=== PATIENT | female | born 1960 | race Caucasian/White ===

== ENCOUNTER 2023-09-01 08:53 | Outpatient (OUT) | payer OTHER, SELFPAY ==
--- NOTE | 2023-09-01 08:58 | MM_ITS ---
Patient: NORBERTO FREEMAN Exam Date: 09/01/2023 : 1960 Gender:F Ordering : DR Madhu Carrillo . Admission #: [id number] Family : DR Jayy Cordoba D.O. Order #: [id number] CLICK HERE TO VIEW EXAM RADIOLOGY REPORT PROCEDURE: MM TOMOSYNTHESIS SCREENING BI COMPARISON: MG MAMM SCREEN 3D GREG CAD, 05/29/2022. MG MAMM SCREEN 3D GREG CAD, 03/26/2021. INDICATIONS: Screening Calculator Name NCI Breast Cancer Risk Assessment Tool 5 Year Breast Cancer Risk 1.80% Lifetime Breast Cancer Risk 8.20% Personal Breast Cancer No Personal Ovarian Cancer No Treatments None Family Cancers Grandmother-maternal with uterine cancer at age ~60. LOCATION: [facility] BREAST COMPOSITION: Heterogeneously dense,which may obscure small masses. FINDINGS: DIAGNOSTIC CATEGORY 2--BENIGN FINDING. NO CHANGE FROM COMPARISON. Scattered benign-appearing nodules are present. Scattered benign-appearing calcifications are present. Scattered benign-appearing lymph nodes are present. RIGHT BREAST: No significant suspicious finding. LEFT BREAST: No significant suspicious finding. RECOMMENDATIONS: ROUTINE MAMMOGRAM AND CLINICAL EVALUATION IN 12 MONTHS. PLEASE NOTE: A NORMAL MAMMOGRAM DOES NOT EXCLUDE THE POSSIBILITY OF BREAST CANCER. A CLINICALLY SUSPICIOUS PALPABLE LUMP SHOULD BE BIOPSIED. Dictated by: Demetrio Paulino MD on 09/01/2023 at 10:51 Approved by: Demetrio Paulino MD on 09/01/2023 at 10:52
== END 2023-09-01 08:54 | disposition home or self-care (01) ==
LOC: MAMMO 08:53
PROVIDERS: PCP Internal Medicine; Visit Provider Obstetrics & Gynecology
DX: Z12.31 Encounter for screening mammogram for malignant neoplasm of breast (principal); Z80.49 Family history of malignant neoplasm of other genital organs
CPT/HCPCS: 77063; 77067

== ENCOUNTER 2024-01-31 20:42 | Outpatient (REF) | payer OTHER, SELFPAY ==
[2024-02-03 18:11] LABS: Age Gdln ACOG Testing Note (.); HPV Aptima Negative (Negative); IGP, Aptima HPV, rfx 16/18,45 Note (.)
== END 2024-01-31 20:43 | disposition home or self-care (01) ==
LOC: LAB 20:42
PROVIDERS: PCP Internal Medicine; Visit Provider Obstetrics & Gynecology
DX: Z01.419 Encounter for gynecological examination (general) (routine) without abnormal findings (principal)
CPT/HCPCS: 87624; G0145

== ENCOUNTER 2024-02-09 10:00 | Outpatient (OUT) | payer OTHER, SELFPAY ==
--- OUTSIDE RECORDS SUMMARY | 2024-02-09 10:16 | XMS_ITS | CCD ---
Author Name Unknown Address [address] [place] [address] Organization [facility] Care Team Providers Care Resource Development Manager Name Role Phone Nadege Yeboah Attending Unavailable Nadege Yeboah Admitting Unavailable Adalid, Jayy Primary Care Unavailable TRINO Yeboah Attending Provider [phone] DO Jayy Cordoba Primary Care Provider RADHA BOOGIE Admitting Unavailable RADHA BOOGIE Attending Unavailable ADALID, DR IRAHETA Primary Care Unavailable ABDIAZIZ, DR ANNALISE Short Admitting Unavailable ABDIAZIZ, DR ANNALISE Short Attending Unavailable BALL, DR IRAHETA Primary Care Unavailable WEST, DR ANNALISE Short Consulting Unavailable ABDIAZIZ, DR ANNALISE Short Admlorna Unavailable WEST, DR ANNALISE Short Attending Unavailable ADALID, DR IRAHETA Primary Care Unavailable ABDIAZIZ, DR ANNALISE Short Consulting Unavailable ABDIAZIZ, DR ANNALISE Short Admlorna Unavailable WEST, DR ANNALISE Short Attending Unavailable BALL, DR IRAHETA Primary Care Unavailable WEST, DR ANNALISE Short Consulting Unavailable ABDIAZIZ, DR ANNALISE Short Admlorna Unavailable ABDIAZIZ, DR ANNALISE Short Attending Unavailable ADALID, DR IRAHETA Primary Care Unavailable ABDIAZIZ, DR ANNALISE Short Consulting Unavailable ABDIAZIZ, DR ANNALISE Short Admlorna Unavailable ABDIAZIZ, DR ANNALISE Short Attending Unavailable BALL, DR IRAHETA Primary Care Unavailable WEST, DR ANNALISE Sohrt Consulting Unavailable PAULO ., DR GARCIA Admitting Unavailable PAULO ., DR GARCIA Attending Unavailable ADALID, DR IRAHETA Primary Care Unavailable ABDIAZIZ, DR ANNALISE Short Consulting Unavailable PAULO ., DR GARCIA Consulting Unavailable PETE, ANNALISE Kim Unavailable ABDIAZIZ, DR ANNALISE Short Admitting Unavailable ABDIAZIZ, DR ANNALISE Short Attending Unavailable ADALID, DR IRAHETA Primary Care Unavailable ABDIAZIZ, DR ANNALISE Short Consulting Unavailable ZIEBPARISA, DR J CARLOS Ruiz Consulting Unavailable ABDIAZIZ, DR ANNALISE Short Admitting Unavailable ABDIAZIZ, DR ANNALISE Short Attending Unavailable ADALID, DR IRAHETA Primary Care Unavailable WEST, DR ANNALISE Short Consulting Unavailable ABDIAZIZ, DR ANNALISE Short Admitting Unavailable WEST, DR ANNALISE Short Attending Unavailable BALL, DR IRAHETA Primary Care Unavailable WEST, DR ANNALISE Short Consulting Unavailable WEST, DR ANNALISE Short Admitting Unavailable WEST, DR ANNALISE Short Attending Unavailable BALL, DR IRAHETA Primary Care Unavailable WEST, DR ANNALISE Short Consulting Unavailable WEST, DR ANNALISE Short Admitting Unavailable WEST, DR ANNALISE Short Attending Unavailable BALL, DR IRAHETA Primary Care Unavailable WEST, DR ANNALISE Short Consulting Unavailable ZIEBER, DR J CARLOS Ruiz Consulting Unavailable WEST, DR ANNALISE Short Admitting Unavailable WEST, DR ANNALISE Short Attending Unavailable BALL, DR IRAHETA Primary Care Unavailable WEST, DR ANNALISE Short Consulting Unavailable ZIEBER, DR J CARLOS Ruiz Consulting Unavailable WEST, DR ANNALISE Short Attending Unavailable BALL, DR IRAHETA Primary Care Unavailable WEST, DR ANNALISE Short Consulting Unavailable WEST, DR ANNALISE Short Admitting Unavailable WEST, DR ANNALISE Short Admitting Unavailable WEST, DR ANNALISE Short Attending Unavailable BALL, DR IRAHETA Primary Care Unavailable WEST, DR ANNALISE Short Consulting Unavailable WEST, DR ANNALISE Short Admitting Unavailable WEST, DR ANNALISE Short Attending Unavailable BALL, DR IRAHETA Primary Care Unavailable WEST, DR ANNALISE Short Consulting Unavailable WEST, DR ANNALISE Short Admitting Unavailable WEST, DR ANNALISE Short Attending Unavailable BALL, DR IRAHETA Primary Care Unavailable WEST, DR ANNALISE Short Consulting Unavailable ZIEBER, DR J CARLOS Ruiz Consulting Unavailable BALL, DR IRAHETA Admitting Unavailable BALL, DR IRAHETA Attending Unavailable BALL, DR IRAHETA Primary Care Unavailable BALL, DR IRAHETA Consulting Unavailable WEST, DR ANNALISE Short Admitting Unavailable WEST, DR ANNALISE Short Attending Unavailable BALL, DR IRAHETA Primary Care Unavailable WEST, DR ANNALISE Short Consulting Unavailable WEST, DR ANNALISE Short Admlorna Unavailable WEST, DR ANNALISE Short Attending Unavailable BALL, DR IRAHETA Primary Care Unavailable WEST, DR ANNALISE Short Consulting Unavailable WEST, DR ANNALISE Short Admitting Unavailable WEST, DR ANNALISE Short Attending Unavailable BALL, DR IRAHETA Primary Care Unavailable WEST, DR ANNALISE Short Admitting Unavailable WEST, DR ANNALISE Short Attending Unavailable BALL, DR IRAHETA Primary Care Unavailable WEST, DR ANNALISE Short Consulting Unavailable HIGHLANDER, RADHA Lucero Admitting Unavailable HIGHLANDER, RADHA Lucero Attending Unavailable BALL, DR IRAHETA Primary Care Unavailable HIGHLANDER, RADHA Lucero Admitting Unavailable HIGHLANDER, RADHA Lucero Attending Unavailable BALL, DR IRAHETA Primary Care Unavailable HIGHLANDER, RADHA Lucero Admitting Unavailable HIGHLANDER, RADHA Lucero Attending Unavailable BALL, DR IRAHETA Primary Care Unavailable HIGHLANDER, RADHA Lucero Admitting Unavailable HIGHLANDER, RADHA Lucero Attending Unavailable BALL, DR IRAHETA Primary Care Unavailable HIGHLANDER, RADHA Lucero Admitting Unavailable HIGHLANDER, RADHA Lucero Attending Unavailable BALL, DR IRAHETA Primary Care Unavailable HIGHLANDER, RADHA Lucero Admitting Unavailable HIGHLANDER, RADHA Lucero Attending Unavailable ADALID, DR IRAHETA Primary Care Unavailable KI, DR J CARLOS Ruiz Consulting Unavailable CHUYITA, RADHA Lucero Consulting Unavailable RADHA BOOGIE Admitting Unavailable CHUYITA, RADHA Lucero Attending Unavailable BALL, DR IRAHETA Primary Care Unavailable PAULO ., DR GARCIA Admitting Unavailable PAULO ., DR GARCIA Attending Unavailable BALL, DR IRAHETA Primary Care Unavailable PAULO ., DR GARCIA Consulting Unavailable WEST, DR ANNALISE Short Admitting Unavailable WEST, DR ANNALISE Short Attending Unavailable BALL, DR IRAHETA Primary Care Unavailable WEST, DR ANNALISE Short Consulting Unavailable WEST, DR ANNALISE Short Admitting Unavailable WEST, DR ANNALISE Short Attending Unavailable BALL, DR IRAHETA Primary Care Unavailable WEST, DR ANNALISE Short Consulting Unavailable KI, DR J CARLOS Ruiz Consulting Unavailable WEST, DR ANNALISE Short Admitting Unavailable WEST, DR ANNALISE Short Attending Unavailable BALL, DR IRAHETA Primary Care Unavailable WEST, DR ANNALISE Short Consulting Unavailable PAULO, RADHA Attending Unavailable Allergies Allergy Classification Reported Allergen(s) Allergy Type Date of Onset Reaction(s) Facility (3 sources) Sulfonamides (Antibiotic) Drug allergy (disorder) 08-05-2022 [facility] Repository (1 source) Sulfonamides (Antibiotic) Drug allergy (disorder) 12-27-2013 [facility] Repository Problems Active Problems Problem Classification Problem Date Documented Da te Episodic/Chronic Asthma (1 source) Mild intermittent asthma with (acute) exacerbation; Translations: [MILD INTERMIT ASTHMA W/AC EXACERBAT] Onset: 2 Chronic Chronic ulcer of skin (2 sources) Non-pressure chronic ulcer of unspecified ankle with unspecified severity; Translations: [Non-pressure chronic ulcer of left ankle limited to breakdown of skin] Onset: 2 Chronic Disorders of lipid metabolism (1 source) Familial hypercholesterolemia; Translations: [FAMILIAL HYPERCHOLESTEROLEMIA] Onset: 2 Chronic Essential hypertension (1 source) Essential (primary) hypertension; Translations: [ESSENTIAL PRIMARY HYPERTENSION] Onset: 2 Chronic Immunizations and screening for infectious disease (1 source) Encounter for screening for human papillomavirus (HPV); Translations: [ENC SCREENING HUMAN PAPILLOMAVIRUS] Onset: 3 Episodic Osteoporosis (1 source) Age-related osteoporosis without current pathological fracture; Translations: [AGE-REL OSTEOPOR W/O CURR PATH FX] Onset: 2 Chronic Other diseases of veins and lymphatics (5 sources) Chronic venous hypertension (idiopathic) with ulcer of left lower extremity; Translations: [CHRON VENOUS HTN W/ULCER LT LW EXT] Onset: 2 Chronic Other diseases of veins and lymphatics (1 source) Stasis dermatitis; Translations: [Venous insufficiency (chronic) (peripheral)] 08-20-2022 Episodic Other nutritional; endocrine; and metabolic disorders (1 source) Obesity, unspecified; Translations: [OBESITY UNSPECIFIED] Onset: 2 Chronic Other nutritional; endocrine; and metabolic disorders (3 sources) Overweight; Translations: [Overweight] Onset: 2 08-05-2022 Episodic Other nutritional; endocrine; and metabolic disorders (1 source) Overweight; Translations: [Overweight] 08-20-2022 Episodic Other screening for suspected conditions (not mental disorders or infectious disease) (8 sources) Encounter for screening for malignant neoplasm of cervix; Translations: [Encounter for screening mammogram for malignant neoplasm of breast] Onset: 2 Episodic Other skin disorders (3 sources) Other specified disorders of pigmentation; Translations: [Dyschromia, unspecified] Onset: 2 08-05-2022 Episodic Other skin disorders (1 source) Hemosiderin pigmentation of lower limb due to varicose veins of lower limb; Translations: [Other specified disorders of pigmentation] 08-20-2022 Episodic Other skin disorders (4 sources) Corns and callosities; Translations: [CORNS AND CALLOSITIES] Onset: 2 Episodic Phlebitis; thrombophlebitis and thromboembolism (14 sources) Phlebitis and thrombophlebitis of superficial vessels of right lower extremity; Translations: [Phlebitis and thrombophlebitis of superficial vessels of left lower extremity] Onset: 2 Episodic Residual codes; unclassified (4 sources) Localized edema; Translations: [Edema] Onset: 2 08-05-2022 Episodic Residual codes; unclassified (1 source) Edema of left lower leg; Translations: [Localized edema] 08-20-2022 Episodic Unclassified (1 source) 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; Translations: [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] Onset: 2 Unclassified (1 source) Non-pressure chronic ulcer of unspecified ankle with unspecified severity; Translations: [Non-pressure chronic ulcer of unspecified ankle with unspecified severity] Onset: 2 Varicose veins of lower extremity (10 sources) Varicose veins of unspecified lower extremity with other complications; Translations: [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] Onset: 2 08-20-2022 Episodic Past or Other Problems Problem Classification Problem Date Documented Date Episodic/Chronic Other diseases of veins and lymphatics (8 sources) Venous insufficiency (chronic) (peripheral); Translations: [Varicose veins of lower extremities with inflammation] Onset: 08-05-2022 08-05-2022 Episodic Other non-traumatic joint disorders (1 source) Pain in left ankle and joints of left foot; Translations: [PAIN IN LEFT ANKLE] Onset: 05-28-2022 Episodic Other upper respiratory infections (4 sources) Acute upper respiratory infection, unspecified; Translations: [ACUTE UP RESPIRATORY INFECTION UNS] Onset: 08-14-2022 Episodic Residual codes; unclassified (1 source) Asymptomatic menopausal state; Translations: [ASYMPTOMATIC MENOPAUSAL STATE] Onset: 06-04-2022 Episodic Residual codes; unclassified (1 source) Family history of malignant neoplasm of other genital organs; Translations: [FAM HX MALIG NEOPLSM OTH GENIT ORGN] Onset: 06-04-2022 Episodic Results Test Name Value Interpretation Reference Range Facility PAP ACOG PANEL 2: 30 to 65on 02-02-2023 . . [facility] Comment on above: Result Comment: Perf ormed at: WB Performed By: #### [id number] ####[facility] [address] [place] [address]DrRoxie Link Age Gdln ACOG Testing 30-65 [facility] Comment on above: Performed By: #### [id number] ####[facility] [address] [place] [address]DrRoxie Link DIAGNOSIS: Comment [facility] Comment on above: Result Comment: NEGA TIVE FOR INTRAEPITHELIAL LESION OR MALIGNANCY. Performed at: WB Performed By: #### [id number] ####[facility] [address] [place] [id number]. Edy Link HPV Aptima Negative Normal Negative [facility] Comment on above: Result Comment: This nucleic acid amplification test detects fourteen high-risk HPV types (16,18,31,33,35,39,45,51,52,56,58,59,66,68) without differentiation. Performed at: =G Performed By: #### [id number] ####[facility] [address] [place] [id number]. Edy Link HPV Genotype Reflex Comment Normal [facility] Comment on above: Result Comment: Crit eria not met, HPV Genotype not performed. Performed at: WB Performed By: #### [id number] ####[facility] [address] [place], [place] [address]Dr. Edy Link Methodology: Comment [facility] Comment on above: Result Comment: This liquid based ThinPrep(R) pap test was screened with the use of an image guided system. Performed at: WB Performed By: #### [id number] ####[facility] [address] [place] [id number]. Edy Link Note: Comment [facility] Comment on above: Result Comment: The Pap smear is a screening test designed to aid in the detection of premalignant and malignant conditions of the uterine cervix. It is not a diagnostic procedure and should not be used as the sole means of detecting cervical cancer. Both false-positive and false-negative reports do occur. . Performed at: WB Performed By: #### [id number] ####[facility] [address] [place] [id number] Link Performed by: Comment Normal [facility] Comment on above: Result Comment: Maritza Zelaya, Fraud Prevention Analyst (ASCP) Performed at: WB Performed By: #### [id number] ####[facility] [address] [place] [id number] Link Specimen adequacy: Comment Normal [facility] Comment on above: Result Comment: Sati sfactory for evaluation. Endocervical and/or squamous metaplastic cells (endocervical component) are present. Performed at: WB Performed By: #### [id number] ####[facility] [address] [place], [place] [address]EaDr. Edy Link VC INJ SCL MARYBETH LIVESTOCK BRANDS INSPECTOR VEINSon 1 VC INJ SCL MARYBETH LIVESTOCK BRANDS INSPECTOR VEINS Patient: NORBERTO HERNANDEZ Exam Date: 11/27/2022 : 1960 Gender:F Ordering : DR ANNALISE FREED M.D. Admission #: [id number] Family : Order #: [id number] CLICK HERE TO VIEW EXAM RADIOLOGY REPORT PROCEDURE: VEIN CENTER INJECTION SCLEROSING SOLUTION MULTIPLE VEINS SAME COMPARISON: VC INJ SCL MARYBETH LIVESTOCK BRANDS INSPECTOR VEINS, 11/26/2022. VC INJ SCL MARYBETH LIVESTOCK BRANDS INSPECTOR VEINS, 11/24/2022. INDICATIONS: Pain co-occurrent and due to varicose veins of bilateral legs I83.813 PROCEDURE NOTE: The risks and benefits of the procedure were explained at length to the patient and informed written consent was obtained. Benito Bowser was present and assisted. The procedure was performed under sterile technique. The patient's leg was wrapped with Coban and postprocedural verbal and written instructions provided. SCLEROSANT: 4 cc, 0.5% polidocanol VEIN(S) INJECTED: 27 veins in the left leg VISUALIZATION: Ultrasound was not used to visualize the sclerosant ANESTHESIA Supercooled air COMPLICATIONS: None CONCLUSION: 1. Technically successful sclerotherapy as described Dictated by: Annalise Freed MD on 11/27/2022 at 10:33 Approved by: Annalise Freed MD on 11/27/2022 at 10:34 Normal [facility] VC INJ SCL MARYBETH LIVESTOCK BRANDS INSPECTOR VEINSon 1 VC INJ SCL MARYBETH LIVESTOCK BRANDS INSPECTOR VEINS Patient: NORBERTO HERNANDEZ Exam Date: 11/26/2022 : 1960 Gender:F Ordering : DR ANNALISE FREED M.D. Admission #: [id number] Family : Order #: [id number] CLICK HERE TO VIEW EXAM RADIOLOGY REPORT PROCEDURE: VEIN CENTER INJECTION SCLEROSING SOLUTION MULTIPLE VEINS SAME COMPARISON: VC INJ SCL MARYBETH LIVESTOCK BRANDS INSPECTOR VEINS, 11/24/2022. INDICATIONS: Pain co-occurrent and due to varicose veins of bilateral legs I83.813 PROCEDURE NOTE: The risks and benefits of the procedure were explained at length to the patient and informed written consent was obtained. Benito Bowser was present and assisted. The procedure was performed under sterile technique. The patient's leg was wrapped with Coban and postprocedural verbal and written instructions provided. SCLEROSANT: 4 cc, 0.5% polidocanol VEIN(S) INJECTED: 18 veins in the right leg VISUALIZATION: Ultrasound was not used to visualize the sclerosant ANESTHESIA Supercooled air COMPLICATIONS: None CONCLUSION: 1. Technically successful sclerotherapy as described Dictated by: Annalise Freed MD on 11/26/2022 at 09:59 Approved by: Annalise Freed MD on 11/26/2022 at 10:04 Normal [facility] VC CONSULT FOLLOWUPon 2021 VC CONSULT FOLLOWUP Patient: PDERO HERNANDEZ Exam Date: 11/25/2022 : 1960 Gender:F Ordering : DR ANNALISE FREED M.D. Admission #: [id number] Family : Order #: [id number] CLICK HERE TO VIEW EXAM RADIOLOGY REPORT PROCEDURE: VEIN CENTER CONSULTATION FOLLOWUP VEIN CENTER - OFFICE VISIT FOLLOW UP COMPARISON: VC CONSULT FOLLOWUP, 11/16/2022. VC CONSULT FOLLOWUP, 11/12/2022. PROGRESS NOTES: The patient reports that no significant pain following micro foam chemical ablation the right leg. The patient did not require oral analgesics. The patient has worn compression stocking. The patient has followed our recommendations to walk 20-30 minutes once or twice per day since the procedure. Physical exam demonstrates multiple thrombosed varicose veins. No significant varicose veins. Moderate diffuse reticular spider veins. Review of the ultrasound performed the same day demonstrates occlusive thrombus extending throughout the treated right leg incompetent veins. No deep vein thrombus. The patient expressed a desire to proceed with treatment of bilateral reticular and spider veins with injection sclerotherapy. IMPRESSION: 1. Successful ablation of needed right leg incompetent varicose veins 2. Persistent bilateral reticular and spider PLAN: Injection sclerotherapy reticular and spider veins Nurse notes, history and physical were reviewed and confirmed, see attached forms. The nurse was present throughout the physical exam and consultation Dictated by: Annalise Freed MD on 11/25/2022 at 15:33 Approved by: Annalise Freed MD on 11/25/2022 at 15:34 Normal [facility] VC EXT VENOUS RT LIMITEDon 1 01-26-2022 VC EXT VENOUS RT LIMITED Patient: NORBERTO HERNANDEZ. Exam Date: 11/25/2022 : 1960 Gender:F Ordering : DR ANNALISE FREED M.D. Admission #: [id number] Family : Order #: [id number] CLICK HERE TO VIEW EXAM RADIOLOGY REPORT PROCEDURE: VEIN CENTER EXTREMITY VENOUS RIGHT LIMITED COMPARISON: VC EXT VENOUS RT LIMITED, 09/09/2022. INDICATIONS: Phlebitis and thrombophlebitis of superficial veins of right lower extremity I80.01 TECHNIQUE: Lower extremity mann scale and Duplex Doppler evaluation of the deep venous system from the inguinal ligament through the calf veins. FINDINGS: REGION: Right lower extremity. THROMBI: Negative for DVT. Chemically induced thrombus in multiple varicose veins anterior mid-distal thigh. COMPRESSIBILITY: Non-compressible segments. FLOW: Areas of no flow. OTHER: No significant varicose veins remain in right leg. *Exam performed in accordance with [facility] practice guidelines- Peripheral venous ultrasound, February 22, 2010. CONCLUSION: Post ablation occlusion treated right leg varicose veins. No residual incompetent varicose veins are observed Dictated by: Annalise Freed MD on 11/25/2022 at 09:51 Approved by: Annalise Freed MD on 11/25/2022 at 09:51 Normal [facility] VC INJ SCL MARYBETH LIVESTOCK BRANDS INSPECTOR VEINSon 1 01-25-2022 VC INJ SCL MARYBETH LIVESTOCK BRANDS INSPECTOR VEINS Patient: NORBERTO HERNANDEZ Exam Date: 11/24/2022 : 1960 Gender:F Ordering : DR ANNALISE FREED M.D. Admission #: [id number] Family : Order #: [id number] CLICK HERE TO VIEW EXAM RADIOLOGY REPORT PROCEDURE: VEIN CENTER INJECTION SCLEROSING SOLUTION MULTIPLE VEINS SAME COMPARISON: None. INDICATIONS: Pain co-occurrent and due to varicose veins of bilateral legs I83.813 PROCEDURE NOTE: The risks and benefits of the procedure were explained at length to the patient and informed written consent was obtained. Benito Bowser was present and assisted. The procedure was performed under sterile technique. The patient's leg was wrapped with Coban and postprocedural verbal and written instructions provided. SCLEROSANT: 4 cc, 0.5% polidocanol VEIN(S) INJECTED: 27 veins in the let leg VISUALIZATION: Ultrasound was not used to visualize the sclerosant ANESTHESIA Supercooled air COMPLICATIONS: None CONCLUSION: 1. Technically successful sclerotherapy as described Dictated by: Annalise Freed MD on 11/24/2022 at 11:04 Approved by: Annalise Freed MD on 11/24/2022 at 11:04 Normal [facility] VC INJ FOAM SCLERO W US MLTI on 11-19-2022 VC INJ FOAM SCLERO W US MLTI Patient: NORBERTO HERNANDEZ Exam Date: 11/19/2022 : 1960 Gender:F Ordering : DR ANNALISE FREED M.D. Admission #: [id number] Family : Order #: [id number] CLICK HERE TO VIEW EXAM RADIOLOGY REPORT PROCEDURE: VEIN CENTER INJECTION FOAM SCLEROSING SOLUTION WITH ULTRASOUND MULTIPLE VEINS COMPARISON: VC INJ FOAM SCLERO W US MLTI, 11/13/2022. Pre-operative Diagnosis: CEAP class C4a venous insufficiency with pain, tenderness, edema and incompetent branch saphenous vein, chronic venous insufficiency right leg secondary to venous incompetence Post-operative Diagnosis: CEAP class C4a venous insufficiency with pain, tenderness, edema and incompetent branch saphenous vein, chronic venous insufficiency right leg secondary to venous incompetence Procedure Performed: 1. Ultrasound-guided microfoam chemical ablation with Varithena(r) 2. Intraoperative ultrasound guidance Physician: J Carlos Schwartz M.D. Anesthesia: None. Indications for Procedure: 62 year old female. Symptoms including lower extremity swelling, pain, ulceration for many years despite conservative medical therapy including medical compression stockings, exercise and analgesics. Prior procedures include: Endovenous laser ablation and microfoam chemical ablation. Multiple incompetent varicosities of the right leg. Duplex scan showed reflux and enlarged diameters up to 5 mm. The patient has undergone informed consent including management options where the complications of infection, bleeding, pain, and skin injury were discussed. Particular attention was spent discussing thrombus extension and deep vein thrombosis as well as the possibility of pulmonary embolus and treatment with oral or injectable blood thinners. Procedure: The patient walked to the procedure room. All applicable staff donned appropriate apparel. A procedure timeout was performed to confirm correct patient, correct extremity, correct procedure, and correct room set-up including presence of all applicable supplies, devices, and drugs. A duplex ultrasound, performed by myself confirmed the location and incompetence of branch saphenous varicosities and their course was marked on the skin together with the dilated tributaries. The extent of treatment of the veins and the associated varicosities was determined through ultrasound mapping. The skin was prepped and then punctured with a butterfly needle and advanced under ultrasound guidance. The Varithena(r) canister was activated and the canister was primed and purged as required in the instructions for use. Varithena(r) was drawn into a sterile syringe. Varithena(r) was slowly administered at 0.5-1.0 cc/second with close observation by ultrasound of its course in the vessels. Total volume utilized was: 15 mL (12 mL within a 5 mm varicosity of the right mid anterior upper leg; 3 mL within a 5 mm varicosity of the anterior mid thigh). Following administration of Varithena(r), the leg was elevated and the patient was asked to repeatedly dorsiflex the ankle to limit flow of Varithena(r) into perforating veins. Once appropriate spasm had been confirmed in the treated veins, the vascular catheter was removed from the leg and light pressure was applied over the puncture site for hemostasis The common femoral and deep superficial veins were then evaluated for flow and compressibility prior to dressing placement. The lower extremity was kept elevated at 45 degrees above the horizontal and cording material was applied over the saphenous segments and tributaries to allow for eccentric compression over the target vessels including the targeted saphenous vein(s). A multilayer dressing was applied consisting of foam pads, coban and thigh-high 20-30 mm Hg compression elastic support hose were placed on the patient. The leg was lowered only after compression had been applied and the patient was immediately ambulatory. The patient ambulated 10 minutes under supervision and was without apparent concerns at time of release Post-care instructions include advising patient to keep post-treatment bandages in place and dry for 48 hours, avoid extended periods of inactivity, avoid heavy exercise for one week, wear compression stockings on the treated leg continuously for two weeks, to walk daily for 10 minutes over the next month. The patient was instructed to take an anti-inflammatory medicine as needed and to follow up for color duplex scan of the Saphenous veins, the treated branch saphenous varicosities, the adjacent deep veins, and additional treatment within 7 days. PERSONNEL: Benito Bowser R.N. Dictated by: J Carlos Schwartz M.D. on 11/19/2022 at 09:56 Approved by: J Carlos Schwartz M.D. on 11/19/2022 at 10:04 Normal [facility] VC CONSULT FOLLOWUPon 2021 VC CONSULT FOLLOWUP Patient: PEDRO HERNANDEZ Exam Date: 11/16/2022 : 1960 Gender:F Ordering : DR ANNALISE FREED M.D. Admission #: [id number] Family : Order #: [id number] CLICK HERE TO VIEW EXAM RADIOLOGY REPORT PROCEDURE: VEIN CENTER CONSULTATION FOLLOWUP VEIN CENTER - OFFICE VISIT FOLLOW UP COMPARISON: VC CONSULT FOLLOWUP, 11/12/2022. PROGRESS NOTES: The patient reports improvement in leg symptoms and significant healing of prior chronic wound. There has been interval reduction in varicosities. The patient has followed our recommendations to walk 20-30 minutes once or twice per day since the procedure. Physical exam demonstrates marked improvement/complete healing of prior left ankle wound, and decreased varicosities of the legs. Persistent areas of postprocedure bruising are identified along the legs. Review of the ultrasound performed the same day demonstrates occlusive thrombus extending throughout the treated vein, see separate report, consistent with a successful ablation. No thrombus extending into or beyond the saphenofemoral junction. To residual branch saphenous varicosities remain and will be subsequently treated on next visit. The patient expressed a desire to proceed with treatment of remaining branch saphenous varicosities. The patient was informed that treatment was a process and would require 1 more procedures/sessions of erythema; than patient would be able to proceed with sclerotherapy. IMPRESSION: 1. Successful ablation of the treated branch saphenous veins. 2. Persistent incompetent varicose veins ; 1 on right and 1 on left. PLAN: Microfoam chemical ablation of remaining incompetent branch saphenous varicosity within right lag and 1 within the left leg. Nurse notes, history and physical were reviewed and confirmed, see attached forms. The nurse was present throughout the physical exam and consultation Dictated by: J Carlos Schwartz M.D. on 11/16/2022 at 11:17 Approved by: J Carlos Schwartz M.D. on 11/16/2022 at 11:21 Normal [facility] VC EXT VENOUS LT LIMITEDon 1 01-17-2022 VC EXT VENOUS LT LIMITED Patient: NORBERTO HERNANDEZ Exam Date: 11/16/2022 : 1960 Gender:F Ordering : DR ANNALISE FREED M.D. Admission #: [id number] Family : Order #: [id number] CLICK HERE TO VIEW EXAM RADIOLOGY REPORT PROCEDURE: VEIN CENTER EXTREMITY VENOUS LEFT LIMITED COMPARISON: VC EXT VENOUS LT LIMITED, 11/02/2022. INDICATIONS: Phlebitis and thrombophlebitis of superficial veins of left lower extremity I80.02 TECHNIQUE: Lower extremity mann scale and Duplex Doppler evaluation of the deep venous system from the inguinal ligament through the calf veins. FINDINGS: REGION: Left lower extremity. THROMBI: Negative for DVT. Chemically induced thrombus in left leg multiple varicose veins and AASV approximately 7 cm from juction. COMPRESSIBILITY: Non-compressible segments. FLOW: Areas of no flow. OTHER: 3.2 mm patent varicose vein remains in mid calf. CONCLUSION: 1. Successful post ablation occlusion of treated branch saphenous varicosities within left lower extremity. Dictated by: J Carlos Schwartz M.D. on 11/16/2022 at 11:07 Approved by: J Carlos Schwartz M.D. on 11/16/2022 at 11:17 Normal [facility] VC INJ FOAM SCLERO W US MLTI on 11-13-2022 VC INJ FOAM SCLERO W US MLTI Patient: NORBERTO HERNANDEZ Exam Date: 11/13/2022 : 1960 Gender:F Ordering : DR ANNALISE FREED M.D. Admission #: [id number] Family : Order #: [id number] CLICK HERE TO VIEW EXAM RADIOLOGY REPORT PROCEDURE: VEIN CENTER INJECTION FOAM SCLEROSING SOLUTION WITH ULTRASOUND MULTIPLE VEINS COMPARISON: VC INJ FOAM SCLERO W US MLTI, 11/09/2022. VC INJ FOAM SCLERO W US MLTI, 11/06/2022. Pre-operative Diagnosis: CEAP class C6 venous insufficiency with pain, tenderness, edema and incompetent left great saphenous vein and branch saphenous tributaries/varicose veins, chronic venous insufficiency left leg secondary to venous incompetence Post-operative Diagnosis: CEAP class C6 venous insufficiency with pain, tenderness, edema and incompetent left great saphenous vein and branch saphenous tributaries/varicose veins, chronic venous insufficiency left leg secondary to venous incompetence Procedure Performed: 1. Ultrasound-guided microfoam chemical ablation with Varithena(r) 2. Intraoperative ultrasound guidance Physician: Annalise Freed M.D. Anesthesia: None Indications for Procedure: 62-year-old female who presents with a long history of pain, swelling and active venous stasis ulcerations. Patient failed conservative medical therapy including medical compression stockings, exercise and analgesics. Prior procedures include intravenous laser ablation and micro foam chemical ablation Multiple incompetent varicosities of the left leg. Duplex scan showed reflux and enlarged diameters up to 14 mm. The patient underwent informed consent including management options where the complications of infection, bleeding, pain, and skin injury were discussed. Particular attention was spent discussing thrombus extension and deep vein thrombosis as well as the possibility of pulmonary embolus and treatment with oral or injectable blood thinners. Procedure: The patient walked to the procedure room. All applicable staff donned appropriate apparel. A procedure timeout was performed to confirm correct patient, correct extremity, correct procedure, and correct room set-up including presence of all applicable supplies, devices, and drugs. A duplex ultrasound, performed by myself confirmed the location and incompetence of a ghost veins and their course marked on the skin together with the dilated tributaries. The extent of treatment of the vein and the associated varicosities was determined through ultrasound mapping. The patient was placed on the operating room table. The limb was prepped. The skin was punctured with a butterfly needle through the skin with the venous access needle and advanced under ultrasound guidance. The target limb was positioned at 45 degrees of elevation in relation to the torso utilizing a foam pad. The Varithena(r) canister was previously activated and the canister was primed and purged as required in the instructions for use. The following injections were made: 7 mL aliquot of Varithena(r) was drawn into a sterile syringe. Injection into a 4 mm varicose vein distal medial left lower leg, this was a tributary of great saphenous vein, foam also flowed into an incompetent left anterior accessory saphenous vein. 5 mL aliquot of Varithena(r) was drawn into a sterile syringe. Injection into a 14 mm incompetent patent left anterior accessory saphenous vein. The outflow tract was held for 10 minutes until dissipation the foam was observed by ultrasound 1 mL aliquot of Varithena(r) was drawn into a sterile syringe. Injection into a 4 mm varicose vein left lateral distal lower leg 2 mL aliquot of Varithena(r) was drawn into a sterile syringe. Injection into a 4 mm varicose vein medial mid lower leg Varithena(r) was slowly administered at 0.5-1.0 cc/second with close observation by ultrasound of its course in the left anterior accessory saphenous vein and varicose veins. A total volume of 15 mL of Varithena(r) was used. During administration of Varithena(r), the patient was asked to dorsiflex the ankle to limit flow of Varithena(r) into perforating veins. Once appropriate spasm had been confirmed in the treated veins, the vascular catheter was removed from the leg and light pressure was applied over the puncture site for hemostasis The common femoral and deep superficial veins were then evaluated for flow and compressibility prior to dressing placement. The lower extremity was kept elevated at 45 degrees above the horizontal and cording material was applied over the saphenous segments and tributaries to allow for eccentric compression over the target vessels including the targeted saphenous vein(s). A multilayer dressing was applied consisting of foam pads, coban and thigh-high 20-30 mm Hg compression elastic support hose were placed on the patient. The leg was lowered only after compression had been applied and the patient was immediately ambulatory. The pat (more content not included)... Normal [facility] VC CONSULT FOLLOWUPon 2021 VC CONSULT FOLLOWUP Patient: PEDRO HERNANDEZ Exam Date: 11/12/2022 : 1960 Gender:F Ordering : DR ANNALISE FREED M.D. Admission #: [id number] Family : Order #: [id number] CLICK HERE TO VIEW EXAM RADIOLOGY REPORT PROCEDURE: VEIN CENTER CONSULTATION FOLLOWUP VEIN CENTER - OFFICE VISIT FOLLOW UP COMPARISON: VC CONSULT FOLLOWUP, 11/02/2022. VC CONSULT FOLLOWUP, 10/26/2022. PROGRESS NOTES: The patient reports no significant pain following micro foam chemical ablation of the left leg. The patient did not require oral analgesics. The patient has worn her compression stocking as directed. The patient has followed our recommendations to walk 20-30 minutes once or twice per day since the procedure. The patient reports continued improvement in her initial presenting symptoms read physical exam demonstrates multiple thrombosed varicose veins. Multiple incompetent varicose veins are observed, left greater than right. No areas of erythema or warmth to suggest cellulitis or thrombophlebitis period no active ulcerations. There is mild to moderate bilateral hemosiderin staining, previously discussed with the patient. Ultrasound demonstrates bilat superficial vein thrombus related to injections. Residual incompetent bilateral varicose veins measuring to 16.4 mm on the left. The patient expressed a desire to proceed with treatment of incompetent varicose veins with micro foam chemical ablation. IMPRESSION: 1. Successful ablation of incompetent left leg varicose veins 2. Persistent incompetent bilateral varicose veins PLAN: Micro foam chemical ablation left leg Nurse notes, history and physical were reviewed and confirmed, see attached forms. The nurse was present throughout the physical exam and consultation Dictated by: Annalise Freed MD on 11/12/2022 at 12:38 Approved by: Annalise Freed MD on 11/12/2022 at 12:40 Normal [facility] VC EXT VENOUS GREG LIMITEDon 11-12-2022 VC EXT VENOUS GREG LIMITED Patient: NORBERTO HERNANDEZ Exam Date: 11/12/2022 : 1960 Gender:F Ordering : DR ANNALISE FREED M.D. Admission #: [id number] Family : Order #: [id number] CLICK HERE TO VIEW EXAM RADIOLOGY REPORT PROCEDURE: VEIN CENTER EXTREMITY VENOUS BILATERAL LIMITED COMPARISON: None. INDICATIONS: Phlebitis of superficial veins of lower extremity I80.03 TECHNIQUE: Lower extremity mann scale and Duplex Doppler evaluation of the deep venous system from the inguinal ligament through the calf veins. FINDINGS: REGION: Right lower extremity. THROMBI: None. Varithena induced thrombus visualized at dist/med calf and prox/med calf COMPRESSIBILITY: Non-compressible segments corresponding to thrombus. FLOW: Absent flow corresponding to thrombus OTHER: Patent varicose vein mid/med thigh 4.0 mm with 1.3s reflux. Patent varicose vein dist/med thigh 3.8mm with 0.9s reflux. REGION: Left lower extremity. THROMBI: None.Varithena induced thrombus visualized at prox/med thigh, prox/med calf, ant/dist thigh, and lat/dist calf. COMPRESSIBILITY: Noncompressible segments corresponding to thrombus FLOW: Absent flow corresponding to thrombus OTHER: Patent varicose vein mid/med thigh 7.3mm with 0.9s reflux. Patent varicose vein mid/med thigh 16.4mm with 1.4s reflux. *Exam performed in accordance with [facility] practice guidelines- Peripheral venous ultrasound, February 22, 2010. CONCLUSION: Post ablation occlusion of bilateral incompetent varicose veins with multiple residual income varicose veins measuring up to 16.4 mm Dictated by: Annalise Freed MD on 11/12/2022 at 12:10 Approved by: Annalise Freed MD on 11/12/2022 at 12:38 Normal [facility] VC INJ FOAM SCLERO W US MLTI on 11-09-2022 VC INJ FOAM SCLERO W US MLTI Patient: NORBERTO HERNANDEZ Exam Date: 11/09/2022 : 1960 Gender:F Ordering : DR ANNALISE FREED M.D. Admission #: [id number] Family : Order #: [id number] CLICK HERE TO VIEW EXAM RADIOLOGY REPORT PROCEDURE: VEIN CENTER INJECTION FOAM SCLEROSING SOLUTION WITH ULTRASOUND MULTIPLE VEINS COMPARISON: VC INJ FOAM SCLERO W US MLTI, 11/06/2022. VC INJ FOAM SCLERO W US MLTI, 10/28/2022. Pre-operative Diagnosis: CEAP class C4a venous insufficiency with pain, tenderness, edema and incompetent left great saphenous vein and branch saphenous tributary/varicose veins, chronic venous insufficiency left leg secondary to venous incompetence Post-operative Diagnosis: CEAP class C4a venous insufficiency with pain, tenderness, edema and incompetent left great saphenous vein and branch saphenous tributary/varicose veins, chronic venous insufficiency left leg secondary to venous incompetence Procedure Performed: 1. Ultrasound-guided microfoam chemical ablation with Varithena(r) 2. Intraoperative ultrasound guidance Physician: Annalise Freed M.D. Anesthesia: None Indications for Procedure: 62-year-old female who presents with a long history pain swelling and active venous stasis ulcerations. The patient failed conservative medical therapy including medical compression stockings, exercise and analgesics. Prior procedures include laser ablation and micro foam chemical ablation Multiple incompetent varicosities of the left leg. Duplex scan showed reflux and enlarged diameters up to 5 mm. The patient underwent informed consent including management options where the complications of infection, bleeding, pain, and skin injury were discussed. Particular attention was spent discussing thrombus extension and deep vein thrombosis as well as the possibility of pulmonary embolus and treatment with oral or injectable blood thinners. Procedure: The patient walked to the procedure room. All applicable staff donned appropriate apparel. A procedure timeout was performed to confirm correct patient, correct extremity, correct procedure, and correct room set-up including presence of all applicable supplies, devices, and drugs. A duplex ultrasound, performed by myself confirmed the location and incompetence of left leg varicose veins and their course marked on the skin together with the dilated tributaries. The extent of treatment of the vein and the associated varicosities was determined through ultrasound mapping. The patient was placed on the operating room table. The limb was prepped. The skin was punctured with a butterfly needle through the skin with the venous access needle and advanced under ultrasound guidance. The target limb was positioned at 45 degrees of elevation in relation to the torso utilizing a foam pad. The Varithena(r) canister was activated and the canister was primed and purged as required in the instructions for use. The following injections were made: 5 mL aliquot of Varithena(r) was drawn into a sterile syringe. Injection into a 5 mm varicose vein distal medial left lower leg 4 mL aliquot of Varithena(r) was drawn into a sterile syringe. Injection into a 4 mm varicose vein medial left distal thigh 3 mL aliquot of Varithena(r) was drawn into a sterile syringe. Injection into a 4 mm varicose vein distal anterior 3 mL aliquot of Varithena(r) was drawn into a sterile syringe. Injection into a 4 mm varicose vein lateral distal left lower leg Varithena(r) was slowly administered at 0.5-1.0 cc/second with close observation by ultrasound of its course in the injected veins. A total volume of 15 mL of Varithena(r) was used. During administration of Varithena(r), the patient was asked to dorsiflex the ankle to limit flow of Varithena(r) into perforating veins. Once appropriate spasm had been confirmed in the treated veins, the vascular catheter was removed from the leg and light pressure was applied over the puncture site for hemostasis The common femoral and deep superficial veins were then evaluated for flow and compressibility prior to dressing placement. The lower extremity was kept elevated at 45 degrees above the horizontal and cording material was applied over the saphenous segments and tributaries to allow for eccentric compression over the target vessels including the targeted saphenous vein(s). A multilayer dressing was applied consisting of foam pads, coban and thigh-high 20-30 mm Hg compression elastic support hose were placed on the patient. The leg was lowered only after compression had been applied and the patient was immediately ambulatory. The patient ambulated 10 minutes under supervision and was without apparent concerns at time of release Post-care instructions include advising patient to keep post-treatment bandages in place and dry for 48 hours, avoid extended periods of inactivity, avoid heavy exercise for one week, wear compression stockings o (more content not included)... Normal [facility] VC INJ FOAM SCLERO W US MLTI on 11-06-2022 VC INJ FOAM SCLERO W US MLTI Patient: NORBERTO HERNANDEZ Exam Date: 11/06/2022 : 1960 Gender:F Ordering : DR ANNALISE FREED M.D. Admission #: [id number] Family : Order #: [id number] CLICK HERE TO VIEW EXAM RADIOLOGY REPORT PROCEDURE: VEIN CENTER INJECTION FOAM SCLEROSING SOLUTION WITH ULTRASOUND MULTIPLE VEINS COMPARISON: VC INJ FOAM SCLERO W US MLTI, 10/28/2022. VC INJ FOAM SCLERO W US MLTI, 10/19/2022. Pre-operative Diagnosis: CEAP class C4a venous insufficiency with pain, tenderness, edema and incompetent right great saphenous vein and varicose veins, chronic venous insufficiency right leg secondary to venous incompetence Post-operative Diagnosis: CEAP class C4a venous insufficiency with pain, tenderness, edema and incompetent right great saphenous vein and varicose veins, chronic venous insufficiency right leg secondary to venous incompetence Procedure Performed: 1. Ultrasound-guided microfoam chemical ablation with Varithena(r) 2. Intraoperative ultrasound guidance Physician: Annalise Freed M.D. Anesthesia: None Indications for Procedure: 62 year old female. Symptoms including lower pain, swelling and active venous stasis ulcerations despite conservative medical therapy including medical compression stockings, exercise and analgesics. Prior procedures include endovenous laser ablation and microfoam chemical ablation. Multiple incompetent varicosities of the right leg. Duplex scan showed reflux and enlarged diameters up to 9 mm. The patient underwent informed consent including management options where the complications of infection, bleeding, pain, and skin injury were discussed. Particular attention was spent discussing thrombus extension and deep vein thrombosis as well as the possibility of pulmonary embolus and treatment with oral or injectable blood thinners. Procedure: The patient walked to the procedure room. All applicable staff donned appropriate apparel. A procedure timeout was performed to confirm correct patient, correct extremity, correct procedure, and correct room set-up including presence of all applicable supplies, devices, and drugs. A duplex ultrasound, performed by myself confirmed the location and incompetence of varicose veins and their course marked on the skin together with the dilated tributaries. The extent of treatment of the vein and the associated varicosities was determined through ultrasound mapping. The patient was placed on the operating room table. The limb was prepped. The skin was punctured with a butterfly needle through the skin with the venous access needle and advanced under ultrasound guidance. The target limb was positioned at 45 degrees of elevation in relation to the torso. The Varithena(r) canister was previously activated and the canister was primed and purged as required in the instructions for use. The following injections were made: 7 mL aliquot of Varithena(r) was drawn into a sterile syringe. 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 8 mL aliquot of Varithena(r) was drawn into a sterile syringe. Injection into 9 mm varicose vein medial distal medial right thigh. Varithena(r) was slowly administered at 0.5-1.0 cc/second with close observation by ultrasound of its course in the injected veins. A total volume of 15 mL of Varithena(r) was used. During administration of Varithena(r), the patient was asked to dorsiflex the ankle to limit flow of Varithena(r) into perforating veins. Once appropriate spasm had been confirmed in the treated veins, the vascular catheter was removed from the leg and light pressure was applied over the puncture site for hemostasis The common femoral and deep superficial veins were then evaluated for flow and compressibility prior to dressing placement. The lower extremity was kept elevated at 45 degrees above the horizontal and cording material was applied over the saphenous segments and tributaries to allow for eccentric compression over the target vessels including the targeted saphenous vein(s). A multilayer dressing was applied consisting of foam pads, coban and thigh-high 20-30 mm Hg compression elastic support hose were placed on the patient. The leg was lowered only after compression had been applied and the patient was immediately ambulatory. The patient ambulated 10 minutes under supervision and was without apparent concerns at time of release Post-care instructions include advising patient to keep post-treatment bandages in place and dry for 48 hours, avoid extended periods of inactivity, avoid heavy exercise for one week, wear compression stockings on the treated leg continuously for two weeks, to walk daily for 10 minutes over the next month. The patient was instructed to take an anti-inflammatory medicine as needed and to follow up for color duplex scan of the GSV, the treated superficial varices, the adjacent (more content not included)... Normal [facility] VC CONSULT FOLLOWUPon 2021 VC CONSULT FOLLOWUP Patient: PEDRO HERNANDEZ Exam Date: 11/02/2022 : 1960 Gender:F Ordering : DR ANNALISE FREED M.D. Admission #: [id number] Family : Order #: [id number] CLICK HERE TO VIEW EXAM RADIOLOGY REPORT PROCEDURE: VEIN CENTER CONSULTATION FOLLOWUP VEIN CENTER - OFFICE VISIT FOLLOW UP COMPARISON: VC CONSULT FOLLOWUP, 10/26/2022. VC CONSULT FOLLOWUP, 10/12/2022. PROGRESS NOTES: The patient reports mild pain following micro foam chemical ablation of the left leg. The patient has worn her compression stocking. The patient has taken ibuprofen daily. The patient has followed our recommendations to walk 20-30 minutes once or twice per day since the procedure. Physical exam demonstrates a 6 cm area of erythema medial distal thigh consistent with thrombophlebitis. Extensive thrombosed varicose veins are observed with moderate hemosiderin staining. There has been healing of the patient's active venous stasis ulceration along the left medial ankle. The patient was counseled on use of mineral sun screen to reduce permanent hemosiderin staining. She was offered laser treatments cost for hemosiderin staining which would not begin until 6 months post treatment Review of the ultrasound performed the same day demonstrates occlusive thrombus extending throughout the treated left leg veins. No deep vein thrombus. Incompetent right leg varicose veins. The patient expressed a desire to proceed with treatment of incompetent right leg varicose veins with micro foam chemical ablation. IMPRESSION: 1. Successful ablation of incompetent left leg varicose veins 2. Persistent incompetent right leg varicose veins PLAN: Micro foam chemical ablation right leg Nurse notes, history and physical were reviewed and confirmed, see attached forms. The nurse was present throughout the physical exam and consultation Dictated by: Annalise Freed MD on 11/02/2022 at 10:17 Approved by: Annalise Freed MD on 11/02/2022 at 10:28 [facility] VC EXT VENOUS LT LIMITEDon 1 01-03-2022 VC EXT VENOUS LT LIMITED Patient: NORBERTO HERNANDEZ Exam Date: 11/02/2022 : 1960 Gender:F Ordering : DR ANNALISE FREED M.D. Admission #: [id number] Family : Order #: [id number] CLICK HERE TO VIEW EXAM RADIOLOGY REPORT PROCEDURE: VEIN CENTER EXTREMITY VENOUS LEFT LIMITED COMPARISON: VC EXT VENOUS LT LIMITED, 10/26/2022. VC EXT VENOUS LT LIMITED, 10/12/2022. INDICATIONS: Phlebitis and thrombophlebitis of superficial veins of left lower extremity I80.02 TECHNIQUE: Lower extremity mann scale and Duplex Doppler evaluation of the deep venous system from the inguinal ligament through the calf veins. FINDINGS: REGION: Left lower extremity. THROMBI: Negative for DVT. Chemically induced thrombus in multiple varicose veins mid to distal thigh and distal to proximal lower leg medial. COMPRESSIBILITY: Non-compressible segments corresponding to thrombus. FLOW: Absent flow corresponding to thrombus OTHER: No significant varicose veins remain. *Exam performed in accordance with [facility] practice [facility]- Peripheral venous ultrasound, February 22, 2010. CONCLUSION: Post ablation occlusion of treated incompetent left leg varicose veins Dictated by: Annalise Freed MD on 11/02/2022 at 10:04 Approved by: Annalise Freed MD on 11/02/2022 at 10:05 [facility] VC INJ FOAM SCLERO W US MLTI on 10-28-2022 VC INJ FOAM SCLERO W US MLTI Patient: NROBERTO HERNANDEZ Exam Date: 10/28/2022 : 1960 Gender:F Ordering : DR ANNALISE FREED M.D. Admission #: [id number] Family : Order #: [id number] CLICK HERE TO VIEW EXAM RADIOLOGY REPORT PROCEDURE: VEIN CENTER INJECTION FOAM SCLEROSING SOLUTION WITH ULTRASOUND MULTIPLE VEINS COMPARISON: VC INJ FOAM SCLERO W US MLTI, 10/19/2022. Pre-operative Diagnosis: CEAP class C4a venous insufficiency with pain, tenderness, edema and incompetent branch saphenous vein, chronic venous insufficiency left leg secondary to venous incompetence Post-operative Diagnosis: CEAP class C4a venous insufficiency with pain, tenderness, edema and incompetent branch saphenous vein, chronic venous insufficiency left leg secondary to venous incompetence Procedure Performed: 1. Ultrasound-guided microfoam chemical ablation with Varithena(r) 2. Intraoperative ultrasound guidance Physician: J Carlos Schwartz M.D. Anesthesia: None. Indications for Procedure: 62 year old female. Symptoms including lower extremity pain, swelling, dilated bulging veins, ulceration for many years despite conservative medical therapy including medical compression stockings, exercise and analgesics. Prior procedures include: Endovenous laser ablation and microfoam chemical ablation. Multiple incompetent varicosities of the left leg. Duplex scan showed reflux and enlarged diameters up to 10 mm. The patient has undergone informed consent including management options where the complications of infection, bleeding, pain, and skin injury were discussed. Particular attention was spent discussing thrombus extension and deep vein thrombosis as well as the possibility of pulmonary embolus and treatment with oral or injectable blood thinners. Procedure: The patient walked to the procedure room. All applicable staff donned appropriate apparel. A procedure timeout was performed to confirm correct patient, correct extremity, correct procedure, and correct room set-up including presence of all applicable supplies, devices, and drugs. A duplex ultrasound, performed by myself confirmed the location and incompetence of branch saphenous varicosities and their course was marked on the skin together with the dilated tributaries. The extent of treatment of the veins and the associated varicosities was determined through ultrasound mapping. The skin was prepped and then punctured with a butterfly needle and advanced under ultrasound guidance. The Varithena(r) canister was activated and the canister was primed and purged as required in the instructions for use. Varithena(r) was drawn into a sterile syringe. Varithena(r) was slowly administered at 0.5-1.0 cc/second with close observation by ultrasound of its course in the vessels. Total volume utilized was: 15 mL (7 mL within a 5 mm incompetent varicosity of the left mid medial lower leg; 8 mL within a 10 mm incompetent varicosity of the left distal medial upper leg). Following administration of Varithena(r), the leg was elevated and the patient was asked to repeatedly dorsiflex the ankle to limit flow of Varithena(r) into perforating veins. Once appropriate spasm had been confirmed in the treated veins, the vascular catheter was removed from the leg and light pressure was applied over the puncture site for hemostasis The common femoral and deep superficial veins were then evaluated for flow and compressibility prior to dressing placement. The lower extremity was kept elevated at 45 degrees above the horizontal and cording material was applied over the saphenous segments and tributaries to allow for eccentric compression over the target vessels including the targeted saphenous vein(s). A multilayer dressing was applied consisting of foam pads, coban and thigh-high 20-30 mm Hg compression elastic support hose were placed on the patient. The leg was lowered only after compression had been applied and the patient was immediately ambulatory. The patient ambulated 10 minutes under supervision and was without apparent concerns at time of release Post-care instructions include advising patient to keep post-treatment bandages in place and dry for 48 hours, avoid extended periods of inactivity, avoid heavy exercise for one week, wear compression stockings on the treated leg continuously for two weeks, to walk daily for 10 minutes over the next month. The patient was instructed to take an anti-inflammatory medicine as needed and to follow up for color duplex scan of the Saphenous veins, the treated branch saphenous varicosities, the adjacent deep veins, and additional treatment within 7 days. PERSONNEL: Benito Bowser R.N. Dictated by: J Carlos Schwartz M.D. on 10/28/2022 at 13:17 Approved by: J Carlos Schwartz M.D. on 10/28/2022 at 13:22 [facility] VC CONSULT FOLLOWUPon 2021 VC CONSULT FOLLOWUP Patient: PEDRO HERNANDEZ Exam Date: 10/26/2022 : 1960 Gender:F Ordering : DR ANNALISE FREED M.D. Admission #: [id number] Family : Order #: [id number] CLICK HERE TO VIEW EXAM RADIOLOGY REPORT PROCEDURE: VEIN CENTER CONSULTATION FOLLOWUP VEIN CENTER - OFFICE VISIT FOLLOW UP COMPARISON: VC CONSULT FOLLOWUP, 10/12/2022. PROGRESS NOTES: The patient reports improvement and significant wound healing involving the left leg. There has been interval reduction in varicosities. The patient has followed our recommendations to walk 20-30 minutes once or twice per day since the procedure. Physical exam demonstrates decrease in superficial varicosities and notable improved appearance of distal left lower extremity wound. Persistent dilated varicosities are identified along the left leg. Review of the ultrasound performed the same day demonstrates occlusive thrombus extending throughout the treated vein, see separate report, consistent with a successful ablation. No thrombus extending into or beyond the saphenofemoral junction. The patient expressed a desire to proceed with treatment of remaining incompetent branch saphenous varicosities. The patient was informed that treatment was a process and would require several procedures/sessions. IMPRESSION: 1. Successful ablation of the treated branch saphenous varicosities. 2. Persistent dilated, incompetent veins and lower extremity symptoms PLAN: Microfoam chemical ablation of remaining left lower extremity incompetent varicosities followed by right lower extremity incompetent varicosities. Nurse notes, history and physical were reviewed and confirmed, see attached forms. The nurse was present throughout the physical exam and consultation Dictated by: J Carlos Schwartz M.D. on 10/26/2022 at 10:00 Approved by: J Carlos Schwartz M.D. on 10/26/2022 at 10:33 [facility] VC EXT VENOUS LT LIMITEDon 1 12-26-2021 VC EXT VENOUS LT LIMITED Patient: NORBERTO HERNANDEZ Exam Date: 10/26/2022 : 1960 Gender:F Ordering : DR ANNALISE FREED M.D. Admission #: [id number] Family : Order #: [id number] CLICK HERE TO VIEW EXAM RADIOLOGY REPORT PROCEDURE: VEIN CENTER EXTREMITY VENOUS LEFT LIMITED COMPARISON: VC EXT VENOUS LT LIMITED, 10/12/2022. INDICATIONS: Phlebitis of superficial veins of lower extremity I80.02 TECHNIQUE: Lower extremity mann scale and Duplex Doppler evaluation of the deep venous system from the inguinal ligament through the calf veins. FINDINGS: REGION: Left lower extremity. THROMBI: Negative for DVT. Varithena induced thrombus visualized at mid/lat calf and dist/lat calf. COMPRESSIBILITY: Non-compressible segments. FLOW: Areas of no flow. OTHER: Patent varicose vein dist/med thigh 16.3mm with 2.2s reflux. Patent varicose vein dist/med thigh 8.9mm with 1.3s reflux. CONCLUSION: 1. Successful post ablation occlusion of treated branch saphenous varicosities within the left lower extremity. Dictated by: J Carlos Schwartz M.D. on 10/26/2022 at 09:48 Approved by: J Carlos Schwartz M.D. on 10/26/2022 at 09:59 [facility] VC INJ FOAM SCLERO W US MLTI on 10-19-2022 VC INJ FOAM SCLERO W US MLTI Patient: NORBERTO HERNANDEZ Exam Date: 10/19/2022 : 1960 Gender:F Ordering : DR ANNALISE FREED M.D. Admission #: [id number] Family : Order #: [id number] CLICK HERE TO VIEW EXAM RADIOLOGY REPORT PROCEDURE: VEIN CENTER INJECTION FOAM SCLEROSING SOLUTION WITH ULTRASOUND MULTIPLE VEINS COMPARISON: VC INJ FOAM SCLERO W US MLTI, 10/09/2022. Pre-operative Diagnosis: CEAP class C4a venous insufficiency with pain, tenderness, edema and incompetent left great saphenous vein and branch saphenous tributaries/varicose veins, chronic venous insufficiency left leg secondary to venous incompetence Post-operative Diagnosis: CEAP class C4a venous insufficiency with pain, tenderness, edema and incompetent left great saphenous vein and branch saphenous tributaries/varicose veins, chronic venous insufficiency left leg secondary to venous incompetence Procedure Performed: 1. Ultrasound-guided microfoam chemical ablation with Varithena(r) 2. Intraoperative ultrasound guidance Physician: Annalise Freed M.D. Anesthesia: None Indications for Procedure: 62-year-old female presents with lower extremity pain swelling varicose veins with active venous stasis ulceration. The patient failed conservative medical therapy including medical compression stockings, exercise and analgesics. Prior procedures include intravenous laser ablation and micro foam chemical ablation Multiple incompetent varicosities of the left leg. Duplex scan showed reflux and enlarged diameters up to 9 mm. The patient underwent informed consent including management options where the complications of infection, bleeding, pain, and skin injury were discussed. Particular attention was spent discussing thrombus extension and deep vein thrombosis as well as the possibility of pulmonary embolus and treatment with oral or injectable blood thinners. Procedure: The patient walked to the procedure room. All applicable staff donned appropriate apparel. A procedure timeout was performed to confirm correct patient, correct extremity, correct procedure, and correct room set-up including presence of all applicable supplies, devices, and drugs. A duplex ultrasound, performed by myself confirmed the location and incompetence of left leg varicose veins and their course marked on the skin together with the dilated tributaries. The extent of treatment of the vein and the associated varicosities was determined through ultrasound mapping. The patient was placed on the operating room table. The limb was prepped. The skin was punctured with a butterfly needle through the skin with the venous access needle and advanced under ultrasound guidance. The target limb was positioned at 45 degrees of elevation in relation to the torso utilizing a foam pad. The Varithena(r) canister was previously activated and the canister was primed and purged as required in the instructions for use. Following injections were made: 8 mL aliquot of Varithena(r) was drawn into a sterile syringe. Injection into a 6 mm varicose vein lateral mid left lower leg. 7 mL aliquot of Varithena(r) was drawn into a sterile syringe. Injection into a 9 mm varicose vein distal medial left thigh. Varithena(r) was slowly administered at 0.5-1.0 cc/second with close observation by ultrasound of its course in the injected veins. A total volume of 15 mL of Varithena(r) was used. During administration of Varithena(r), the patient was asked to dorsiflex the ankle to limit flow of Varithena(r) into perforating veins. Once appropriate spasm had been confirmed in the treated veins, the vascular catheter was removed from the leg and light pressure was applied over the puncture site for hemostasis The common femoral and deep superficial veins were then evaluated for flow and compressibility prior to dressing placement. The lower extremity was kept elevated at 45 degrees above the horizontal and cording material was applied over the saphenous segments and tributaries to allow for eccentric compression over the target vessels including the targeted saphenous vein(s). A multilayer dressing was applied consisting of foam pads, coban and thigh-high 20-30 mm Hg compression elastic support hose were placed on the patient. The leg was lowered only after compression had been applied and the patient was immediately ambulatory. The patient ambulated 10 minutes under supervision and was without apparent concerns at time of release Post-care instructions include advising patient to keep post-treatment bandages in place and dry for 48 hours, avoid extended periods of inactivity, avoid heavy exercise for one week, wear compression stockings on the treated leg continuously for two weeks, to walk daily for 10 minutes over the next month. The patient was instructed to take an anti-inflammatory medicine as needed and to follow up for color duplex scan of the GSV, the treated superficial varic (more content not included)... Normal [facility] VC CONSULT FOLLOWUPon 2021 VC CONSULT FOLLOWUP Patient: PEDRO HERNANDEZ Exam Date: 10/12/2022 : 1960 Gender:F Ordering : DR ANNALISE FREED M.D. Admission #: [id number] Family : Order #: [id number] CLICK HERE TO VIEW EXAM RADIOLOGY REPORT PROCEDURE: VEIN CENTER CONSULTATION FOLLOWUP VEIN CENTER - OFFICE VISIT FOLLOW UP COMPARISON: VC CONSULT FOLLOWUP, 09/30/2022. VC CONSULT FOLLOWUP, 09/09/2022. PROGRESS NOTES: The patient reports no significant pain following micro foam chemical ablation the left leg. The patient did not require oral analgesics. The patient did wear her compression stocking. The patient has followed our recommendations to walk 20-30 minutes once or twice per day since the procedure. The patient reports improvement in her initial presenting symptoms. Physical exam demonstrates multiple thrombosed left leg varicose veins. Multiple residual varicose veins are observed. Some areas of mild hemosiderin staining. Improvement in active ulceration of the left medial ankle. Review of the ultrasound performed the same day demonstrates occlusive thrombus extending throughout the treated veins. Multiple incompetent varicose veins remain. The patient expressed a desire to proceed with treatment of residual incompetent varicose veins with micro foam chemical ablation. IMPRESSION: 1. Successful ablation of incompetent left leg varicose veins 2. Persistent bilateral incompetent varicose veins PLAN: Micro foam chemical ablation left leg Nurse notes, history and physical were reviewed and confirmed, see attached forms. The nurse was present throughout the physical exam and consultation Dictated by: Annalise Freed MD on 10/12/2022 at 09:14 Approved by: Annalise Freed MD on 10/12/2022 at 09:15 [facility] VC EXT VENOUS LT LIMITEDon 1 12-12-2021 VC EXT VENOUS LT LIMITED Patient: NORBERTO EHRNANDEZ Exam Date: 10/12/2022 : 1960 Gender:F Ordering : DR ANNALISE FREED M.D. Admission #: [id number] Family : Order #: [id number] CLICK HERE TO VIEW EXAM RADIOLOGY REPORT PROCEDURE: VEIN CENTER EXTREMITY VENOUS LEFT LIMITED COMPARISON: VC EXT VENOUS LT LIMITED, 09/30/2022. INDICATIONS: Phlebitis and thrombophlebitis of superficial veins of left lower extremity I80.02 TECHNIQUE: Lower extremity mann scale and Duplex Doppler evaluation of the deep venous system from the inguinal ligament through the calf veins. FINDINGS: REGION: Left lower extremity. THROMBI: Negative for DVT. Chemically induced thrombus in distal GSV and varicose vein distal-mid lower leg. Partial thrombus in medial distal varicose vein in thigh. COMPRESSIBILITY: Non-compressible segments. FLOW: Areas of no flow. OTHER: Multiple patent varicose veins remain in left leg. *Exam performed in accordance with [facility] practice guidelines- Peripheral venous ultrasound, February 22, 2010. CONCLUSION: Post ablation occlusion of treated left leg varicose veins with multiple residual incompetent varicose veins Dictated by: Annalise Freed MD on 10/12/2022 at 09:13 Approved by: Annalise Freed MD on 10/12/2022 at 09:14 [facility] VC INJ FOAM SCLERO W US MLTI on 10-09-2022 VC INJ FOAM SCLERO W US MLTI Patient: NORBERTO HERNANDEZ Exam Date: 10/09/2022 : 1960 Gender:F Ordering : DR ANNALISE FREED M.D. Admission #: [id number] Family : Order #: [id number] CLICK HERE TO VIEW EXAM RADIOLOGY REPORT PROCEDURE: VEIN CENTER INJECTION FOAM SCLEROSING SOLUTION WITH ULTRASOUND MULTIPLE VEINS COMPARISON: VC COMP CONSULTATION, 05/22/2022. Pre-operative Diagnosis: CEAP class C4a venous insufficiency with pain, tenderness, edema and incompetent left great saphenous vein and tributary/varicose veins, chronic venous insufficiency left leg secondary to venous incompetence Post-operative Diagnosis: CEAP class C4a venous insufficiency with pain, tenderness, edema and incompetent left great saphenous vein and tributary/varicose veins, chronic venous insufficiency left leg secondary to venous incompetence Procedure Performed: 1. Ultrasound-guided microfoam chemical ablation with Varithena(r) 2. Intraoperative ultrasound guidance Physician: Annalise Freed M.D. Anesthesia: None Indications for Procedure: 62-year-old female who presents with lower extremity 20 year history of varicose veins with swelling skin discoloration and active ulceration. The patient failed conservative medical therapy including medical compression stockings, exercise and analgesics. Prior procedures include intravenous laser ablation. Multiple incompetent varicosities of the left leg. Duplex scan showed reflux and enlarged diameters up to 10 mm. The patient underwent informed consent including management options where the complications of infection, bleeding, pain, and skin injury were discussed. Particular attention was spent discussing thrombus extension and deep vein thrombosis as well as the possibility of pulmonary embolus and treatment with oral or injectable blood thinners. Procedure: The patient walked to the procedure room. All applicable staff donned appropriate apparel. A procedure timeout was performed to confirm correct patient, correct extremity, correct procedure, and correct room set-up including presence of all applicable supplies, devices, and drugs. A duplex ultrasound, performed by myself confirmed the location and incompetence of left leg varicose veins and their course marked on the skin together with the dilated tributaries. The extent of treatment of the vein and the associated varicosities was determined through ultrasound mapping. The patient was placed on the operating room table. The limb was prepped. The skin was punctured with a butterfly needle through the skin with the venous access needle and advanced under ultrasound guidance. The target limb was positioned at 45 degrees of elevation in relation to the torso utilizing a foam pad. The Varithena(r) canister was previously activated and the canister was primed and purged as required in the instructions for use. Following injections were made: 7 mL aliquot of Varithena(r) was drawn into a sterile syringe. Injection into a patent incompetent distal 5 mm left great saphenous vein at the level of the ankle. Flow into the patent portion of the great saphenous vein and out incompetent tributaries. 7 mL aliquot of Varithena(r) was drawn into a sterile syringe. Injection into a 10 mm varicosity distal medial left thigh. The outflow tract at the level of the saphenofemoral junction was occluded until dissipation of the foam was observed. Varithena(r) was slowly administered at 0.5-1.0 cc/second with close observation by ultrasound of its course in the GSV and varicose veins. A total volume of 14 mL of Varithena(r) was used. During administration of Varithena(r), the patient was asked to dorsiflex the ankle to limit flow of Varithena(r) into perforating veins. Once appropriate spasm had been confirmed in the treated veins, the vascular catheter was removed from the leg and light pressure was applied over the puncture site for hemostasis The common femoral and deep superficial veins were then evaluated for flow and compressibility prior to dressing placement. The lower extremity was kept elevated at 45 degrees above the horizontal and cording material was applied over the saphenous segments and tributaries to allow for eccentric compression over the target vessels including the targeted saphenous vein(s). A multilayer dressing was applied consisting of foam pads, coban and thigh-high 20-30 mm Hg compression elastic support hose were placed on the patient. The leg was lowered only after compression had been applied and the patient was immediately ambulatory. The patient ambulated 10 minutes under supervision and was without apparent concerns at time of release Post-care instructions include advising patient to keep post-treatment bandages in place and dry for 48 hours, avoid extended periods of inactivity, avoid heavy exercise for one week, wear compression stockings on the treated leg continuously for two weeks, to (more content not included)... Normal [facility] VC CONSULT FOLLOWUPon 2021 VC CONSULT FOLLOWUP Patient: PEDRO HERNANDEZ Exam Date: 09/30/2022 : 1960 Gender:F Ordering : DR ANNALISE FREED M.D. Admission #: [id number] Family : Order #: [id number] CLICK HERE TO VIEW EXAM RADIOLOGY REPORT PROCEDURE: VEIN CENTER CONSULTATION FOLLOWUP VEIN CENTER - OFFICE VISIT FOLLOW UP COMPARISON: VC CONSULT FOLLOWUP, 09/09/2022. PROGRESS NOTES: The patient reports no significant pain of the left leg following intravenous laser ablation. The patient did not require oral analgesics. The patient did wear her compression stocking. The patient did complain of new pain at the insertion site of the intravenous laser ablation catheter on the right leg at the level of the ankle. The patient gavin to this area well shaving and subsequently developed some erythema and minimal swelling and was concerned about infection . The patient applied antibiotic ointment and this improved in the last 24 hours. The patient has followed our recommendations to walk 20-30 minutes once or twice per day since the procedure. Physical exam of the left leg demonstrates some hemosiderin staining. Thrombosed portion of the left anterior accessory saphenous vein can be palpated. The insertion site of the catheter on the right distal leg demonstrates a 2 cm area of erythema in the skin feels slightly raised in this area. No definite abscess. Review of the ultrasound performed the same day demonstrates nonocclusive thrombus in portions of the left anterior accessory saphenous vein. No deep vein thrombus.. The patient expressed a desire to proceed with treatment of incompetent varicose veins with micro foam chemical ablation. IMPRESSION: 1. Partially successful ablation of the left anterior accessory saphenous vein, I expect continued thrombus formation as the procedure was performed with a perforating kit due to tortuosity 2. Persistent incompetent varicose veins PLAN: 1. Micro foam chemical ablation left leg 2. Apply antibiotic ointment to affected area right lower leg 3 times per day 3. Keflex 500 milligram t.i.d. For 14 days Nurse notes, history and physical were reviewed and confirmed, see attached forms. The nurse was present throughout the physical exam and consultation Dictated by: Annalise Freed MD on 09/30/2022 at 12:30 Approved by: Annalise Freed MD on 09/30/2022 at 12:34 Normal [facility] VC EXT VENOUS LT LIMITEDon 1 11-30-2021 VC EXT VENOUS LT LIMITED Patient: NORBERTO HERNANDEZ Exam Date: 09/30/2022 : 1960 Gender:F Ordering : DR ANNALISE FREED M.D. Admission #: [id number] Family : Order #: [id number] CLICK HERE TO VIEW EXAM RADIOLOGY REPORT PROCEDURE: VEIN CENTER EXTREMITY VENOUS LEFT LIMITED COMPARISON: None. INDICATIONS: Phlebitis and thrombophlebitis of superficial veins of left lower extremity I80.02 TECHNIQUE: Lower extremity mann scale and Duplex Doppler evaluation of the deep venous system from the inguinal ligament through the calf veins. FINDINGS: REGION: Left lower extremity. THROMBI: Negative for DVT. One area of heat induced partial thrombus in left AASV proximal thigh. COMPRESSIBILITY: Partial compressibility of segments. FLOW: Decreased flow *Exam performed in accordance with [facility] practice guidelines- Peripheral venous ultrasound, February 22, 2010. CONCLUSION: Thrombus partially occluding the treated left anterior accessory saphenous vein Dictated by: Annalise Freed MD on 09/30/2022 at 11:54 Approved by: Annalise Freed MD on 09/30/2022 at 11:55 Normal [facility] ENDOVENOUS ABL PERFORATIN G LTon 09-25-2022 VC ENDOVENOUS ABL PERFORATING LT Patient: NORBERTO HERNANDEZ Exam Date: 09/25/2022 : 1960 Gender:F Ordering : DR ANNALISE FREED M.D. Admission #: [id number] Family : Order #: [id number] CLICK HERE TO VIEW EXAM RADIOLOGY REPORT PROCEDURE: VEIN CENTER ENDOVENOUS ABLATION FOR VEIN LEFT ANTERIOR ACCESSORY SAPHENOUS VEIN COMPARISON: None. INDICATIONS: Phlebitis of superficial veins of lower extremity I83.813 OPERATIVE REPORT: Diagnosis: Superficial venous reflux, incompetent perforating veins Procedure: Endovenous laser ablation of the left survey project manager(s) Procedure: The patient was positioned supine on the table and the leg was prepped and draped to allow for visualization during venous access. A sterile cover was draped over a 16 mhz ultrasound probe. Venous mapping was performed prior to the procedure noting location and size of vessel(s). Marked tortuosity of the anterior accessory saphenous vein precluded use of the standard fiber. Treatment area 1: Proximal left anterior accessory saphenous measuring up to 20 mm in diameter. Using a 30 gauge needle the entry site was anesthetized with 1 cc of 1% buffered lidocaine. Access was gained percutaneously, with a 21-gauge needle, into the survey project manager vein under ultrasound guidance. The needle was advanced into the desired position and the pre-measured 400-micron fiber was then inserted into the needle and locked in place. The position of the fiber was imaged with ultrasound guidance. 25 cubic cm of lidocaine tumescence fluid injected. A final positioning check of the laser fiber tip was performed. The laser was activated by means of a foot-pedal and the fiber and needle were withdrawn together in accordance to the desired joules per treatment area/spot weld. 2 areas/spot welds were performed, and the total number of joules delivered was 121 The total time of energy delivery was 15 seconds. A duplex ultrasound revealed compressibility and flow of the deep system immediately after the procedure. Hemostasis of the access site was achieved. Treatment area 2: Proximal to mid left anterior accessory saphenous measuring up to 16 mm in diameter. Using a 30 gauge needle the entry site was anesthetized with 1 cc of 1% buffered lidocaine. Access was gained percutaneously, with a 21-gauge needle, into the survey project manager vein under ultrasound guidance. The needle was advanced into the desired position and the pre-measured 400-micron fiber was then inserted into the needle and locked in place. The position of the fiber was imaged with ultrasound guidance. 25 cubic cm of lidocaine tumescence fluid injected. A final positioning check of the laser fiber tip was performed. The laser was activated by means of a foot-pedal and the fiber and needle were withdrawn together in accordance to the desired joules per treatment area/spot weld. 4 areas/spot welds were performed, and the total number of joules delivered was 253. The total time of energy delivery was 32 seconds. A duplex ultrasound revealed compressibility and flow of the deep system immediately after the procedure. Hemostasis of the access site was achieved Treatment area 3: Mid left anterior accessory saphenous measuring up to 15 mm in diameter. Using a 30 gauge needle the entry site was anesthetized with 1 cc of 1% buffered lidocaine. Access was gained percutaneously, with a 21-gauge needle, into the survey project manager vein under ultrasound guidance. The needle was advanced into the desired position and the pre-measured 400-micron fiber was then inserted into the needle and locked in place. The position of the fiber was imaged with ultrasound guidance. 25 cubic cm of lidocaine tumescence fluid injected. A final positioning check of the laser fiber tip was performed. The laser was activated by means of a foot-pedal and the fiber and needle were withdrawn together in accordance to the desired joules per treatment area/spot weld. 3 areas/spot welds were performed, and the total number of joules delivered was 187. The total time of energy delivery was 23 seconds. A duplex ultrasound revealed compressibility and flow of the deep system immediately after the procedure. Hemostasis of the access site was achievedHemostasis of the access site was achieved and dressed. A 20-30 mm compression stocking over coban was placed on the treated leg. Post-Op instructions were given, and a follow-up appointment was made. CONCLUSION: 1. Technically successful endovenous laser ablation of the left anterior accessory saphenous vein in 3 separate locations Dictated by: Annalise Freed MD on 09/25/2022 at 10:10 Approved by: Annalise Freed MD on 09/25/2022 at 10:14 Normal [facility] VC CONSULT FOLLOWUPon 2021 VC CONSULT FOLLOWUP Patient: PEDRO HERNANDEZ MorenaRoxie Exam Date: 09/09/2022 : 1960 Gender:F Ordering : DR ANNALISE FREED M.D. Admission #: [id number] Family : Order #: [id number] CLICK HERE TO VIEW EXAM RADIOLOGY REPORT PROCEDURE: VEIN CENTER CONSULTATION FOLLOWUP VEIN CENTER - OFFICE VISIT FOLLOW UP COMPARISON: None. PROGRESS NOTES: The patient reports mild discomfort of the right leg following intravenous laser ablation. The patient took oral pain medication, ibuprofen, for 2 days. The patient did wear her compression stocking. The patient has followed our recommendations to walk 20-30 minutes once or twice per day since the procedure. Physical exam demonstrates 2 areas of bruising in the medial proximal to mid right thigh measuring 6 and 10 cm in diameter likely related to tumescent injection. Thrombosed right great saphenous vein can be partially palpated. No areas of erythema or warmth to suggest cellulitis or thrombophlebitis. No active ulceration. Residual varicose veins are observed Review of the ultrasound performed the same day demonstrates occlusive thrombus extending throughout the treated right great saphenous vein with heat induced thrombus 4.2 cm from the saphenofemoral junction. The patient expressed a desire to proceed with treatment of incompetent left anterior accessory saphenous vein with intravenous laser ablation. IMPRESSION: 1. Successful ablation of the right great saphenous vein 2. Persistent incompetent left anterior accessory saphenous vein PLAN: Intravenous laser ablation left anterior accessory saphenous vein Nurse notes, history and physical were reviewed and confirmed, see attached forms. The nurse was present throughout the physical exam and consultation Dictated by: Annalise Freed MD on 09/09/2022 at 10:48 Approved by: Annalise Freed MD on 09/09/2022 at 10:50 Normal [facility] VC EXT VENOUS RT LIMITEDon 1 VC EXT VENOUS RT LIMITED Patient: NORBERTO HERNANDEZ Exam Date: 09/09/2022 : 1960 Gender:F Ordering : DR ANNALISE FREED M.D. Admission #: [id number] Family : Order #: [id number] CLICK HERE TO VIEW EXAM RADIOLOGY REPORT PROCEDURE: VEIN CENTER EXTREMITY VENOUS RIGHT LIMITED COMPARISON: None. INDICATIONS: Phlebitis and thrombophlebitis of superficial veins of right lower extremity I80.01 TECHNIQUE: Lower extremity mann scale and Duplex Doppler evaluation of the deep venous system from the inguinal ligament through the calf veins. FINDINGS: REGION: Right lower extremity. THROMBI: Negative for DVT. Heat induced thrombus in right GSV 4.2 cm from SFJ and extends to the anterior foot. COMPRESSIBILITY: Non-compressible segments. FLOW: Areas of no flow. OTHER: Multiple large varicose veins remain. *Exam performed in accordance with [facility] practice guidelines- Peripheral venous ultrasound, February 22, 2010. CONCLUSION: Post ablation occlusion of the right great saphenous vein with heat induced thrombus 4.2 cm from the saphenofemoral junction Dictated by: Annalise Freed MD on 09/09/2022 at 10:01 Approved by: Annalise Freed MD on 09/09/2022 at 10:02 Normal [facility] VC ENDOVENOUS ABL 1ST V RTon 09-04-2022 VC ENDOVENOUS ABL 1ST V RT Patient: NORBERTO HERNANDEZ. Exam Date: 09/04/2022 : 1960 Gender:F Ordering : DR ANNALISE FREED M.D. Admission #: [id number] Family : Order #: [id number] CLICK HERE TO VIEW EXAM RADIOLOGY REPORT PROCEDURE: VEIN CENTER ENDOVENOUS ABLATION FIRST VEIN RIGHT GREAT SAPHENOUS VEIN COMPARISON: None. INDICATIONS: Pain co-occurrent and due to varicose veins of bilateral legs I83.813 OPERATIVE REPORT: The risks and benefits of the procedure had been previously discussed, and were rediscussed at length. Informed written consent was obtained by me and Benito dinh. Time out procedure was performed. The right lower extremity was prepared and draped in the usual sterile fashion to allow knee flexion in the sterile field. Duplex ultrasound probe was draped in a sterile cover, sterile transmission gel was used. Venous mapping was performed with the areas of dilation and large tributaries marked. The total length was 61 cm from the entry 3 cm above the medial malleolus to 3 cm below the saphenofemoral junction. The diameter of the greater saphenous vein ranged from 5-11 mm. A 30 gauge needle and 1% buffered lidocaine was used to anesthetize the entry site. A 4 mm incision was made with a scalpel and the saphenous vein was entered percutaneously under direct ultrasound guidance with a micropuncture set, a single stick was successful in gaining access. A micro-guide wire was inserted and the needle removed. A micro-set including a dilator was inserted over the microwire and the needle and dilator were removed. A 0.018 guide wire was inserted through the micro-set and threaded through the saphenous vein to the saphenofemoral junction. The dilator was removed and an introducer sheath was inserted over the wire until the end of the sheath entered the saphenofemoral junction. The dilator and wire were removed and the 600 micron fiber was introduced and placed and positioned so that it extended beyond the sheath and was 3 cm peripheral to the saphenofemoral femoral junction. Final position of the fiber was determined by ultrasound guidance and duplex imaging. Tumescent anesthetic was delivered by ultrasound guidance. 250 cc of fluid was delivered along the entire course of the saphenous vein. The solution consisted of 500 cc of normal saline with 20mL of 1% lidocaine and 10 mL of sodium bicarbonate. A final positioning check was made. The energy source was turned on by means of the foot pedal and the fiber and sheath were withdrawn. The total number of Joules delivered was 3367. The laser was active for 421 seconds under continuous pulse, average laser use of 8 J. Laser start time 9:56 a.m. September 04, 2022. Laser stop time 10:03 a.m. September 04, 2022. A duplex ultrasound revealed compressibility and flow at the saphenofemoral junction immediately after the procedure. Hemostasis at the access site was achieved. The skin incision of the saphenous vein was closed with a 4 x 4. A compression stocking was applied. Postop instructions were given. A follow up appointment was recommended and scheduled. The patient tolerated the procedure well and was discharged in good condition. CONCLUSION: 1. Technically successful endovenous laser ablation of the right great saphenous vein. Dictated by: Annalise Freed MD on 09/04/2022 at 10:21 Approved by: Annalise Freed MD on 09/04/2022 at 10:24 Normal [facility] RSVon 08-14-2022 RSV AG Negative Normal NEGATIVE [facility] Comment on above: Performed By: #### R SV ####[facility] [id number] [place], [place] [id number]. Edy Link MG MAMM SCREEN 3D GRGE CADon 05-29-2022 MG MAMM SCREEN 3D GREG CAD Patient: NORBERTO HERNANDEZ Exam Date: 05/29/2022 : 1960 Gender:F Ordering : DR RADHA BATES . Admission #: [id number] Family : Order #: [id number] CLICK HERE TO VIEW EXAM RADIOLOGY REPORT PROCEDURE: MAMMOGRAM SCREENING 3D BILATERAL CAD COMPARISON: MG MAMM SCREEN 3D GREG CAD, 03/26/2021. MG MAMM SCREEN GREG W CAD, 08/16/2019. INDICATIONS: Screening mammography Calculator Name NCI Breast Cancer Risk Assessment Tool 5 Year Breast Cancer Risk 1.80% Lifetime Breast Cancer Risk 8.50% Personal Breast Cancer No Personal Ovarian Cancer No Treatments None Family Cancers Grandmother-maternal with uterine cancer at age 60. LOCATION: [facility] BREAST COMPOSITION: Heterogeneously dense,which may obscure small masses. FINDINGS: DIAGNOSTIC CATEGORY 2--BENIGN FINDING. NO CHANGE FROM COMPARISON. Scattered benign-appearing nodules are present. Scattered benign-appearing calcifications are present. Scattered benign-appearing lymph nodes are present. RIGHT BREAST: No significant suspicious finding. LEFT BREAST: No significant suspicious finding. RECOMMENDATIONS: ROUTINE MAMMOGRAM AND CLINICAL EVALUATION IN 12 MONTHS. PLEASE NOTE: A NORMAL MAMMOGRAM DOES NOT EXCLUDE THE POSSIBILITY OF BREAST CANCER. A CLINICALLY SUSPICIOUS PALPABLE LUMP SHOULD BE BIOPSIED. Dictated by: Annalise Freed MD on 05/29/2022 at 08:49 Approved by: Annalise Freed MD on 05/29/2022 at 08:51 Normal [facility] XR DEXA BONE DENSITYon 05-29 XR DEXA BONE DENSITY DEXA Bone Density S gumarody CLINICAL: Evaluate bone mineral density. Postmenopausal COMPARISON: None FINDINGS: The bone density study was assessed by dual-energy x-ray absorptiometry with the [employer] scanner. The test results are expressed in T-Score, which is used for diagnosis for osteoporosis, and reflects the standard deviations from the mean peak bone mineral density in young adults. Additional information regarding the Z-Score reflects the standard deviations from the mean peak bone mineral density for age- and gender- matched subject. Lumbar Spine (L1-L4): BMD (gm/cm2): 0.886 T-Score: -2.6 Left Hip: BMD (gm/cm2): 0.913 T-Score: 0.8 Left Femoral Neck: BMD (gm/cm2): 0.815 T-Score: -1.6 Right Hip: BMD (gm/cm2): O.866 T-Score: -1.1 Right Femoral Neck: BMD (gm/cm2): 0.796 T-Score: 1.7 IMPRESSION: 1. Lumbar spine indicates osteoporosis. 2. Hip indicates osteopenia. 3. Left femoral neck indicates osteopenia. REFERENCE: In children, postmenopausal women and males under age 50 not at increased risk for fractures, only Z-Scores, not T-Scores, are used to indicate fracture risk. A Z-Score above -2.0 is defined as within the expected range for age and Z-Score at or less than -2.0 is below the expected range for age. A Z-Score below the expected range for age in a patient with recent fractures and/or chronic corticosteroid treatment is consistent with a diagnosis of osteoporosis. In postmenopausal women and males over 50, comparison of the measured bone mineral density with the average value in young normal subjects (the T-Score) has been found to be useful in assessing fracture risk. Fracture risk approximately doubles for each 1.0 standard deviation (SD) that the individual's hip or spine bone mineral density is below the average value of young normal subjects. The World health Organization (WHO) has provided the following definitions: 1. Normal: T-Score within one standard deviation of young adult mean value (T-Score greater than -1.0). 2. Osteopenia (low bone mass): T-Score more than one standard deviation below the young adult mean but less than 2.5 standard deviations below the young adult mean (T-Score between -1.0 and -2.5). 3. Osteoporosis: T-Score more than 2.5 standard deviations below the young adult mean (T-Score less than -2.5). 4. Sever Osteoporosis (established osteoporosis): T-Score more than 2.5 standard deviations below young adult and one or more fragility fracture (T-Score less than -2.5 + fragility fractures). Electronically authenticated by: ANNALISE HERNANDEZ Date: 2022-05-29 08:47 Normal [facility] VC COMP CONSULTATIONon 05-22 VC COMP CONSULTATION Patient: BECKY HERNANDEZ Exam Date: 05/22/2022 : 1960 Gender:F Ordering : DR ANNALISE FREED M.D. Admission #: [id number] Family : Order #: [id number] CLICK HERE TO VIEW EXAM RADIOLOGY REPORT PROCEDURE: VC VEIN CENTER CONSULTATION VEIN CENTER - OFFICE VISIT INITIAL COMPARISON: None. PROGRESS NOTES: [age] year old female who presents with a 20 year history of bulging veins, leg pain and swelling, recent skin discoloration and ulcer. The patient's left leg symptoms are worse than the right. There has been a progression of symptoms over time. 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 The patient describes an improvement with rest and elevation. The patient denies any signs and symptoms to suggest arterial ischemia. The patient describes a family history varicose veins in her mother. The patient has drinking and smoking history of occasional alcohol consumption; no tobacco use of. Patient has a past medical history significant for hypertension, hyperlipidemia, mild asthma. The patient denies a history of deep venous thrombus or pulmonary embolus. See separate history and physical for medication list. Prior stripping of left great saphenous vein. Current use of compression stockings. After review of nurse notes, history and physical exam I discussed at length the pathophysiology of venous hypertension and possible treatments, therapies and strategies available. We discussed at length the importance of elevating the lower extremities above the level of the heart, increased physical activity and compression stocking use. Ultrasound venous reflux study performed today was discussed at length with the patient. The report demonstrates markedly and competent right great saphenous vein with numerous branch saphenous varicosities and incompetent perforators. Markedly incompetent left anterior accessory saphenous vein with numerous incompetent branch saphenous varicosities.. PHYSICAL EXAM: The right leg demonstrates multiple varicosities, numerous spider veins, no ulceration, minimal edema, mild skin discoloration. The left leg demonstrates multiple large varicosities, numerous spider veins, small ankle ulceration, minimal edema, mild skin discoloration. Both thighs, legs and feet were symmetrically warm to the touch. Good posterior tibial and dorsalis pedis pulses were present bilaterally. IMPRESSION: 1. Bilateral lower extremity venous insufficiency 2. Bilateral lower extremity varicose veins 3. Mild bilateral lower extremity subcutaneous edema 4. No known flow significant arterial disease 5. CEAP: C4a, EC, AP, [place] PLAN: 1. Continued use of compression stockings 2. Elevated legs and increased physical activity symptomatic relief 3. Endovenous laser ablation of right great saphenous vein and left anterior accessory saphenous vein. 4. Microfoam chemical ablation of the numerous incompetent branch saphenous varicosities bilaterally. 5. Sclerotherapy of bilateral spider veins. Nurse notes, history and physical were reviewed and confirmed, see attached forms. The nurse was present throughout the physical exam and consultation Dictated by: J Carlos Schwartz M.D. on 05/22/2022 at 15:20 Approved by: J Carlos Schwartz M.D. on 05/22/2022 at 15:27 Normal [facility] VC VENOUS REFLUX GREG LMTon 0 05-22-2022 VC VENOUS REFLUX GREG LMT Patient: NORBERTO HERNANDEZ Exam Date: 05/22/2022 : 1960 Gender:F Ordering : DR ANNALISE FREED M.D. Admission #: [id number] Family : Order #: [id number] CLICK HERE TO VIEW EXAM RADIOLOGY REPORT PROCEDURE: VEIN CENTER ULTRASOUND VENOUS REFLUX BILATERAL LIMTED COMPARISON: None. INDICATIONS: Pain co-occurrent and due to varicose veins of bilateral legs i83.813 TECHNIQUE: Duplex imaging of the lower extremity to assess the deep and superficial venous system for the presence of deep or superficial venous incompetence and to document the location and severity of disease. The study includes evaluation of the great saphenous vein (GSV), anterior accessory saphenous vein (AASV) and small saphenous vein (SSV). Patient scanned in reverse Trendelenburg and standing. FINDINGS: RIGHT LOWER EXTREMITY: Saphenofemoral Junction Reflux: Yes 8.6mm 3.3 sec GSV: Diam (mm) Reflux/ Time (sec) Proximal Thigh 6.6 Yes 2.3 Mid Thigh 11.4 Yes 3.5 Distal Thigh 9.2 Yes 3.3 Prox Calf 5.1 Yes 1.4 Mid Calf 4.5 Yes 0.8 Saphenopopliteal Junction Reflux: 3.5mm Yes 0.4 SSV: Proximal Calf 2.4 No Mid Calf 3.0 Yes 0.4 AASV: Not present Proximal Thigh Mid Thigh Distal Thigh Thrombi: No acute or chronic thrombus visualized Compressibility: Normal Flow: Normal Preforator: Dist/med calf 3.4mm with 0.8s reflux; dist/med calf 3.3mm with 1.4s reflux; mid/med calf 3.5mm, 0s Tech Note: Incompetent SFJ and competent SPJ. GSV has multiple varicosities arising off it. Patent varicose vein comes off of GSV and travels medially down rt leg at dist/med calf it measures 4.9mm with 2.8s reflux, mid/med calf 8.4mm with 1.8s reflux, prox/med calf 8.3mm with 2.8s reflux, and joins GSV measuring 7.1mm with 3.6s reflux. Patent varicose vein dist/med thigh 5.8mm with 2.0s reflux. Patent varicose vein mid med thigh that travels anteriorly 6.5mm with 3.0s reflux. LEFT LOWER EXTREMITY: Saphenofemoral Junction Reflux: Yes 10.4 mm 4.0 sec GSV: Diam (mm) Reflux/Time (sec) Proximal Thigh 3.2 No Mid Thigh Distal Thigh Prox Calf Mid Calf 3.4 No Saphenopopliteal Junction Relux: 6.8 mm No SSV: Proximal Calf 2.7 No Mid Calf 3.2 No AASV: Proximal Thigh 18.3 Yes 4.0 Mid Thigh 16.0 Yes 3.8 Distal Thigh 10.7 Yes 4.0 Thrombi: No acute or chronic thrombus visualized Compressibility: Normal Flow: Normal Fermenter Champagne: Dist/med calf 3.9mm with 0s reflux; mid/med calf 4.6mm with 0s reflux. Tech Note: Incompetent SFJ and competent SPJ. GSV has been stripped, from prox thigh to mid calf. AASV is tortuous throughout entire course from groin to mid calf. AASV at prox calf 7.7mm with 3.6s reflux. AASV at mid calf 5.4mm with 3.1s reflux. Patent varicose vein mid/med thigh off AASV 6.3cm with 1.3s reflux. Patent varicose vein prox/med thigh 5.9mm with 0s reflux. CONCLUSION: 1. Markedly incompetent right great saphenous vein with incompetent perforators and numerous incompetent branch saphenous varicosities within the right leg. 2. Markedly incompetent left anterior accessory saphenous vein. Multiple incompetent branch saphenous varicosities within left leg. Prior stripping of left great saphenous vein. 3. Consultation for venous ablation is recommended. Dictated by: J Carlos Schwartz M.D. on 05/22/2022 at 14:48 Approved by: J Carlos Schwartz M.D. on 05/22/2022 at 14:54 Normal [facility] Coding Summary.on 02-25-2021 Coding Summary. CODING DATE: [facility] STATUS: Home (Routine DC) PAYOR: [facility] [place] [facility] DESCRIPTION 5523 Level 3 Imaging without Contrast ADMIT DX: REASON FOR VISIT DX: I73.9 Peripheral vascular disease, unspecified FINAL DX: PRINCIPAL: I73.9 Peripheral vascular disease, unspecified SECONDARY: I83.11 Varicose veins of right lower extremity with inflammation I83.812 Varicose veins of left lower extremity with pain PYMT PROC APC STAT DESCRIPTION DOCTOR NAME DATE NOTE: The code number assigned matches the documented diagnosis and / or procedure in the patient's chart. However, the narrative phrase printed from the coding software may appear abbreviated, or result in slightly different terminology. Coded By: Renita Ureña CphT Date Saved: 02/25/2021 12:07 pm Normal [facility] LE Venous Duplex Insuffic iency Bilaton 02-17-2021 LE Venous Duplex Insufficiency Bilat Exam Date/Time: 02/14/2021 10:03 EDT Reason for Exam: varicose veins greg legs pre tx study;Vascular insufficiency Report IMPRESSION: RIGHT LEG-DEEP VEINS. NEGATIVE FOR DEEP VENOUS THROMBOSIS. REFLUX RIGHT COMMON FEMORAL VEIN. RIGHT LEG-SUPERFICIAL VEINS. GREATER SAPHENOUS VEIN POSITIVE FOR VALVULAR COMPETENCY. SMALL SAPHENOUS VEIN NEGATIVE FOR VALVULAR INCOMPETENCY. LEFT LEG-DEEP VEINS. NEGATIVE FOR DEEP VENOUS THROMBOSIS. REFLUX LEFT COMMON FEMORAL VEIN. LEFT LEG SUPERFICIAL VEINS. GREATER SAPHENOUS VEIN PREVIOUS VEIN STRIPPING. SMALL SAPHENOUS VEIN NEGATIVE FOR VALVULAR INCOMPETENCY. CLINICAL HISTORY: Vascular insufficiency, varicose veins greg legs pre tx study. COMMENT: On the right, the greater saphenous vein, common femoral vein, femoral vein, deep femoral vein, and popliteal vein demonstrate spontaneous phasic venous flow with augmentation, competence, non-pulsatility, and compressibility every 2 cm. The posterior tibial and peroneal right deep calf veins compress. On the left, the common femoral vein, femoral vein, deep femoral vein, and popliteal vein demonstrate spontaneous phasic venous flow with augmentation, competence, non-pulsatility, and compressibility every 2 cm. The posterior tibial and peroneal left deep calf veins compress. There are bilateral venous varicosities. The right and left greater saphenous and small saphenous vein measurements are detailed below. FINAL REPORT Dictated: 02/17/2021 11:32 am Eric Valenzuela M.D. Signed (Electronic Signature): 02/17/2021 11:32 am Signed by: Eric Valenzuela M.D. Transcribed by: CORI Technologist: ESTEFANY, Technical Comments Patient Position Reverse Trendelenburg CFV Reflux (sec): Sec 1.8 DFV Reflux (sec): None. FV Prox Reflux (sec): None. FV Mid Reflux (sec): None. FV Dist Reflux (sec): None. Pop V Reflux (sec): None. Right Greater Saphenous: Saphenofemoral Junction (at/near): Diameter 0.7 Technical Comments Depth: Intrafascial Reflux (sec): Sec 2.3 Prox thigh: Diameter 0.9 Depth: Intrafascial Reflux (sec): Sec 5.4 Mid thigh: Diameter 0.7 Depth: Intrafascial Reflux (sec): Sec 5.6 Distal thigh: Diameter 0.5 Depth: Intrafascial Reflux (sec): Sec 5.8 At Knee Diameter 0.5 Depth: Intrafascial Reflux (sec): Sec 5.6 Proximal lower leg: Diameter 0.5 Depth: Intrafascial Reflux (sec): Sec 5.1 Mid lower leg: Diameter 0.5 Depth: Intrafascial Reflux (sec): Sec 4.1 Right Small Saphenous: Connects to: Distal Thigh Junction/Proximal Calf Diameter 0.2 Depth: Intrafascial Reflux (sec): None. Mid calf: Diameter 0.3 Depth: Intrafascial Reflux (sec): None. Patient Position Reverse Trendelenburg CFV Reflux (sec): Sec 3.1 DFV Reflux (sec): None. FV Prox Reflux (sec): None. FV Mid Reflux (sec): None. FV Dist Reflux (sec): None. Pop V Reflux (sec): None. Left Greater Saphenous: Saphenofemoral Junction (at/near): Diameter previous stripping Left Small Saphenous: Connects to: Distal Thigh Junction/Proximal Calf Diameter 0.4 Depth: Intrafascial Reflux (sec): None. Mid calf: Diameter not visualized Normal [facility] Consent for Treatmenton 01-27 Consent for Treatment [id number] D:127 Normal [facility] RAD - Ultrasound Impressiono n 02-14-2021 RAD - Ultrasound Impression [id number] D:127 Normal [facility] Screenson 02-06-2021 Screens [id number] D:127 Normal [facility] Ambulatory Clinical Summaryo n 02-05-2021 Ambulatory Clinical Summary {[id number] Normal [facility] General Surgery Office/Clini c Noteon 02-05-2021 General Surgery Office/Clinic Note HPI Staff Est Varicose Vein patient , last seen for sclero 03/16/2016 . C/o venous ulcer left ankle pt had L/S LGSV and exc of mult vv left leg 10/2013 followed by 6 sclero sessions History of Present Illness Norberto comes in for a varicose vein checkup. She has a longstanding history of venous disease in both legs. She comes in today with a main complaint of a small eschar/ulceration of the left medial ankle. She has had this for about 2 weeks. It is very small but has not improved. She thinks maybe it rubs on her tetanus shoes while working out. She does wear her support stockings almost daily and every day that she works. 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 She does not smoke and does not have diabetes. She has had venous treatment including ligation and stripping of the greater saphenous vein on the left as well as phlebectomy in October 2013. She has also had sclerotherapy bilaterally with multiple sessions the last of which was in 2015. She has no history of DVT or phlebitis. She does not have fever or drainage from the wound. She does not have tenderness of the area per se. Review of Systems PHQ Score Initial Depression Screen Score: 0 ROS - Provider Constitutional: no fever, no sweats, no weight loss. Eyes: yes glasses, no blurred vision, no visual loss. ENMT: no dentures, no hoarseness, no swallowing difficulties, no hearing loss, no ear infection(s), no nose bleeds. Cardiovascular: normal blood pressure, no chest pain, regular heartbeat, no heart murmur. Respiratory: no shortness of breath, no cough, no asthma, no wheezing. Gastrointestinal: no nausea, no vomiting, no diarrhea, no constipation, no blood in stool, no change in bowel habits, no abdominal pain, no hepatitis. Genitourinary: no kidney stones, no urine infection, no dysuria. Musculoskeletal: no pain, no weakness. Skin: no changing moles, no rash, no skin lumps. Neurologic: no seizures, no epilepsy, no headache. Psychiatric: no emotional or psychiatric problem. Endocrine: no thyroid problems no diabetes Heme/Lymph: no bleeding problems, no anemia, no blood clots, no transfusions. Allergy/Immunologic: no swollen lymph nodes/glands, no IV drug abuse. Other: Additional ROS info: Except as noted in the above Review of Systems and in the History of Present Illness, all other systems have been reviewed and are negative or noncontributory. Physical Exam Vitals & Measurements T: 36.2 ?C (Oral) HR: 75(Peripheral) RR: 16 BP: 170/90 SpO2: 98% HT: 165.10 cm HT: 165.1 cm WT: 92.4 kg WT: 92.4 kg BMI: 33.9 General: Alert and oriented, no acute distress Eye: PERRLA. Extraocular movements are intact. HENT: Normocephalic. Normal hearing. Neck: Supple. Nontender. No lymphadenopathy. No carotid bruits. Respiratory: Lungs clear bilaterally. Nonlabored respirations. Breath sounds equal. Cardiovascular: Normal rate. Regular rhythm. No murmur. Vascular: See scanned vascular exam sheet and photographs. The patient has bulging varicose veins up to 1.5 cm. These are in the bilateral lower extremities. She has moderate to severe stasis dermatitis changes bilaterally with a small 2 mm eschar/ulcer of the left medial ankle. There is severe stasis dermatitis in this area but no evidence of cellulitis. Pedal pulses are intact bilaterally. There are also scattered reticular veins bilaterally. Musculoskeletal: Normal range of motion. Normal gait. Integumentary: Warm and dry. Neurologic: Alert and oriented. No focal deficits. Cognition and speech: Oriented. Speech clear and coherent. Functional cognition intact. Psychiatric: Cooperative. Appropriate mood and affect. Normal judgment. Assessment/Plan 1. Varicose veins of left lower extremity with inflammation, with ulcer of ankle limited to breakdown of skin (I83.223: Varicose veins of left lower extremity with both ulcer of ankle and inflammation) The physiology of veins and venous disease were fully discussed with the patient. Conservative treatment was recommended, which includes elevation of the lower extremities when possible, avoidance of prolonged standing, daily exercise, weight loss if indicated, and use of a prescription pressure gradient support stocking, not only to alleviate symptoms, but also to help prevent further formation of varicosities. I also recommend a bilateral venous insufficiency study. Based on the findings of that I will make recommendations. I expect EVLT of the right greater saphenous vein will be indicated based on physical exam and EVLT if possible based on the study on the left versus phlebectomy. 2. Varicose veins of right lower extremity with inflammation (I83.11: Varicose veins of right lower extremity with inflammation) As above. [place] [facility] [place]ous Duplex Insufficiency Bilat Follow-up With When Contact Information Vaishali ESCOBEDO MD Additional Instructions: [facility] GREG STUDY CALL RESULTS HOSE RX GIVEN TO PT Problem List/Past Medical History Ongoing Palpitation Varicose vein Historical No qualifying data Procedure/Surgical History left vein stripping (11/24/2013), Biopsy of breast, section, Hysterectomy. Medications Premarin 0.625 mg Tab, 0.625 mg= 1 tab(s), Oral, Daily, Not taking protandim, Oral, Daily Allergies sulfa drugs (Rash, Nausea) Social History Alcohol - Denies Alcohol Use, 02/05/2021 Substance Abuse - Denies Substance Abuse, 02/05/2021 Tobacco - Denies Tobacco Use, 02/05/2021 Family History Aneurysm: Mother. COPD: Father. Normal [facility] Comment on above: Result Comment: Elec tronically Signed By: FANNY FUENTES, Vaishali De La Cruz\Date and Time Signed: 02/05/21 12:06 EST Retail - Clinical Noteon Retail - Clinical Note [id number] D:127 Normal [facility] Vital Signs Date Time Vital Sign Value Performing Clinician Ron delgado 08-05-2022 08:36-0400 Body height 165.1 cm DO Jayy Ball Work Phone: [facility] 08-05-2022 08:36-0400 Body mass index (BMI) [Ratio] 29.9 kg/m2 DO Jayy Ball Work Phone: [facility] 08-05-2022 08:36-0400 Body weight 81.64 kg DO Jayy Ball Work Phone: [facility] 08-05-2022 08:10-0400 Body temperature 97.9 [degF] DO Jayy Ball Work Phone: [facility] 08-05-2022 08:10-0400 Diastolic blood pressure 90 mm[Hg] DO Jayy Ball Work Phone: [facility] 08-05-2022 08:10-0400 Heart rate 68 /min DO Jayy Ball Work Phone: [facility] 08-05-2022 08:10-0400 Respiratory rate 20 /min DO Jayy Ball Work Phone: [facility] 08-05-2022 08:10-0400 Systolic blood pressure 150 mm[Hg] DO Jayy Ball Work Phone: [facility] Encounters Encounter Date Encounter Type Care Provider Facility Start: 01-31-2024 End: 01-31-2024 ambulatory RADHA BATES Not Available Start: 01-25-2023 End: 01-25-[address] RADHA BATES . Facility:[facility] Start: 11-27-2022 End: 11-28-[address] ANNALISE FREED Facility:[facility] Start: 11-26-2022 End: 11-27-[address] ANNALISE FREED Facility:[facility] Start: 11-25-2022 End: 11-26-[address] ANNALISE FREED Facility:[facility] Start: 11-24-2022 End: 11-25-[address] ANNALISE FREED Facility:[facility] Start: 11-19-2022 End: 11-20-[address] ANNALISE FREED Facility:[facility] Start: 11-16-2022 End: 11-17-[address] ANNALISE FREED Facility:[facility] Start: 11-13-2022 End: 11-14-[address] ANNALISE FREED Facility:[facility] Start: 11-12-2022 End: 11-13-[address] ANNALISE FREED Facility:[facility] Start: 11-09-2022 End: 11-10-[address] ANNALISE FREED Facility:[facility] Start: 11-06-2022 End: 11-07-[address] ANNALISE FREED Facility:[facility] Start: 11-02-2022 End: 11-03-[address] ANNALISE FREED Facility:[facility] Start: 10-28-2022 End: 10-29-[address] ANNALISE FREED Facility:[facility] Start: 10-26-2022 End: 10-27-2022 ambulatory RADHA BOOGIE Facility:[facility] Start: 10-26-2022 End: 10-27-[address] ANNALISE FREED Facility:[facility] Start: 10-19-2022 End: 10-20-[address] ANNALISE FREED Facility:[facility] Start: 10-12-2022 End: 10-13-[address] ANNALISE FREED Facility:[facility] Start: 10-09-2022 End: 10-10-[address] ANNALISE FREED Facility:[facility] Start: 09-30-2022 End: 10-01-[address] ANNALSIE FREED Facility:[facility] Start: 09-28-2022 End: 09-29-2022 ambulatory RADHA BOOGIE Facility:[facility] Start: 09-25-2022 End: 09-26-[address] ANNALISE FREED Facility:[facility] Start: 09-09-2022 End: 09-10-[address] ANNALISE FREED Facility:[facility] Start: 09-04-2022 End: 09-05-[address] ANNALISE FREED Facility:[facility] Start: 08-31-2022 End: 09-01-2022 [facility] Start: 08-14-2022 End: 08-14-[address] JAYY CORDOBA Facility:[facility] Start: 08-10-2022 End: 08-11-2022 ambulatory RADHA Jazmine [facility] Facility:[facility] Start: 08-05-2022 End: 08-06-2022 ambulatory Nadege Yeboah Facility:[facility] Start: 08-05-2022 End: 08-05-2022 ambulatory DO Jayy Cordoba Work Phone: [facility] Work Phone: Start: 08-05-2022 End: 08-05-2022 Discharged Recurring DO Jayy Cordoba Work Phone: [facility] Start: 07-13-2022 End: 07-14-2022 ambulatory RADHA Lucero [facility] Facility:[facility] Start: 06-12-2022 End: 06-13-2022 ambulatory RADHA Lucero [facility] Facility:[facility] Start: 05-29-2022 End: 05-30-[address] RADHA BATES . Facility:[facility] Start: 05-22-2022 End: 05-23-[address] ANNALISE FREED Facility:[facility] Start: 05-11-2022 End: 05-12-2022 ambulatory RADHA Jazmine [facility] Facility:[facility] Payers Date Payer Category Payer Self-pay 1960 Unknown [id number] 2.16.84 0.1.059726.3.579.2.59 1960 Unknown [id number] 0.1.814182.3.579.2.593 1960 Unknown [id number] 2..84 0.1.482606.3.579.2.593 1961 Unknown [id number] 2.16.84 0.1.443692.3.579.2.593 1960 Unknown [id number] 2.16.84 0.1.708676.3.579.2.593 1961 Unknown [id number] 2.16.84 0.1.317938.3.579.2.593 1961 Unknown [id number] 2.16.84 0.1.180391.3.579.2.593 1961 Unknown [id number] 2.16.84 0.1.106513.3.579.2.593 1961 Unknown [id number] 2.16.84 0.1.761072.3.579.2.593 1961 Unknown [id number] 2.16.84 0.1.115836.3.579.2.593 1961 Unknown [id number] 2.16.84 0.1.604791.3.579.2.593 1961 Unknown [id number] 2.16.84 0.1.464360.3.579.2.593 1961 Unknown [id number] 2.16.84 0.1.226897.3.579.2.593 1961 Unknown [id number] 2.16.84 0.1.601142.3.579.2.593 1961 Unknown [id number] 2.16.84 0.1.949848.3.579.2.593 1961 Unknown [id number] 2.16.84 0.1.757032.3.579.2.593 1961 Unknown [id number] 2.16.84 0.1.440670.3.579.2.593 1961 Unknown [id number] 2.16.84 0.1.449061.3.579.2.593 1961 Unknown [id number] 2.16.84 0.1.023865.3.579.2.593 1961 Unknown [id number] 2.16.84 0.1.002565.3.579.2.593 1961 Unknown [id number] 2.16.84 0.1.723188.3.579.2.593 1961 Unknown [id number] 2.16.84 0.1.259145.3.579.2.593 1961 Unknown [id number] 2.16.84 0.1.625228.3.579.2.593 1961 Unknown [id number] 2.16.84 0.1.685963.3.579.2.593 1961 Unknown [id number] 2.16.84 0.1.392630.3.579.2.593 1961 Unknown [id number] 2.16.84 0.1.211353.3.579.2.593 1961 Unknown [id number] 2.16.84 0.1.038546.3.579.2.593 1961 Unknown [id number] 2.16.84 0.1.393934.3.579.2.593 1961 Unknown [id number] 2.16.84 0.1.540773.3.579.2.593 1961 Unknown [id number] 2.16.84 0.1.738222.3.579.2.593 1961 Unknown [id number] 2.16.84 0.1.834566.3.579.2.593 1961 Unknown [id number] 2.16.84 0.1.579923.3.579.2.593 1961 Unknown [id number] 2.16.84 0.1.325132.3.579.2.593 1961 Unknown [id number] 2.16.84 0.1.937491.3.579.2.1259 1959 Unknown [id number] Unknown [id number] 2.16.8 40.1.525701.3.579.2.531 Unknown [id number] 2.16.8 40.1.136199.3.579.2.531 Social History Date Type Detail Facility Start: 08-05-2022 Tobacco smoking stat us NHIS Never smoked tobacco (finding) [facility] Start: 1960 Sex Assigned At Female F [facility] Progress note 08-05-2022 Note Date & Type Note Facility 08-05-2022 Progress note Note Date/Time August 05, 2022 8:36am [facility] [address] [place] [address] Wound Center Provider Note Signed Patient: Norberto Hernandez MR#: [id number] : 1960 Acct:[id number] Age/Sex: 62 / F Copies to: DO Nadege Cooper APRN~ HPI Date of Visit Date of Visit: Date of Service: 08/05/2022 Time of Service: 08:27 Narrative HPI: 08/05/22 Norberto is a 62 year old female presenting to [facility] wound care program for an initial visit for eval and treatment of a left ankle area ulcer that doesappear d/t venous stasis disease. She has a long standing history with venous issues and did have surgery about 10 years ago. She was seen by [place] wound care and was referred to Dr. rFeed in vascular and she is scheduled for a procedure in August. Handouts were provided about low inflammation foods as well as horse chestnut seed extract to assist with inflammation. Norberto understands that compression and elevation will be of utmost importance with her healing. Collagen powder was ordered along with a bordered foam and coconut oil was suggested for the surrounding dermatitis. Healing will be dependent on fixing the root cause of the venous problem as well as doing dressings as ordered, elevating and compressing, losing excess weight and controlling/treating any infection. I see no signs of infection today. Follow up within 2 weeks. Subjective Pain Left Medial Ankle: Pain Intensity: 0 Wound/Ulcer History When did wound start?: Left medial ankle May 2022 Mode of Arrival/ Pulley Maintainer: Personal vehicle Lives with:: Spouse Appetite Description: Within Normal Limits Who helps w/ dressing change?: Self Smoking Status: Never smoker PMFSH Vaccinated for COVID-19?: Yes Medical History (Updated 08/05/22 @ 08:30 by Nadege Yeboah APRN) Hyperlipidemia Hypertension Varicose vein of leg Wound of left ankle Social History Smoking Status: Never smoker Grafts History of Graft History of Graft?: No Exam Physical Exam Vital Signs: Temp Pulse Resp BP O2 Del Method 97.9 F 68 20 150/90 H Room Air 08/05/22 08:10 08/05/22 08:10 08/05/22 08:10 08/05/22 08:10 08/05/22 08:10 Const General: cooperative, healthy appearing, comfortable, no acute distress and wellgroomed Nutritional Appearance: overweight Orientation: alert, awake and oriented x3 Lower/Upper Extremity Exam Vascular Exam-Edema Left Lower Extremity: Edema Type: Non-Pitting Vascular Exam-Pulses Left Dorsalis Pedis: Pulse Assessment Method: Palpation Left Posterior Tibial: Pulse Assessment Method: Palpation Left Radial: Pulse Assessment Method: NIBP Objective Meds/Allergies Home Medications No known home meds 08/05/22 [History Confirmed 08/05/22] Allergies Sulfa (Sulfonamide Antibiotics) Allergy (Verified 08/05/22 08:34) Hives Wound/Ulcer Left Medial Ankle: Type: Venous Stasis Ulcer Thickness: Skin Breakdown Bed Appearance: Obion and Yellow Percent of Wound Bed Granulated/Red: 50 Percent of Devitalized: 50 Length (cm): 0.6 Width (cm): 0.4 Depth (cm): 0.1 CM Sq: 0.240 Surrounding Tissue Appearance: Hyperpigmented Surrounding Tissue Temp: Warm Drainage Amount: Small Drainage Description: Serosanguineous Drainage Odor: No Odor Results Height: 5 ft 5 in Weight: 81.647 kg Body Mass Index: 29.9 Assessment/Plan Assessment/Plan (1) Venous stasis ulcer of ankle: Qualifiers: Laterality: left Non-pressure ulcer stage: limited to breakdown of skin Code(s): I83.003 - 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; L97.309 - Non-pressure chronic ulcer of unspecified ankle with unspecified severity Status: Chronic (2) Venous stasis dermatitis of left lower extremity: Code(s): I87.2 - Venous insufficiency (chronic) (peripheral) Status: Chronic (3) Overweight: Code(s): E66.3 - Overweight Status: Chronic (4) Edema of left lower leg: Code(s): R60.0 - Localized edema Status: Chronic (5) Hemosiderin pigmentation of lower extremity due to varicose veins: Code(s): L81.8 - Other specified disorders of pigmentation; I83.899 - Varicose veins of unspecified lower extremity with other complications Status: Chronic Time spent with patient Time Spent With Patient (min): 15 Dictated By: Nadege Yeboah APRN DD/ 6 Signed By: <Electronically signed by TRINO Yeboah> 08/05/2236 [facility] Work Phone: Clinical Note 05-12-2022 Note Date & Type Note Facility 05-12-2022 Note PROCEDURE: XR ANKLE LT MIN 3 V HISTORY: Pain of left ankle joint ; medial ankle ulcer COMPARISON: None. FINDINGS: BONES:No fracture, acute abnormality, or significant arthropathy. SOFT TISSUES:No radiopaque foreign body. EFFUSION:None visible. OTHER: Negative. IMPRESSION: 1. No acute bone abnormality or findings to suggest osteomyelitis. 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 Overweight chronic Venous stasis dermatitis of left lower extremity chronic Venous stasis ulcer of ankle chronic [facility] Work Phone: Summary Purpose Family History No Family History Records Found Relationship Condition Age at Onset Recorded Date/T danika Not Specified Diabetes mellitus Unknown Varicose veins of lower extremity Unknown father Heart disease Unknown Hypertension Unknown Cerebrovascular accident (CVA) Unknown Advance Directives No Advanced Directives Records FoundNo Advanced Directives Records FoundNo Advanced Directives Records FoundNo Advanced Directives Records FoundNo Advanced Directives Records Found Chief Complaint and Reason for Visit Chief Complaint Open Wound Reason for Visit Edema of left lower leg Hemosiderin pigmentation of lower extremity due to varicose veins Overweight Venous stasis dermatitis of left lower extremity Venous stasis ulcer of ankle Additional Source Comments INFORMATION SOURCE (unrecogn ized section and content) DATE CREATED AUTHOR 02/26/2021 Aram Jones [facility] DATE CREATED AUTHOR AUTHOR'S ORGANIZ ATION 08/11/2022 [facility] DATE CREATED AUTHOR AUTHOR'S ORGANIZ ATION 10/04/2022 [facility] DATE CREATED AUTHOR AUTHOR'S ORGANIZ ATION 02/04/2023 [facility] DATE CREATED AUTHOR AUTHOR'S ORGANIZ ATION 01/31/2024 [facility] EPIC Care Teams (unrecognized sec tion and content) Team Status: Inactive Member Role Status Dates Nadege Yeboah APRN Attending Provider Active Jayy Cordoba DO Primary Care Provider Active Team Status: Active Member Role Status Dates Jayy Cordoba DO Primary Care Provider Active Goals (unrecognized section and content) Goals may be documented in a n alternate section FOR RECORDS PERTAINING TO PATIENTS WHO ARE OR HAVE BEEN ENROLLED IN A CHEMICAL DEPENDENCY/SUBSTANCEABUSE PROGRAM, SOME INFORMATION MAY BE OMITTED. This clinical summary was aggregated from multiple sources. Caution should be exercised in using it in the provision of clinical care. This summary normalizes information from multiple sources, and as a consequence, information in this document may materially change the coding, format and clinical context of patient data. In addition, data may be omitted in some cases. CLINICAL DECISIONS SHOULD BE BASED ON THE PRIMARY CLINICAL RECORDS. [employer] provides no warranty or guarantee of the accuracy or completeness of information in this document.
[2024-02-09 10:18] LABS: Basophils Percent Auto 0.4 % (0.2-2.0); Eosinophils Absolute Auto 0.1 10^3/uL (0.0-0.7); Eosinophils Percent Auto 1.7 % (0.9-7.0); Hematocrit 41.4 % (36.0-48.0); Hemoglobin 13.3 g/dL (12.0-16.0); Immature Granulocytes Abs Auto 0.01 10^3/uL (0.00-0.03); Immature Granulocytes Pct Auto 0.2 % (0.0-0.5); Lymphocytes Absolute Auto 1.6 10^3/uL (1.2-3.8); Lymphocytes Percent Auto 32.2 % (20.5-60.0); Mean Corpuscular HGB Conc 32.1 g/dL (29.9-35.2); Mean Corpuscular Hemoglobin 27.6 pg (26.7-34.0); Mean Corpuscular Volume 85.9 fL (81.0-99.0); Mean Platelet Volume 8.8 fL (9.5-13.5); Monocytes Absolute Auto 0.4 10^3/uL (0.3-0.8); Monocytes Percent Auto 8.7 % (1.7-12.0); Neutrophils Absolute Auto 2.7 10^3/uL (1.4-6.5); Neutrophils Percent Auto 56.8 % (43.0-75.0); Platelet Count 259 10^3/uL (150-450); Red Blood Count 4.82 10^6/uL (4.20-5.40); Red Cell Distribution Width 13.8 % (11.0-15.0); White Blood Count 4.8 10^3/uL (4.0-11.0)
[2024-02-09 11:01] LABS: Alanine Aminotransferase 31 U/L (14-59); Albumin Globulin Ratio 0.9; Albumin Level 3.6 g/dL (3.4-5.0); Alkaline Phosphatase 72 U/L (46-116); Anion Gap 11.5; Aspartate Amino Transferase 19 U/L (15-37); BUN Creatinine Ratio 26.6; Bilirubin Total 0.5 mg/dL (0.2-1.0); Calcium 9.1 mg/dL (8.5-10.1); Carbon Dioxide 30.6 mmol/L (21.0-32.0); Chloride 101 mmol/L (98-107); Chol HDL Ratio 4.3; Cholesterol 337 mg/dL (<=200); Estimated GFR (African America >60 (>=60); Estimated GFR (Non-African Ame >60 (>=60); Globulin 4.1 g/dL; Glucose 108 mg/dL (74-106); HDL Cholesterol 78 mg/dL (40-60); Potassium 4.1 mmol/L (3.5-5.1); Sodium 139 mmol/L (136-145); Thyroid Stimulating Hormone 2.855 uIU/mL (0.358-3.740); Total Protein 7.7 g/dL (6.4-8.2); Triglycerides 94 mg/dL (<=150); VLDL CHOLESTEROL 18.8 mg/dL
== END 2024-02-09 10:01 | disposition home or self-care (01) ==
LOC: LAB 10:00
PROVIDERS: PCP Internal Medicine; Visit Provider Internal Medicine
DX: Z00.00 Encounter for general adult medical examination without abnormal findings (principal)
CPT/HCPCS: 36415; 80053; 80061; 84443; 85025

== ENCOUNTER 2024-10-10 09:04 | Outpatient (OUT) | payer OTHER, SELFPAY ==
--- NOTE | 2024-10-10 09:07 | XR_ITS ---
The [address] [address] Patient Name: NORBERTO FREEMAN MRN: [id number] date: 1960 Sex: F Assigned Patient Location: [facility] Current Patient Location: Accession/Order Number: [id number] Exam Date: 10/10/2024 09:11 Report Date: 10/12/2024 07:00 At the request of: MYRTLE HUSTON Procedure: XR knee LT 4V PROCEDURE: XR knee LT 4V HISTORY: Left Anterior Knee Pain COMPARISON: None. FINDINGS: BONES:Mild lateral subluxation of the tibial plateau in relation to the femoral condyles and slight narrowing of the medial joint space. Small periarticular degenerative osteophytes. SOFT TISSUES:No visible soft tissue swelling. EFFUSION:None visible. OTHER: Negative. XR/XR knee LT 4V IMPRESSION: 1. Mild degenerative changes of the knee. 2. No acute abnormality. Electronically authenticated by: SASHA EMERSON Date: 10/12/2024 07:00
== END 2024-10-10 09:05 | disposition home or self-care (01) ==
LOC: RAD 09:04
PROVIDERS: PCP Internal Medicine; Visit Provider Internal Medicine
DX: M25.562 Pain in left knee (principal)
CPT/HCPCS: 73564

== ENCOUNTER 2024-10-16 08:36 | Outpatient (OUT) | payer OTHER, SELFPAY ==
--- NOTE | 2024-10-16 08:39 | MM_ITS ---
Patient Name: NORBERTO FREEMAN MR#: [id number] : 1960 Exam Date: 10/16/2024 Ordering Doctor: DR Madhu Carrillo . RADIOLOGY REPORT PROCEDURE: MM TOMOSYNTHESIS SCREENING BI COMPARISON: MM TOMOSYNTHESIS SCREENING BI, 09/01/2023. MG MAMM SCREEN 3D GREG CAD, 05/29/2022. MG MAMM SCREEN 3D GREG CAD, 03/26/2021. MG MAMM GREG SCRN W CAD DIG, 05/29/2013. INDICATIONS: Screening Calculator Name NCI Breast Cancer Risk Assessment Tool 5 Year Breast Cancer Risk 1.90% Lifetime Breast Cancer Risk 8.00% Personal Breast Cancer No Personal Ovarian Cancer No Treatments None Family Cancers Grandmother-maternal with uterine cancer at age ~60. LOCATION: [facility] BREAST COMPOSITION: The breasts are heterogeneously dense,which may obscure small masses. FINDINGS: DIAGNOSTIC CATEGORY 2--BENIGN FINDING: RIGHT BREAST: No significant suspicious finding. No significant change has occurred. LEFT BREAST: No significant suspicious finding. Scattered benign-appearing lymph nodes are present. No significant change has occurred. RECOMMENDATIONS: ROUTINE MAMMOGRAM AND CLINICAL EVALUATION IN 12 MONTHS. PLEASE NOTE: A NORMAL MAMMOGRAM DOES NOT EXCLUDE THE POSSIBILITY OF BREAST CANCER. A CLINICALLY SUSPICIOUS PALPABLE LUMP SHOULD BE BIOPSIED. Dictated by: J Carlos Schwartz M.D. on 10/16/2024 at 12:46 Approved by: J Carlos Schwartz M.D. on 10/16/2024 at 12:48
--- OUTSIDE RECORDS SUMMARY | 2024-10-16 08:54 | XMS_ITS | CCD ---
Author Organization [facility] Care Team Providers Care Co Op Name Role Phone Nadege Yeboah Attending Unavailable Obinna, Nadege Admitting Unavailable Adalid, Jayy Primary Care Unavailable TRINO Yeboah Attending Provider [phone] DO Jayy Cordoba Primary Care Provider RADHA [...] Unavailable WEST, DR ANNALISE Short Consulting Unavailable PAULO ., DR GARCIA Admitting Unavailable PAULO ., DR GARCIA Attending Unavailable BALL, DR IRAHETA Primary Care Unavailable WEST, DR ANNALISE Short Consulting Unavailable PAULO ., DR GARCIA Consulting Unavailable BROWN, ANNALISE Consulting Unavailable WEST, DR ANNALISE Short Admitting Unavailable WEST, DR ANNALISE Short Attending Unavailable BALL, DR IRAHETA Primary Care Unavailable ABDIAZIZ, DR ANNALISE Short Consulting Unavailable KI, DR J CARLOS Ruiz Consulting Unavailable WEST, DR ANNALISE Short Admlorna [...] IRAHETA Primary Care Unavailable WEST, DR ANNALISE Kim Unavailable ZIEBER, DR J CARLOS Ruiz Consulting [...] Primary Care Unavailable WEST, DR ANNALISE Short Admlorna Unavailable [...] Unavailable BALL, DR IRAHETA Primary Care Unavailable ZIEBER, DR J CARLOS Ruiz Consulting Unavailable HIGHLANDER, RADHA Lucero Consulting Unavailable HIGHLANDER, RADHA Lucero Admitting Unavailable HIGHLANDER, RADHA Lucero Attending Unavailable ADALID, DR IRAHETA Primary Care Unavailable PAULO ., DR GARCIA Admitting Unavailable PAULO ., DR GARCIA Attending Unavailable ADALID, DR IRAHETA Primary Care Unavailable PAULO ., DR GARCIA Consulting Unavailable GOLDEN, DR ANNALISE Short Admitting Unavailable GOLDEN, DR ANNALISE Short Attending Unavailable ADALID, DR IRAHETA Primary Care Unavailable GOLDEN, DR ANNALISE Short Consulting Unavailable ABDIAZIZ, DR ANNALISE Short Admitting Unavailable GOLDEN, DR ANNALISE Short Attending Unavailable ADALID, DR IRAHETA Primary Care Unavailable GOLDEN, DR ANNALISE Short Consulting Unavailable KI, DR J CARLOS Ruiz Consulting Unavailable GOLDEN, DR ANNALISE Short Admitting Unavailable WEST, DR ANNALISE Short Attending Unavailable ADALID, DR IRAHETA Primary Care Unavailable WEST, DR ANNALISE Short Consulting Unavailable RADHA BATES Attending Unavailable Allergies Allergy Classification Reported Allergen(s) Allergy Type Date of Onset Reaction(s) Facility (3 sources) Sulfonamides (Antibiotic) Drug allergy (disorder) 08-05-2022 [facility] Repository (1 source) Sulfonamides (Antibiotic) Drug allergy (disorder) 12-27-2013 [facility] Repository Medications Current Medications Medication Drug Class(es) Dates Sig (Normalized) Sig (Original) clobetasol propionate 0.0005 mg/mg topical ointment (1 source) Corticosteroid Start: 08-30-2024 Clobetasol Active 1 APPLIC TOPICAL Twice daily August 30, 2024 12:00am Problems Active Problems Problem Classification Problem Date [...] [Venous insufficiency (chronic) (peripheral)] 08-20-2022 Episodic Other diseases of veins and lymphatics (1 source) Venous insufficiency of leg; Translations: [Venous insufficiency (chronic) (peripheral)] 02-03-2024 Episodic Other nutritional; endocrine; and metabolic disorders (1 source) Obesity, unspecified; Translations: [OBESITY UNSPECIFIED] Onset: 2 Chronic Other nutritional; endocrine; and metabolic disorders (3 sources) Overweight; Translations: [Overweight] Onset: 2 08-05-2022 Episodic Other nutritional; endocrine; and metabolic disorders (2 sources) Overweight; Translations: [Overweight] 08-20-2022 Episodic Other screening for suspected conditions (not mental disorders or infectious disease) (8 sources) Encounter for screening for malignant neoplasm of cervix; Translations: [Encounter for screening mammogram for malignant neoplasm of breast] Onset: 2 Episodic Other skin disorders (3 sources) Other specified disorders of pigmentation; Translations: [Dyschromia, unspecified] Onset: 2 08-05-2022 Episodic Other skin disorders (2 sources) Hemosiderin pigmentation of lower limb due to varicose veins of lower limb; Translations: [Other specified disorders of pigmentation] 08-20-2022 Episodic Other skin disorders (4 sources) Corns and callosities; Translations: [CORNS AND CALLOSITIES] Onset: 2 Episodic Other skin disorders (1 source) Vesicular eczema; Translations: [Dyshidrosis [pompholyx]] 08-30-2024 Episodic Phlebitis; thrombophlebitis and thromboembolism (14 sources) Phlebitis and thrombophlebitis of superficial vessels of right lower extremity; Translations: [Phlebitis and thrombophlebitis of superficial vessels of left lower extremity] Onset: 2 Episodic Residual codes; unclassified (4 sources) Localized edema; Translations: [Edema] Onset: 2 08-05-2022 Episodic Residual codes; unclassified (1 source) Edema of left lower leg; Translations: [Localized edema] 08-20-2022 Episodic Sprains and strains (1 source) Strain of muscle of lower limb; Translations: [Strain of unspecified muscle(s) and tendon(s) at lower leg level, left leg, initial encounter] 08-30-2024 Episodic Unclassified (1 source) Varicose veins of [...] 30 to 65on 02-02-2023 . . Normal [facility] Comment on above: Result Comment: Perf ormed at: WB Performed By: #### [id number] ####[facility] [address] [place] [id number]. dEy Link Age Gdln ACOG Testing 30-65 Normal [facility] Comment on above: Performed By: #### 4 [id number] ####[facility] [address] [place] [id number]. Edy Link DIAGNOSIS: Comment Normal [facility] Comment on above: Result Comment: NEGA TIVE FOR INTRAEPITHELIAL LESION OR MALIGNANCY. Performed at: WB Performed By: #### 4 [id number] ####[facility] [address] [place], [place] [address]Dr. Edy Link HPV Aptima Negative Normal Negative [facility] Comment on above: Result Comment: This nucleic acid amplification test detects fourteen high-risk HPV types (16,18,31,33,35,39,45,51,52,56,58,59,66,68) without differentiation. Performed at: =G Performed By: #### [id number] ####[facility] [address] [place], [place] [address]Dr. Edy Link HPV Genotype Reflex Comment Normal [facility] Comment on above: Result Comment: Crit eria not met, HPV Genotype not performed. Performed at: WB Performed By: #### 4 [id number] ####[facility] [address] [place] [address]Dr. Edy Link Methodology: Comment Normal [facility] Comment on above: Result Comment: This liquid based ThinPrep(R) pap test was screened with the use of an image guided system. Performed at: WB Performed By: #### 4 [id number] ####[facility] [address] [place], [place] [address]Dr. Eyd Link Note: Comment Normal [facility] Comment on above: Result Comment: The Pap smear is a screening test designed to aid in the detection of premalignant and malignant conditions of the uterine cervix. It is not a diagnostic procedure and should not be used as the sole means of detecting cervical cancer. Both false-positive and false-negative reports do occur. . Performed at: WB Performed By: #### 4 [id number] ####[facility] [address] [place], [place] [address]To. Edy Link Performed by: Comment Normal [facility] [place] Comment on above: Result Comment: Maritza Zelaya, Senior Software Tester (ASCP) Performed at: WB Performed By: #### 4 [id number] ####[facility] [address] [place], [place] [address]YjRoxie Jacybeth Link Specimen adequacy: Comment Normal [facility] Comment on above: Result Comment: Sati sfactory for evaluation. Endocervical and/or squamous metaplastic cells (endocervical component) are present. Performed at: WB Performed By: #### 4 [id number] ####[facility] [address] [place], [place] [address]Lo. Jacybeth Link VC INJ SCL MARYBETH WATCH INSPECTOR VEINSon 1 VC INJ SCL MARYBETH WATCH INSPECTOR VEINS Patient: NORBERTO HERNANDEZ Exam Date: 11/27/2022 : 1960 Gender:F Ordering : DR ANNALISE FREED M.D. Admission #: [id number] Family : Order #: [id number] CLICK HERE TO VIEW EXAM RADIOLOGY REPORT PROCEDURE: VEIN CENTER INJECTION SCLEROSING SOLUTION MULTIPLE VEINS SAME COMPARISON: VC INJ SCL MARYBETH WATCH INSPECTOR VEINS, 11/26/2022. VC INJ SCL MARYBETH WATCH INSPECTOR VEINS, 11/24/2022. INDICATIONS: Pain co-occurrent and [...] Freed MD on 11/27/2022 at 10:34 Normal [facility] VC INJ SCL MARYBETH WATCH INSPECTOR VEINSon 1 VC INJ SCL MARYBETH WATCH INSPECTOR VEINS Patient: NORBERTO HERNANDEZ Exam Date: 11/26/2022 : 1960 Gender:F Ordering : DR ANNALISE FREED M.D. Admission #: [id number] Family : Order #: [id number] CLICK HERE TO VIEW EXAM RADIOLOGY REPORT PROCEDURE: VEIN CENTER INJECTION SCLEROSING SOLUTION MULTIPLE VEINS SAME COMPARISON: VC INJ SCL MARYBETH WATCH INSPECTOR VEINS, 11/24/2022. INDICATIONS: Pain co-occurrent and [...] Freed MD on 11/26/2022 at 10:04 Normal [facility] VC CONSULT FOLLOWUPon 2021 VC CONSULT FOLLOWUP Patient: PEDRO HERNANDEZ Exam Date: 11/25/2022 : 1960 Gender:F Ordering : DR ANNALISE FREED M.D. Admission #: [id number] Family : Order #: [id number] CLICK HERE TO VIEW EXAM RADIOLOGY REPORT [...] Freed MD on 11/25/2022 at 15:34 Normal [facility] VC EXT VENOUS RT LIMITEDon 1 01-26-2022 VC EXT VENOUS RT LIMITED Patient: NORBERTO HERNANDEZ. Exam Date: 11/25/2022 : 1960 Gender:F Ordering : DR ANNALISE FREED M.D. Admission #: [id number] Family : Order #: [id number] CLICK HERE TO VIEW EXAM RADIOLOGY REPORT [...] MD on 11/25/2022 at 09:51 Approved by: nAnalise Freed MD on 11/25/2022 at 09:51 Normal [facility] VC INJ SCL MARYBETH WATCH INSPECTOR VEINSon 1 01-25-2022 VC INJ SCL MARYBETH WATCH INSPECTOR VEINS Patient: NORBERTO HERNANDEZRoxie Exam Date: 11/24/2022 : 1960 Gender:F Ordering : DR ANNALISE FREED M.D. Admission #: [id number] Family : Order #: [id number] CLICK HERE TO VIEW EXAM RADIOLOGY REPORT [...] Annalise Freed MD on 11/24/2022 at 11:04 [facility] VC INJ FOAM SCLERO W US MLTI on 11-19-2022 VC INJ FOAM SCLERO W US MLTI Patient: NORBERTO HERNANDEZ Exam Date: 11/19/2022 : 1960 Gender:F Ordering : DR ANNALISE FREED M.D. Admission #: [id number] Family : Order #: [id number] CLICK HERE TO VIEW EXAM RADIOLOGY REPORT [...] M.D. on 11/19/2022 at 10:04 Normal [facility] VC CONSULT FOLLOWUPon 2021 VC CONSULT FOLLOWUP Patient: PEDRO HERNANDEZ Exam Date: 11/16/2022 : 1960 Gender:F Ordering : DR ANNALISE FREED M.D. Admission #: [id number] Family : Order #: [id number] CLICK HERE TO VIEW EXAM RADIOLOGY REPORT [...] Schwartz M.D. on 11/16/2022 at 11:21 Normal [facility] VC EXT VENOUS LT LIMITEDon 1 01-17-2022 VC EXT VENOUS LT LIMITED Patient: NORBERTO HERNANDEZRoxie Exam Date: 11/16/2022 : 1960 Gender:F Ordering : DR ANNALISE FREED M.D. Admission #: [id number] Family : Order #: [id number] CLICK HERE TO VIEW EXAM RADIOLOGY REPORT [...] Schwartz M.D. on 11/16/2022 at 11:17 Normal [facility] VC INJ FOAM SCLERO W US MLTI on 11-13-2022 VC INJ FOAM SCLERO W US MLTI Patient: NORBERTO HERNANDEZ Von Exam Date: 11/13/2022 : 1960 Gender:F Ordering : DR ANNALISE FREED M.D. Admission #: [id number] Family : Order #: [id number] CLICK HERE TO VIEW EXAM RADIOLOGY REPORT [...] pat (more content not included)... Normal [facility] VC CONSULT FOLLOWUPon 2021 VC CONSULT FOLLOWUP Patient: PEDRO HERNANDEZ Exam Date: 11/12/2022 : 1960 Gender:F Ordering : DR ANNALISE FREED M.D. Admission #: [id number] Family : Order #: [id number] CLICK HERE [...] Freed MD on 11/12/2022 at 12:40 Normal [facility] VC EXT VENOUS GREG LIMITEDon 11-12-2022 VC EXT VENOUS GREG LIMITED Patient: NORBERTO HERNANDEZ Exam Date: 11/12/2022 : 1960 Gender:F Ordering : DR ANNALISE FREED M.D. Admission #: [id number] Family : Order #: [id number] CLICK HERE TO VIEW EXAM RADIOLOGY REPORT [...] Freed MD on 11/12/2022 at 12:38 Normal [facility] VC INJ FOAM SCLERO W US MLTI on 11-09-2022 VC INJ FOAM SCLERO W US MLTI Patient: NORBERTO HERNANDEZ Exam Date: 11/09/2022 : 1960 Gender:F Ordering : DR ANNALISE FREED M.D. Admission #: [id number] Family : Order #: [id number] CLICK HERE TO VIEW EXAM RADIOLOGY REPORT [...] o (more content not included)... Normal [facility] VC INJ FOAM SCLERO W US MLTI on 11-06-2022 VC INJ FOAM SCLERO W US MLTI Patient: NORBERTO HERNANDEZ Exam Date: 11/06/2022 : 1960 Gender:F Ordering : DR ANNALISE FREED M.D. Admission #: [id number] Family : Order #: [id number] CLICK HERE TO VIEW EXAM RADIOLOGY REPORT [...] right lower leg above a patent incompetent key attendant vein. 8 mL aliquot of Varithena(r) was [...] adjacent (more content not included)... Normal [facility] VC CONSULT FOLLOWUPon 2021 VC CONSULT FOLLOWUP Patient: PEDRO HERNANDEZ Exam Date: 11/02/2022 : 1960 Gender:F Ordering : DR ANNALISE FREED M.D. Admission #: [id number] Family : Order #: [id number] CLICK HERE TO VIEW EXAM RADIOLOGY REPORT [...] Annalise Freed MD on 11/02/2022 at 10:28 Normal [facility] VC EXT VENOUS LT LIMITEDon 1 01-03-2022 VC EXT VENOUS LT LIMITED Patient: NORBERTO HERNANDEZ Exam Date: 11/02/2022 : 1960 Gender:F Ordering : DR ANNALISE FREED M.D. Admission #: [id number] Family : Order #: [id number] CLICK HERE TO VIEW EXAM RADIOLOGY REPORT [...] veins remain. *Exam performed in accordance with [facility] practice guidelines- Peripheral venous ultrasound, February 22, 2010. CONCLUSION: Post ablation occlusion of treated incompetent left leg varicose veins Dictated by: Annalise Freed MD on 11/02/2022 at 10:04 Approved by: Annalise Freed MD on 11/02/2022 at 10:05 Normal [facility] VC INJ FOAM SCLERO W US MLTI on 10-28-2022 VC INJ FOAM SCLERO W US MLTI Patient: NORBERTO HERNANDEZ Exam Date: 10/28/2022 : 1960 Gender:F Ordering : DR ANNALISE FREED M.D. Admission #: [id number] Family : Order #: [id number] CLICK HERE TO VIEW EXAM RADIOLOGY REPORT [...] Carlos Schwartz M.D. on 10/28/2022 at 13:22 Normal [facility] VC CONSULT FOLLOWUPon 2021 VC CONSULT FOLLOWUP Patient: PEDRO HERNANDEZ Exam Date: 10/26/2022 : 1960 Gender:F Ordering : DR ANNALISE FREED M.D. Admission #: [id number] Family : Order #: [id number] CLICK HERE TO VIEW EXAM RADIOLOGY REPORT [...] Schwartz M.D. on 10/26/2022 at 10:33 Normal [facility] VC EXT VENOUS LT LIMITEDon 1 12-26-2021 VC EXT VENOUS LT LIMITED Patient: NORBERTO HERNANDEZ Exam Date: 10/26/2022 : 1960 Gender:F Ordering : DR ANNALISE FREED M.D. Admission #: [id number] Family : Order #: [id number] CLICK HERE TO VIEW EXAM RADIOLOGY REPORT [...] Carlos Schwartz M.D. on 10/26/2022 at 09:59 Normal [facility] VC INJ FOAM SCLERO W US MLTI on 10-19-2022 VC INJ FOAM SCLERO W US MLTI Patient: NORBERTO HERNANDEZ Exam Date: 10/19/2022 : 1960 Gender:F Ordering : DR ANNALISE FREED M.D. Admission #: [id number] Family : Order #: [id number] CLICK HERE TO VIEW EXAM RADIOLOGY REPORT [...] varic (more content not included)... Normal [facility] VC CONSULT FOLLOWUPon 2021 VC CONSULT FOLLOWUP Patient: PEDRO HERNANDEZ Exam Date: 10/12/2022 : 1960 Gender:F Ordering : DR ANNALISE FREED M.D. Admission #: [id number] Family : Order #: [id number] CLICK HERE TO VIEW EXAM RADIOLOGY REPORT [...] Annalise Freed MD on 10/12/2022 at 09:15 [facility] VC EXT VENOUS LT LIMITEDon 1 12-12-2021 VC EXT VENOUS LT LIMITED Patient: NORBERTO HERNANDEZRoxie Exam Date: 10/12/2022 : 1960 Gender:F Ordering : DR ANNALISE FREED M.D. Admission #: [id number] Family : Order #: [id number] CLICK HERE TO VIEW EXAM RADIOLOGY REPORT [...] left leg. *Exam performed in accordance with [facility] practice guidelines- Peripheral venous ultrasound, February 22, 2010. CONCLUSION: Post ablation occlusion of treated left leg varicose veins with multiple residual incompetent varicose veins Dictated by: Annalise Freed MD on 10/12/2022 at 09:13 Approved by: Annalise Freed MD on 10/12/2022 at 09:14 Normal [facility] VC INJ FOAM SCLERO W US MLTI on 10-09-2022 VC INJ FOAM SCLERO W US MLTI Patient: PETEBECKYIE M. Exam Date: 10/09/2022 : 1960 Gender:F Ordering : DR ANNALISE FREED M.D. Admission #: [id number] Family : Order #: [id number] CLICK HERE TO VIEW EXAM RADIOLOGY REPORT [...] to (more content not included)... Normal [facility] VC CONSULT FOLLOWUPon 2021 VC CONSULT FOLLOWUP Patient: PEDRO HERNANDEZ Exam Date: 09/30/2022 : 1960 Gender:F Ordering : DR ANNALISE FREED M.D. Admission #: [id number] Family : Order #: [id number] CLICK HERE TO VIEW EXAM RADIOLOGY REPORT [...] Annalise Freed MD on 09/30/2022 at 12:34 [facility] VC EXT VENOUS LT LIMITEDon 1 11-30-2021 VC EXT VENOUS LT LIMITED Patient: NORBERTO HERNANDEZ. Exam Date: 09/30/2022 : 1960 Gender:F Ordering : DR ANNALISE FREED M.D. Admission #: [id number] Family : Order #: [id number] CLICK HERE TO VIEW EXAM RADIOLOGY REPORT [...] Freed MD on 09/30/2022 at 11:55 Normal [facility] VC ENDOVENOUS ABL PERFORATIN G LTon 09-25-2022 VC ENDOVENOUS ABL PERFORATING LT Patient: NORBERTO HERNANDEZ. Exam Date: 09/25/2022 : 1960 Gender:F Ordering : DR ANNALISE FREED M.D. Admission #: [id number] Family : Order #: [id number] CLICK HERE TO VIEW EXAM RADIOLOGY REPORT PROCEDURE: VEIN BELLMAWR ENDOVENOUS ABLATION FOR VEIN LEFT ANTERIOR ACCESSORY SAPHENOUS VEIN COMPARISON: None. INDICATIONS: Phlebitis of superficial veins of lower extremity I83.813 OPERATIVE REPORT: Diagnosis: Superficial venous reflux, incompetent perforating veins Procedure: Endovenous laser ablation of the left key attendant(s) Procedure: The patient was positioned supine on [...] percutaneously, with a 21-gauge needle, into the key attendant vein under ultrasound guidance. The needle was [...] percutaneously, with a 21-gauge needle, into the key attendant vein under ultrasound guidance. The needle was [...] percutaneously, with a 21-gauge needle, into the key attendant vein under ultrasound guidance. The needle was [...] Freed MD on 09/25/2022 at 10:14 Normal [facility] VC CONSULT FOLLOWUPon 2021 VC CONSULT FOLLOWUP Patient: PEDRO HERNANDEZ Exam Date: 09/09/2022 : 1960 Gender:F Ordering : DR ANNALISE FREED M.D. Admission #: [id number] Family : Order #: [id number] CLICK HERE TO VIEW EXAM RADIOLOGY REPORT [...] Freed MD on 09/09/2022 at 10:50 Normal [facility] VC EXT VENOUS RT LIMITEDon 1 VC EXT VENOUS RT LIMITED Patient: NORBERTO HERNANDEZ Exam Date: 09/09/2022 : 1960 Gender:F Ordering : DR ANNALISE FREED M.D. Admission #: [id number] Family : Order #: [id number] CLICK HERE TO VIEW EXAM RADIOLOGY REPORT [...] Freed MD on 09/09/2022 at 10:02 Normal [facility] VC ENDOVENOUS ABL 1ST V RTon 09-04-2022 VC ENDOVENOUS ABL 1ST V RT Patient: NORBERTO HERNANDEZ Exam Date: 09/04/2022 : 1960 Gender:F Ordering : DR ANNALISE FREED M.D. Admission #: [id number] Family : Order #: [id number] CLICK HERE TO VIEW EXAM RADIOLOGY REPORT PROCEDURE: VEIN CENTER ENDOVENOUS ABLATION FIRST VEIN RIGHT GREAT SAPHENOUS VEIN COMPARISON: None. INDICATIONS: Pain co-occurrent and due to varicose veins of bilateral legs I83.813 OPERATIVE REPORT: The risks and benefits of the procedure had been previously discussed, and were rediscussed at length. Informed written consent was obtained by and Benito dinh. Time out procedure was [...] Freed MD on 09/04/2022 at 10:24 Normal [facility] RSVon 08-14-2022 RSV AG Negative Normal NEGATIVE [facility] Comment on above: Performed By: #### R SV ####[facility] [address] [place], [place] [address]Di. Edy Link MG MAMM SCREEN 3D GREG CADon 05-29-2022 MG MAMM SCREEN 3D GREG CAD Patient: NORBERTO HERNANDEZ Exam Date: 05/29/2022 : 1960 Gender:F Ordering : DR RADHA BATES . Admission #: [id number] Family : Order #: [id number] CLICK HERE TO VIEW EXAM RADIOLOGY REPORT [...] uterine cancer at age 61. LOCATION: [facility] BREAST COMPOSITION: Heterogeneously dense,which may obscure [...] Freed MD on 05/29/2022 at 08:51 Normal [facility] XR DEXA BONE DENSITYon 05-29 XR DEXA BONE DENSITY DEXA Bone Density S nicko CLINICAL: Evaluate bone mineral density. Postmenopausal COMPARISON: None FINDINGS: The bone density study was assessed by dual-energy x-ray absorptiometry with the [employer] scanner. The test results are expressed in [...] by: ANNALISE HERNANDEZ Date: 2022-05-29 08:47 Normal [facility] VC COMP CONSULTATIONon 05-22 VC COMP CONSULTATION Patient: BECKY HERNANDEZRoxie Exam Date: 05/22/2022 : 1960 Gender:F Ordering : DR ANNALISE FREED M.D. Admission #: [id number] Family : Order #: [id number] CLICK HERE TO VIEW EXAM RADIOLOGY REPORT [...] arterial disease 5. CEAP: C4a, EC, AP, [place] PLAN: 1. Continued use of compression stockings [...] Schwartz M.D. on 05/22/2022 at 15:27 Normal [facility] VC VENOUS REFLUX GREG LMTon 0 05-22-2022 VC VENOUS REFLUX GREG LMT Patient: NORBERTO HERNANDEZ Exam Date: 05/22/2022 : 1960 Gender:F Ordering : DR ANNALISE FREED M.D. Admission #: [id number] Family : Order #: [id number] CLICK HERE TO VIEW EXAM RADIOLOGY REPORT [...] chronic thrombus visualized Compressibility: Normal Flow: Normal Rpg Programmer Analyst: Dist/med calf 3.9mm with 0s reflux; mid/med [...] Schwartz M.D. on 05/22/2022 at 14:54 Normal [facility] Coding Summary.on 02-25-2021 Coding Summary. CODING DATE: [facility] STATUS: Home (Routine DC) PAYOR: Medical Fackler APC DESCRIPTION 5523 Level 3 Imaging without [...] CphT Date Saved: 02/25/2021 12:07 pm Normal [facility] US LE Venous Duplex Insuffic iency Bilaton 02-17-2021 [...] None. Mid calf: Diameter not visualized Normal [facility] Consent for Treatmenton 01-27 Consent for Treatment [id number]#1.00C D:127 Normal [facility] RAD - Ultrasound Impressiono n 02-14-2021 RAD - Ultrasound Impression [id number]#1.00C D:127 Normal [facility] Screenson 02-06-2021 Screens [id number]#1.00C D:127 Normal [facility] Ambulatory Clinical Summaryo n 02-05-2021 Ambulatory Clinical Summary {[id number]}CD:[id number] Normal [facility] General Surgery Office/Clini c Noteon 02-05-2021 General [...] lower extremity with inflammation) As above. Ordered: US LE Venous Duplex Insufficiency Bilat Follow-up With When Contact Information Vaishali ESCOBEDO MD Additional Instructions: VENUS GREG STUDY CALL RESULTS HOSE RX GIVEN [...] Family History Aneurysm: Mother. COPD: Father. Normal [facility] Comment on above: Result Comment: Elec tronically Signed By: Vaishali ESCOBEDO MD\.br\Date and Time Signed: 02/05/21 12:06 EST Retail - Clinical Noteon Retail - Clinical Note [id number]#1.00C D:127 Normal [facility] Vital Signs Date Time Vital Sign Value Performing Clinician Ron delgado 08-30-2024 10:53-0400 Body mass index (BMI) [Ratio] 33.4 kg/m2 [place] 08-30-2024 10:53-0400 Diastolic blood pressure 80 mm[Hg] [place] 08-30-2024 10:53-0400 Systolic blood pressure 130 mm[Hg] [place] 08-30-2024 10:33-0400 Body height 165.1 cm [facility] 08-30-2024 10:33-0400 Body weight 91.17 kg [facility] 08-30-2024 10:33-0400 Heart rate 61 /min [facility] 08-30-2024 10:33-0400 Respiratory rate 12 /min [facility] 08-05-2022 08:36-0400 Body height 165.1 cm DO Jayy Ball Work Phone: [place] 08-05-2022 08:36-0400 Body mass index (BMI) [Ratio] 29.9 kg/m2 DO Jayy Ball Work Phone: [place] 08-05-2022 08:36-0400 Body weight 81.64 kg DO Jayy Ball Work Phone: [place] 08-05-2022 08:10-0400 Body temperature 97.9 [degF] DO Jayy Ball Work Phone: [place] 08-05-2022 08:10-0400 Diastolic blood pressure 90 mm[Hg] DO Jayy Cordoba Work Phone: [place] 08-05-2022 08:10-0400 Heart rate 68 /min DO Jayy Cordoba Work Phone: [place] 08-05-2022 08:10-0400 Respiratory rate 20 /min DO Jayy Cordoba Work Phone: [place] 08-05-2022 08:10-0400 Systolic blood pressure 150 mm[Hg] DO Jayy Cordoba Work Phone: [place] Encounters Encounter Date Encounter Type Care Provider Facility Start: 08-30-2024 End: 08-30-2024 ambulatory [facility] Work Phone: Start: 08-30-2024 End: 08-30-2024 Patient encounter procedure [facility] Work Phone: Start: 01-31-2024 End: 01-31-2024 ambulatory RADHA BATES [...] Start: 11-02-2022 End: 11-03-[address] ANNALISE RFEED Facility:[facility]1 Start: 10-28-2022 End: 10-29-[address] ANNALISE FREED Facility:[facility] Start: 10-26-2022 End: 10-27-2022 ambulatory RADHA BOOGIE Facility:[facility] Start: 10-26-2022 End: 10-27-[address] ANNALISE FREED Facility:[facility] Start: 10-19-2022 End: 10-20-[address] ANNALISE FREED Facility:[facility] Start: 10-12-2022 End: 10-13-[address] ANNALISE FREED Facility:[facility] Start: 10-09-2022 End: 10-10-[address] ANNALISE FREED Facility:[facility] Start: 09-30-2022 End: 10-01-[address] ANNALISE FREED Facility:[facility] Start: 09-28-2022 End: 09-29-2022 ambulatory RADHA BOOGIE Facility:[facility] Start: 09-25-2022 End: 09-26-[address] ANNALSIE FREED Facility:[facility] Start: 09-09-2022 End: 09-10-[address] ANNALISE FREED Facility:[facility] Start: 09-04-2022 End: 09-05-[address] ANNALISE FREED Facility:[facility] Start: 08-31-2022 End: 09-01-2022 ambulatory RADHA BOOGIE Facility:[facility] Start: 08-14-2022 End: 08-14-[address] JAYY CORDOBA Facility:[facility] Start: 08-10-2022 End: 08-11-2022 ambulatory [facility] Facility:[facility] Start: 08-05-2022 End: 08-06-2022 ambulatory Nadege Yeboah Facility:[place] Start: 08-05-2022 End: 08-05-2022 ambulatory DO Jayy Cordoba Work Phone: [facility] Work Phone: Start: 08-05-2022 End: 08-05-2022 Discharged Recurring DO Jayy Cordoba Work Phone: [facility] Start: 07-13-2022 End: 07-14-2022 ambulatory [facility] Facility:[facility]1 Start: 06-12-2022 End: 06-13-2022 ambulatory [facility] Facility:[facility]1 Start: 05-29-2022 End: 05-30-[address] RADHA BATES . Facility:[facility]1 Start: 05-22-2022 End: 05-23-[address] ANNALISE FREED Facility:[facility] Start: 05-11-2022 End: 05-12-2022 ambulatory [facility] Facility:[facility]1 Immunizations Immunization Date Immunization Notes Care Provider Mary bedolla 02-21-2022 COVID-19 mRNA, Comir bolivar (Pfizer) [place] 08-26-2020 influenza virus vacc ine, unspecified formulation [facility] Payers Date Payer Category Payer Self-pay 1960 Unknown [id number] .. [id number] 1960 Unknown [id number] 0.1.398689.3.579.2.593 1960 Unknown [id number] ..[id number] 0.1.222172.3.579.2.59 1961 Unknown [id number] ..[id number] 0.1.022971.3.579.2.593 1961 Unknown [id number] ..[id number] 0.1.931991.3.579.2.593 1961 Unknown [id number] 2.16.84 0.1.536909.3.579.2.593 1961 Unknown [id number] 2.16.84 0.1.799387.3.579.2.593 1961 Unknown [id number] 2.16.84 0.1.804522.3.579.2.593 1961 Unknown [id number] 2.16.84 0.1.953252.3.579.2.593 1961 Unknown [id number] 2.16.84 0.1.862492.3.579.2.593 1961 Unknown [id number] 2.16.84 0.1.819839.3.579.2.593 1961 Unknown [id number] 2.16.84 0.1.599834.3.579.2.593 1961 Unknown [id number] 2.16.84 0.1.498646.3.579.2.593 1961 Unknown [id number] 2.16.84 0.1.283109.3.579.2.593 1961 Unknown [id number] 2.16.84 0.1.083588.3.579.2.593 1961 Unknown [id number] 2.16.84 0.1.476667.3.579.2.593 1961 Unknown [id number] 2.16.84 0.1.897009.3.579.2.593 1961 Unknown [id number] 2.16.84 0.1.947837.3.579.2.593 1961 Unknown [id number] 2.16.84 0.1.117875.3.579.2.593 1961 Unknown [id number] 2.16.84 0.1.429151.3.579.2.593 1961 Unknown [id number] 2.16.84 0.1.354240.3.579.2.593 1961 Unknown [id number] 2.16.84 0.1.571989.3.579.2.593 1961 Unknown [id number] 2.16.84 0.1.311242.3.579.2.593 1961 Unknown [id number] 2.16.84 0.1.092132.3.579.2.593 1961 Unknown [id number] 2.16.84 0.1.776269.3.579.2.593 1961 Unknown [id number] 2.16.84 0.1.892223.3.579.2.593 1961 Unknown [id number] 2.16.84 0.1.988009.3.579.2.593 1961 Unknown [id number] 2.16.84 0.1.218607.3.579.2.593 1961 Unknown [id number] 2.16.84 0.1.585860.3.579.2.593 1961 Unknown [id number] 2.16.84 0.1.281755.3.579.2.593 1961 Unknown [id number] 2.16.84 0.1.877994.3.579.2.593 1961 Unknown [id number] 2.16.84 0.1.962125.3.579.2.593 1961 Unknown [id number] 2.16.84 0.1.749860.3.579.2.593 1961 Unknown [id number] 2.16.84 0.1.152708.3.579.2.1259 1959 Unknown [id number] Unknown [id number] 2.16.8 40.1.511243.3.579.2.531 Unknown [id number] 2.16.8 40.1.725187.3.579.2.531 Social History Date Type Detail Facility Start: 08-05-2022 End: 08-05-2022 Tobacco smoking status NHIS Never smoked tobacco (finding) [place] Start: 1960 Sex Assigned At Female F [facility] Progress note 08-05-2022 Note Date & Type Note Facility 08-05-2022 Progress note Note Date/Time August 05, 2022 8:36am [facility] [address] [place] [address] Wound Center Provider Note Signed Patient: Norberto Hernandez MR#: [id number] : 1960 Acct:[id number] Age/Sex: 62 / F Copies to: DO Nadege Cooper APRN~ HPI Date of Visit Date of Visit: Date of Service: 08/05/2022 Time of Service: 08:27 Narrative HPI: 08/05/22 Norberto is a 62 year old female presenting to [facility] wound care program for an initial visit for eval and treatment of a left ankle area ulcer that doesappear d/t venous stasis disease. She has a long standing history with venous issues and did have surgery about 10 years ago. She was seen by [facility] and was referred to Dr. Freed in vascular and she is scheduled for [...] medial ankle May 2022 Mode of Arrival/ [employer] Supervisor: Personal vehicle Lives with:: Spouse Appetite Description: [...] Stasis Ulcer Thickness: Skin Breakdown Bed Appearance: Hoagland and Yellow Percent of Wound Bed Granulated/Red: [...] Signed By: <Electronically signed by TRINO Yeboah> 08/05/22 0836 [facility] Work Phone: Clinical Note 05-12-2022 Note [...] by: J CARLOS SCHWARTZ Date: 2022-05-12 13:04 [facility] Evaluation note Note Date & Type Note Facility Evaluation note Diagnosis Onset Date 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 Overweight chronic Venous stasis dermatitis of left lower extremity chronic Venous stasis ulcer of ankle chronic [facility] Work Phone: Evaluation note Note Date & Type Note Facility Evaluation note No assessment information availa ble [facility] Work Phone: Summary Purpose Family History Relationship Condition Age at Onset Recorded Date/T danika Not Specified Diabetes mellitus Unknown Varicose veins of lower extremity Unknown father Heart disease Unknown Hypertension Unknown Cerebrovascular accident (CVA) Unknown Relationship Condition Age at Onset Recorded Date/T danika mother Diabetes mellitus Unknown Varicose veins of lower extremity Unknown father Heart disease Unknown Hypertension Unknown Cerebrovascular accident (CVA) Unknown Advance Directives Advance Directive Response Recorded Date/ Time Advance Directives No February 02 24 11:11am Chief Complaint and Reason for Visit Chief Complaint Open Wound Reason for Visit Edema of left lower leg Hemosiderin pigmentation of lower extremity due to varicose veins Overweight Venous stasis dermatitis of left lower extremity Venous stasis ulcer of ankle Chief Complaint L Knee Pain Additional Source Comments INFORMATION SOURCE (unrecogn ized section and content) DATE CREATED AUTHOR 02/26/2021 Aram Jones [facility] DATE CREATED AUTHOR AUTHOR'S ORGANIZ ATION 08/11/2022 [facility] DATE CREATED AUTHOR AUTHOR'S ORGANIZ ATION 10/04/2022 [facility] DATE CREATED AUTHOR AUTHOR'S ORGANIZ ATION 02/04/2023 [facility] DATE CREATED AUTHOR AUTHOR'S ORGANIZ ATION 01/31/2024 [facility] [employer] Care Teams (unrecognized sec tion and content) Team Status: Inactive Member Role Status Dates Nadege Yeboah APRN Attending Provider Active Jayy Cordoba , DO Primary Care Provider Active Team Status: Active Member Role Status Dates Jayy Cordoba , DO Primary Care Provider Active Team Status: Inactive Member Role Status Dates Jayy Cordoba , DO Primary Care Provide r, Attending Provider Active Start: August 30, 2024 End: August 30, 2024 Goals (unrecognized section and content) Goals may be documented in a n alternate sectionGoals may be documented in an alternate section FOR RECORDS PERTAINING TO PATIENTS [...] BE BASED ON THE PRIMARY CLINICAL RECORDS. [facility] [employer] [facility] provides no warranty or guarantee of the accuracy or completeness of information in this document.
== END 2024-10-16 08:37 | disposition home or self-care (01) ==
LOC: MAMMO 08:36
PROVIDERS: PCP Internal Medicine; Visit Provider Obstetrics & Gynecology
DX: Z12.31 Encounter for screening mammogram for malignant neoplasm of breast (principal); Z80.8 Family history of malignant neoplasm of other organs or systems
CPT/HCPCS: 77063; 77067

== ENCOUNTER 2025-02-12 09:13 | Outpatient (OUT) | payer OTHER, SELFPAY ==
--- NOTE | 2025-02-12 09:17 | MR_ITS ---
[address] [address] Patient Name: NOBRERTO FREEMAN MRN: [id number] date: 1960 Sex: F Assigned Patient Location: MRI Current Patient Location: MRI Accession/Order Number: [id number] Exam Date: 02/12/2025 14:55 Report Date: 02/12/2025 15:04 At the request of: MYRTLE HUSTON DO Procedure: MR knee LT wo con EXAMINATION: MRI OF THE LEFT KNEE CLINICAL DATA: Chronic medial left knee pain. No known injury. History of meniscal tear. COMPARISON: Left knee series 10/10/2024 TECHNIQUE: Multiecho, multiplanar imaging was performed with use of an extremity coil. No contrast was administered. FINDINGS: Joint:Small joint effusion and Mohan's cyst. Mild bone marrow edema is seen involving the medial condyle of the femur with articular cartilage irregularity within this region. Mild bone marrow edema is seen involving the lateral tibial plateau. Soft tissues: Anterior soft tissue swelling. Quadriceps/Patellar tendon/retinaculum: Normal Muscles: Normal ACL:Normal PCL:Normal Medial Meniscus:Tear posterior horn medial meniscus extending into the body. Lateral Meniscus:Normal MCL:Grade 1 MCL strain. LCL complex: Normal MR/MR knee LT wo con IMPRESSION: 1. SMALL JOINT EFFUSION WITH MOHAN'S CYST. 2. BONE MARROW EDEMA INVOLVING THE MEDIAL CONDYLE OF THE FEMUR WITH ARTICULAR CARTILAGE IRREGULARITY AND POSTERIOR HORN MEDIAL MENISCUS TEAR. 3. MILD BONE MARROW EDEMA LATERAL TIBIAL PLATEAU WITHOUT DEFINITIVE FRACTURE LINE. 4. GRADE 1 MCL STRAIN.. Impression dictated by: Xavier Romano Jr. DDenice02/12/2025 3:04 PM Dictation Location: [facility] Electronically authenticated by: [id number] Y Date: 02/12/2025 15:04
--- OUTSIDE RECORDS SUMMARY | 2025-02-12 09:25 | XMS_ITS | CCD ---
Author Organization [facility] Care Team Providers Care Construction Framer Name Role Phone Nadege Ybeoah Attending Unavailable Obinna, Nadege Admitting Unavailable Adalid, Jayy Primary Care Unavailable TRINO Yeboah Attending Provider DO Jayy Cordoba Primary Care Provider [phone] RADHA BOOGIE Admitting Unavailable RADHA BOOGIE Attending [...] BALL, DR IRAHETA Primary Care Unavailable HIGHLANDER, RDAHA Lucero Admitting Unavailable HIGHLANDER, RADHA Lucero Attending [...] Unavailable PAULO ., DR GARCIA Consulting Unavailable RAMSAY, DR ANNALISE Short Admitting Unavailable RAMSAY, DR ANNALISE Short Attending Unavailable ADALID, DR IRAHETA Primary Care Unavailable RAMSAY, DR ANNALISE Short Consulting Unavailable ABDIAZIZ, DR ANNALISE Short Admitting Unavailable WEST, DR ANNALISE Short Attending Unavailable ADALID, DR IRAHETA Primary Care Unavailable RAMSAY, DR ANNALISE Short Consulting Unavailable KI, DR J CARLOS Ruiz Consulting Unavailable WEST, DR ANNALISE Short Admitting Unavailable WEST, DR ANNALISE Short Attending Unavailable ADALID, DR IRAHETA Primary Care Unavailable WEST, DR ANNALISE Short Consulting Unavailable RADHA BATES Attending Unavailable Allergies Allergy Classification Reported Allergen(s) Allergy Type Date of Onset Reaction(s) Facility (3 sources) Sulfonamides (Antibiotic) Drug allergy (disorder) 08-05-2022 [facility] Repository (1 source) Sulfonamides (Antibiotic) Drug allergy (disorder) 12-27-2013 [facility] Repository Medications Current Medications Medication Drug Class(es) Dates Sig (Normalized) Sig (Original) clobetasol propionate 0.0005 mg/mg topical ointment (2 sources) Corticosteroid Start: 08-30-2024 Clobetasol 0.05 % ointment Active 1 APPLIC TOPICAL Twice daily as needed for rash August 29, 2024 11:00pm Problems Active Problems Problem Classification Problem Date [...] Episodic Other diseases of veins and lymphatics (2 sources) Venous insufficiency of leg; Translations: [Venous insufficiency (chronic) (peripheral)] 02-03-2024 Episodic Other non-traumatic joint disorders (1 source) Anterior knee pain; Translations: [Pain in left knee] 08-30-2024 Episodic Other non-traumatic joint disorders (1 source) Pain in left knee; Translations: [Pain in joint, lower leg] 01-22-2025 Episodic Other nutritional; endocrine; and metabolic disorders (1 source) Obesity, unspecified; Translations: [OBESITY UNSPECIFIED] Onset: 2 Chronic Other nutritional; endocrine; and metabolic disorders (3 sources) Overweight; Translations: [Overweight] Onset: 2 08-05-2022 Episodic Other nutritional; endocrine; and metabolic disorders (3 sources) Overweight; Translations: [Overweight] 08-20-2022 Episodic Other screening for suspected conditions (not mental disorders or infectious disease) (8 sources) Encounter for screening for malignant neoplasm of cervix; Translations: [Encounter for screening mammogram for malignant neoplasm of breast] Onset: 2 Episodic Other skin disorders (3 sources) Other specified disorders of pigmentation; Translations: [Dyschromia, unspecified] Onset: 2 08-05-2022 Episodic Other skin disorders (3 sources) Hemosiderin pigmentation of lower limb due to varicose veins of lower limb; Translations: [Other specified disorders of pigmentation] 08-20-2022 Episodic Other skin disorders (4 sources) Corns and callosities; Translations: [CORNS AND CALLOSITIES] Onset: 2 Episodic Other skin disorders (2 sources) Vesicular eczema; Translations: [Dyshidrosis [pompholyx]] 08-30-2024 Episodic [...] [Localized edema] 08-20-2022 Episodic Sprains and strains (3 sources) Strain of muscle of lower limb; Translations: [...] malignant neoplasm of other genital organs; Translations: [HAYDER HALLMAN NEOPLSM OT GENIT ORGN] Onset: 06-04-2022 Episodic Results Test Name Value Interpretation Reference Range Facility PAP ACOG PANEL 2: 30 to 65on 02-02-2023 . . Normal [facility] Comment on above: Result Comment: Perf ormed at: WB Performed By: #### [id number] ####[facility] [address] [place] [address]DrRoxie Link Age Gdln ACOG Testing 30-65 Normal [facility] Comment on above: Performed By: #### [id number] ####[facility] [address] [place], [place] [address]DrRoxie Link DIAGNOSIS: Comment Normal [facility] Comment on above: Result Comment: NEGA TIVE FOR INTRAEPITHELIAL LESION OR MALIGNANCY. Performed at: WB Performed By: #### 4 [id number] ####[facility] [address] [place], [place] [address]DrRoxie Link HPV Aptima Negative Normal Negative [facility] Comment on above: Result Comment: This nucleic acid amplification test detects fourteen high-risk HPV types (16,18,31,33,35,39,45,51,52,56,58,59,66,68) without differentiation. Performed at: =G Performed By: #### [id number] ####[facility] [address] [place], [place] [address]DrRoxie Link HPV Genotype Reflex Comment Normal [facility] Comment on above: Result Comment: Crit eria not met, HPV Genotype not performed. Performed at: WB Performed By: #### 4 [id number] ####[facility] [address] [place] [id number] Link Methodology: Comment Normal [facility] Comment on above: Result Comment: This liquid based ThinPrep(R) pap test was screened with the use of an image guided system. Performed at: WB Performed By: #### 4 [id number] ####[facility] [address] [place], [place] [address]DrRoixe Link Note: Comment Normal [facility] Comment on above: Result Comment: The Pap smear is a screening test designed to aid in the detection of premalignant and malignant conditions of the uterine cervix. It is not a diagnostic procedure and should not be used as the sole means of detecting cervical cancer. Both false-positive and false-negative reports do occur. . Performed at: WB Performed By: #### 4 [id number] ####[facility] [address] [place] [address]DrRoxie Link Performed by: Comment Normal [facility] Comment on above: Result Comment: Maritza Zelaya, Winter Intern (ASCP) Performed at: WB Performed By: #### 4 [id number] ####[facility] [address] [place] [address]DrRoxie iLnk Specimen adequacy: Comment Normal [facility] Comment on above: Result Comment: Sati sfactory for evaluation. Endocervical and/or squamous metaplastic cells (endocervical component) are present. Performed at: WB Performed By: #### 4 [id number] ####[facility] [address] [place] [address]DrRoxie Link VC INJ SCL MARYBETH CARPENTER REFRIGERATOR VEINSon 1 VC INJ SCL MARYBETH CARPENTER REFRIGERATOR VEINS Patient: NORBERTO HERNANDEZ Exam Date: 11/27/2022 : 1960 Gender:F Ordering : DR ANNALISE FREED M.D. Admission #: [id number] Family : Order #: [id number] CLICK HERE TO VIEW EXAM RADIOLOGY REPORT PROCEDURE: VEIN CENTER INJECTION SCLEROSING SOLUTION MULTIPLE VEINS SAME COMPARISON: VC INJ SCL MARYBETH CARPENTER REFRIGERATOR VEINS, 11/26/2022. VC INJ SCL MARYBETH CARPENTER REFRIGERATOR VEINS, 11/24/2022. INDICATIONS: Pain co-occurrent and due [...] Annalise Freed MD on 11/27/2022 at 10:34 [facility] VC INJ SCL MARYBETH CARPENTER REFRIGERATOR VEINSon 1 VC INJ SCL MARYBETH CARPENTER REFRIGERATOR VEINS Patient: NORBERTO HERNANDEZ Exam Date: 11/26/2022 : 1960 Gender:F Ordering : DR ANNALISE FREED M.D. Admission #: [id number] Family : Order #: [id number] CLICK HERE TO VIEW EXAM RADIOLOGY REPORT PROCEDURE: VEIN CENTER INJECTION SCLEROSING SOLUTION MULTIPLE VEINS SAME COMPARISON: VC INJ SCL MARYBETH CARPENTER REFRIGERATOR VEINS, 11/24/2022. INDICATIONS: Pain co-occurrent and due [...] Freed MD on 11/26/2022 at 10:04 Normal [facility] VC CONSULT FOLLOWUPon 2021 VC CONSULT FOLLOWUP Patient: PEDRO HERNANDEZ Exam Date: 11/25/2022 : 1960 Gender:F Ordering : DR ANNALISE FREED M.D. Admission #: [id number] Family : Order #: [id number] CLICK HERE TO VIEW EXAM RADIOLOGY REPORT [...] Freed MD on 11/25/2022 at 15:34 Normal [facility] VC EXT VENOUS RT LIMITEDon 1 01-26-2022 VC EXT VENOUS RT LIMITED Patient: NORBERTO HERNANDEZ Exam Date: 11/25/2022 : 1960 Gender:F Ordering : DR ANNALISE FREED M.D. Admission #: [id number] Family : Order #: [id number] CLICK HERE TO VIEW EXAM RADIOLOGY REPORT [...] Freed MD on 11/25/2022 at 09:51 Normal [facility] VC INJ SCL MARYBETH CARPENTER REFRIGERATOR VEINSon 1 01-25-2022 VC INJ SCL MARYBETH CARPENTER REFRIGERATOR VEINS Patient: NORBERTO HERNANDEZ Exam Date: 11/24/2022 : 1960 Gender:F Ordering : DR ANNALISE FREED M.D. Admission #: [id number] Family : Order #: [id number] CLICK HERE TO VIEW EXAM RADIOLOGY REPORT [...] Freed MD on 11/24/2022 at 11:04 Normal [facility] VC INJ FOAM SCLERO W US MLTI on 11-19-2022 VC INJ FOAM SCLERO W US MLTI Patient: NORBERTO HERNANDEZ Exam Date: 11/19/2022 : 1960 Gender:F Ordering : DR ANNALISE FREED M.D. Admission #: [id number] Family : Order #: [id number] CLICK HERE TO VIEW EXAM RADIOLOGY REPORT [...] Schwartz M.D. on 11/19/2022 at 10:04 Normal [facility] VC CONSULT FOLLOWUPon 2021 VC CONSULT FOLLOWUP Patient: PEDRO HERNANDEZ Exam Date: 11/16/2022 : 1960 Gender:F Ordering : DR ANNALISE FREED M.D. Admission #: [id number] Family : Order #: [id number] CLICK HERE TO VIEW EXAM RADIOLOGY REPORT [...] Schwartz M.D. on 11/16/2022 at 11:21 Normal [facility] VC EXT VENOUS LT LIMITEDon 1 01-17-2022 VC EXT VENOUS LT LIMITED Patient: NORBERTO HERNANDEZ Exam Date: 11/16/2022 : 1960 Gender:F Ordering : DR ANNALISE FREED M.D. Admission #: [id number] Family : Order #: [id number] CLICK HERE TO VIEW EXAM RADIOLOGY REPORT [...] Schwartz M.D. on 11/16/2022 at 11:17 Normal [facility] VC INJ FOAM SCLERO W US MLTI on 11-13-2022 VC INJ FOAM SCLERO W US MLTI Patient: NORBERTO HERNANDEZ Exam Date: 11/13/2022 : 1960 Gender:F Ordering : DR ANNALISE FREED M.D. Admission #: [id number] Family : Order #: [id number] CLICK HERE TO VIEW EXAM RADIOLOGY REPORT [...] pat (more content not included)... Normal [facility] VC CONSULT FOLLOWUPon 2021 VC CONSULT FOLLOWUP Patient: PEDRO HERNANDEZ Exam Date: 11/12/2022 : 1960 Gender:F Ordering : DR ANNALISE FREED M.D. Admission #: [id number] Family : Order #: [id number] CLICK HERE [...] Freed MD on 11/12/2022 at 12:40 Normal [facility] VC EXT VENOUS GREG LIMITEDon 11-12-2022 VC EXT VENOUS GREG LIMITED Patient: NORBERTO HERNANDEZ Exam Date: 11/12/2022 : 1960 Gender:F Ordering : DR ANNALISE FREED M.D. Admission #: [id number] Family : Order #: [id number] CLICK HERE TO VIEW EXAM RADIOLOGY REPORT [...] MD on 11/12/2022 at 12:38 Normal [facility] VC INJ FOAM SCLERO W US MLTI on 11-09-2022 VC INJ FOAM SCLERO W US MLTI Patient: NORBERTO HERNANDEZ Exam Date: 11/09/2022 : 1960 Gender:F Ordering : DR ANNALISE FREED M.D. Admission #: [id number] Family : Order #: [id number] CLICK HERE TO VIEW EXAM RADIOLOGY REPORT [...] o (more content not included)... Normal [facility] VC INJ FOAM SCLERO W US MLTI on 11-06-2022 VC INJ FOAM SCLERO W US MLTI Patient: NORBERTO HERNANDEZ Exam Date: 11/06/2022 : 1960 Gender:F Ordering : DR ANNALISE FREED M.D. Admission #: [id number] Family : Order #: [id number] CLICK HERE TO VIEW EXAM RADIOLOGY REPORT [...] right lower leg above a patent incompetent clay worker vein. 8 mL aliquot of Varithena(r) was [...] adjacent (more content not included)... Normal [facility] VC CONSULT FOLLOWUPon 2021 VC CONSULT FOLLOWUP Patient: PEDRO HERNANDEZ Exam Date: 11/02/2022 : 1960 Gender:F Ordering : DR ANNALISE FREED M.D. Admission #: [id number] Family : Order #: [id number] CLICK HERE TO VIEW EXAM RADIOLOGY REPORT [...] Freed MD on 11/02/2022 at 10:28 Normal [facility] VC EXT VENOUS LT LIMITEDon 1 01-03-2022 VC EXT VENOUS LT LIMITED Patient: NORBERTO HERNANDEZ Exam Date: 11/02/2022 : 1960 Gender:F Ordering : DR ANNALISE FREED M.D. Admission #: [id number] Family : Order #: [id number] CLICK HERE TO VIEW EXAM RADIOLOGY REPORT [...] Freed MD on 11/02/2022 at 10:05 Normal [facility] VC INJ FOAM SCLERO W US MLTI on 10-28-2022 VC INJ FOAM SCLERO W US MLTI Patient: NORBERTO HERNANDEZ Exam Date: 10/28/2022 : 1960 Gender:F Ordering : DR ANNALISE FREED M.D. Admission #: [id number] Family : Order #: [id number] CLICK HERE TO VIEW EXAM RADIOLOGY REPORT [...] Schwartz M.D. on 10/28/2022 at 13:22 Normal [facility] VC CONSULT FOLLOWUPon 2021 VC CONSULT FOLLOWUP Patient: PEDRO HERNANDEZ Exam Date: 10/26/2022 : 1960 Gender:F Ordering : DR ANNALISE FREED M.D. Admission #: [id number] Family : Order #: [id number] CLICK HERE TO VIEW EXAM RADIOLOGY REPORT [...] Schwartz M.D. on 10/26/2022 at 10:33 Normal [facility] VC EXT VENOUS LT LIMITEDon 1 12-26-2021 VC EXT VENOUS LT LIMITED Patient: NORBERTO HERNANDEZ Exam Date: 10/26/2022 : 1960 Gender:F Ordering : DR ANNALISE FREED M.D. Admission #: [id number] Family : Order #: [id number] CLICK HERE TO VIEW EXAM RADIOLOGY REPORT [...] Schwartz M.D. on 10/26/2022 at 09:59 Normal [facility] VC INJ FOAM SCLERO W US MLTI on 10-19-2022 VC INJ FOAM SCLERO W US MLTI Patient: NORBERTO HERNANDEZ Exam Date: 10/19/2022 : 1960 Gender:F Ordering : DR ANNALISE FREED M.D. Admission #: [id number] Family : Order #: [id number] CLICK HERE TO VIEW EXAM RADIOLOGY REPORT [...] varic (more content not included)... Normal [facility] VC CONSULT FOLLOWUPon 2021 VC CONSULT FOLLOWUP Patient: PEDRO HERNANDEZ Exam Date: 10/12/2022 : 1960 Gender:F Ordering : DR ANNALISE FREED M.D. Admission #: [id number] Family : Order #: [id number] CLICK HERE TO VIEW EXAM RADIOLOGY REPORT [...] Freed MD on 10/12/2022 at 09:15 Normal [facility] VC EXT VENOUS LT LIMITEDon 1 12-12-2021 VC EXT VENOUS LT LIMITED Patient: NORBERTO HERNANDEZ Exam Date: 10/12/2022 : 1960 Gender:F Ordering : DR ANNALISE FREED M.D. Admission #: [id number] Family : Order #: [id number] CLICK HERE TO VIEW EXAM RADIOLOGY REPORT [...] Freed MD on 10/12/2022 at 09:14 Normal [facility] VC INJ FOAM SCLERO W US MLTI on 10-09-2022 VC INJ FOAM SCLERO W US MLTI Patient: NORBERTO HERNANDEZ Exam Date: 10/09/2022 : 1960 Gender:F Ordering : DR ANNALISE FREED M.D. Admission #: [id number] Family : Order #: [id number] CLICK HERE TO VIEW EXAM RADIOLOGY REPORT [...] to (more content not included)... Normal [facility] VC CONSULT FOLLOWUPon 2021 VC CONSULT FOLLOWUP Patient: PEDRO HERNANDEZ Exam Date: 09/30/2022 : 1960 Gender:F Ordering : DR ANNALISE FREED M.D. Admission #: [id number] Family : Order #: [id number] CLICK HERE TO VIEW EXAM RADIOLOGY REPORT [...] Freed MD on 09/30/2022 at 12:34 Normal [facility] VC EXT VENOUS LT LIMITEDon 1 11-30-2021 VC EXT VENOUS LT LIMITED Patient: NORBERTO HERNANDEZ Exam Date: 09/30/2022 : 1960 Gender:F Ordering : DR ANNALISE FREED M.D. Admission #: [id number] Family : Order #: [id number] CLICK HERE TO VIEW EXAM RADIOLOGY REPORT [...] Decreased flow *Exam performed in accordance with [facility] practice guidelines- Peripheral venous ultrasound, February 22, 2010. CONCLUSION: Thrombus partially occluding the treated left anterior accessory saphenous vein Dictated by: Annalise Freed MD on 09/30/2022 at 11:54 Approved by: Annalise Freed MD on 09/30/2022 at 11:55 Normal [facility] VC ENDOVENOUS ABL PERFORATIN G LTon 09-25-2022 VC ENDOVENOUS ABL PERFORATING LT Patient: NORBERTO HERNANDEZ Exam Date: 09/25/2022 : 1960 Gender:F Ordering : DR ANNALISE FREED M.D. Admission #: [id number] Family : Order #: [id number] CLICK HERE TO VIEW EXAM RADIOLOGY REPORT PROCEDURE: VEIN CENTER ENDOVENOUS ABLATION FOR VEIN LEFT ANTERIOR ACCESSORY SAPHENOUS VEIN COMPARISON: None. INDICATIONS: Phlebitis of superficial veins of lower extremity I83.813 OPERATIVE REPORT: Diagnosis: Superficial venous reflux, incompetent perforating veins Procedure: Endovenous laser ablation of the left clay worker(s) Procedure: The patient was positioned supine on [...] percutaneously, with a 21-gauge needle, into the clay worker vein under ultrasound guidance. The needle was [...] percutaneously, with a 21-gauge needle, into the clay worker vein under ultrasound guidance. The needle was [...] percutaneously, with a 21-gauge needle, into the clay worker vein under ultrasound guidance. The needle was [...] Freed MD on 09/25/2022 at 10:14 Normal [facility] VC CONSULT FOLLOWUPon 2021 VC CONSULT FOLLOWUP Patient: PEDRO HERNANDEZ Exam Date: 09/09/2022 : 1960 Gender:F Ordering : DR ANNALISE FREED M.D. Admission #: [id number] Family : Order #: [id number] CLICK HERE TO VIEW EXAM RADIOLOGY REPORT [...] Freed MD on 09/09/2022 at 10:50 Normal [facility] VC EXT VENOUS RT LIMITEDon 1 VC EXT VENOUS RT LIMITED Patient: NORBERTO HERNANDEZ Exam Date: 09/09/2022 : 1960 Gender:F Ordering : DR ANNALISE FREED M.D. Admission #: [id number] Family : Order #: [id number] CLICK HERE TO VIEW EXAM RADIOLOGY REPORT [...] Freed MD on 09/09/2022 at 10:02 Normal [facility] VC ENDOVENOUS ABL 1ST V RTon 09-04-2022 VC ENDOVENOUS ABL 1ST V RT Patient: NORBERTO HERNANDEZ Exam Date: 09/04/2022 : 1960 Gender:F Ordering : DR ANNALISE FREED M.D. Admission #: [id number] Family : Order #: [id number] CLICK HERE TO VIEW EXAM RADIOLOGY REPORT PROCEDURE: VEIN CENTER ENDOVENOUS ABLATION FIRST VEIN RIGHT GREAT SAPHENOUS VEIN COMPARISON: None. INDICATIONS: Pain co-occurrent and due to varicose veins of bilateral legs I83.813 OPERATIVE REPORT: The risks and benefits of the procedure had been previously discussed, and were rediscussed at length. Informed written consent was obtained by and Benito Bowser assisted. Time out procedure was performed. The right [...] MD on 09/04/2022 at 10:24 Normal [facility] RSVon 08-14-2022 RSV AG Negative Normal NEGATIVE [facility] Comment on above: Performed By: #### R SV ####[facility] [address] [place], [place] [address]Up. Jacybeth Nikolay MG MAMM SCREEN 3D GREG CADon 05-29-2022 MG MAMM SCREEN 3D GREG CAD Patient: NORBERTO HERNANDEZ Exam Date: 05/29/2022 : 1960 Gender:F Ordering : DR RADHA BATES . Admission #: [id number] Family : Order #: [id number] CLICK HERE TO VIEW EXAM RADIOLOGY REPORT [...] uterine cancer at age 61. LOCATION: [facility] BREAST COMPOSITION: Heterogeneously dense,which may obscure small [...] Freed MD on 05/29/2022 at 08:51 Normal [facility] XR DEXA BONE DENSITYon 05-29 XR DEXA BONE DENSITY DEXA Bone Density S tudy CLINICAL: Evaluate bone mineral density. Postmenopausal COMPARISON: None FINDINGS: The bone density study was assessed by dual-energy x-ray absorptiometry with the Five minutes scanner. The test results are expressed in [...] by: ANNALISE HERNANDEZ Date: 2022-05-29 08:47 Normal [facility] VC COMP CONSULTATIONon 05-22 VC COMP CONSULTATION Patient: BECKY HERNANDEZ Exam Date: 05/22/2022 : 1960 Gender:F Ordering : DR ANNALISE FREED M.D. Admission #: [id number] Family : Order #: [id number] CLICK HERE TO VIEW EXAM RADIOLOGY REPORT [...] arterial disease 5. CEAP: C4a, EC, AP, NH PLAN: 1. Continued use of compression stockings [...] Schwartz M.D. on 05/22/2022 at 15:27 Normal [facility] VC VENOUS REFLUX GREG LMTon 0 05-22-2022 VC VENOUS REFLUX GREG LMT Patient: NORBERTO HERNANDEZ Exam Date: 05/22/2022 : 1960 Gender:F Ordering : DR ANNALISE FREED M.D. Admission #: [id number] Family : Order #: [id number] CLICK HERE TO VIEW EXAM RADIOLOGY REPORT [...] chronic thrombus visualized Compressibility: Normal Flow: Normal [employer] Operator: Dist/med calf 3.9mm with 0s reflux; mid/med [...] Schwartz M.D. on 05/22/2022 at 14:54 Normal [facility] Coding Summary.on 02-25-2021 Coding Summary. CODING DATE: 021 FINAL [facility] STATUS: Home (Routine DC) PAYOR: [employer] DESCRIPTION 5523 Level 3 Imaging without [...] CphT Date Saved: 02/25/2021 12:07 pm Normal [facility] LE Venous Duplex Insuffic iency Bilaton [...] None. Mid calf: Diameter not visualized Normal [facility] Consent for Treatmenton 01-27 Consent for Treatment [id number]#1.00C D:127 Normal [facility] RAD - Ultrasound Impressiono n 02-14-2021 RAD - Ultrasound Impression [id number]#1.00C D:127 Normal [facility] Screenson 02-06-2021 Screens [id number] D:127 Normal [facility] Ambulatory Clinical Summaryo n 02-05-2021 Ambulatory Clinical Summary {[id number]}CD:[id number] Normal [facility] General Surgery Office/Clini c Noteon [...] Family History Aneurysm: Mother. COPD: Father. Normal [facility] Comment on above: Result Comment: Elec tronically Signed By: Vaishali ESCOBEDO MD\.br\Date and Time Signed: 02/05/21 12:06 EST Retail - Clinical Noteon Retail - Clinical Note [id number]#1.00C D:127 Normal [facility] Vital Signs Date Time Vital Sign Value Performing Clinician Faci lity 01-22-2025 12:00-0500 Body height 165.1 cm [facility] 01-22-2025 12:00-0500 Body mass index (BMI) [Ratio] 34.1 kg/m2 [facility] 01-22-2025 12:00-0500 Body weight 93.04 kg [facility] 01-22-2025 12:00-0500 Diastolic blood pressure 92 mm[Hg] [facility] 01-22-2025 12:00-0500 Heart rate 68 /min [facility] 01-22-2025 12:00-0500 Respiratory rate 12 /min [facility] 01-22-2025 12:00-0500 Systolic blood pressure 161 mm[Hg] [facility] 08-30-2024 10:53-0400 Body mass index (BMI) [Ratio] 33.4 kg/m2 [facility] 08-30-2024 10:53-0400 Diastolic blood pressure 80 mm[Hg] [facility] 08-30-2024 10:53-0400 Systolic blood pressure 130 mm[Hg] [facility] 08-30-2024 10:33-0400 Body height 165.1 cm [facility] 08-30-2024 10:33-0400 Body weight 91.17 kg [facility] 08-30-2024 10:33-0400 Heart rate 61 /min [facility] 08-30-2024 10:33-0400 Respiratory rate 12 /min [facility] 08-05-2022 08:36-0400 Body height 165.1 cm DO Jayy Ball Work Phone: [facility] 08-05-2022 08:36-0400 Body mass index (BMI) [Ratio] 29.9 kg/m2 DO Jayy Ball Work Phone: [facility] 08-05-2022 08:36-0400 Body weight 81.64 kg DO Jayy Ball Work Phone: [facility] 08-05-2022 08:10-0400 Body temperature 97.9 [degF] DO Jayy Ball Work Phone: [facility] 08-05-2022 08:10-0400 Diastolic blood pressure 90 mm[Hg] DO Jayy Ball Work Phone: [facility] 08-05-2022 08:10-0400 Heart rate 68 /min DO Jayy Ball Work Phone: [facility] 08-05-2022 08:10-0400 Respiratory rate 20 /min DO Jayy Ball Work Phone: [facility] 08-05-2022 08:10-0400 Systolic blood pressure 150 mm[Hg] DO Jayy Cordoba Work Phone: [facility] Encounters Encounter Date Encounter Type Care Provider Facility Start: 01-22-2025 End: 01-22-2025 ambulatory [facility] Work Phone: Start: 01-22-2025 End: 01-22-2025 Patient encounter procedure [facility] Work Phone: Start: 08-30-2024 End: 08-30-2024 ambulatory [facility] Work Phone: Start: 08-30-2024 End: 08-30-2024 Patient encounter procedure [facility] Work Phone: Start: 01-31-2024 End: 01-31-2024 ambulatory [...] Facility:[facility] Start: 08-10-2022 End: 08-11-2022 ambulatory RADHA BOOGIE Facility:[facility] Start: 08-05-2022 End: 08-06-2022 ambulatory Nadege Yeboah Facility:[facility] Start: 08-05-2022 End: 08-05-2022 ambulatory DO Jayy Cordoba Work Phone: [facility] Work Phone: Start: 08-05-2022 End: 08-05-2022 Discharged Recurring DO Jayy Cordoba Work Phone: [facility] Start: 07-13-2022 End: 07-14-2022 ambulatory RADHA BOOGIE Facility:[facility] Start: 06-12-2022 End: 06-13-2022 ambulatory [facility] Facility:[facility] Start: 05-29-2022 End: 05-30-[address] RADHA BATES . Facility:[facility] Start: 05-22-2022 End: 05-23-[address] ANNALISE FREED Facility:[facility] Start: 05-11-2022 End: 05-12-2022 ambulatory [facility] Facility:[facility] Immunizations Immunization Date Immunization Notes Care Provider Mary bedolla 02-21-2022 COVID-19 mRNA, Comir bolivar (Pfizer) [facility] 08-26-2020 influenza virus vacc ine, unspecified formulation [facility] Payers Date Payer Category Payer Self-pay 1960 Unknown [id number] 2.16.84 0.1.623170.3.579.2.593 1960 Unknown [id number] 2.16.84 0.1.160479.3.579.2.593 1961 Unknown [id number] 2.16.84 0.1.109177.3.579.2.593 1961 Unknown [id number] 2.16.84 0.1.907729.3.579.2.593 1961 Unknown [id number] 2.16.84 0.1.254887.3.579.2.593 1961 Unknown [id number] 2.16.84 0.1.550020.3.579.2.593 1961 Unknown [id number] 2.16.84 0.1.419833.3.579.2.593 1961 Unknown [id number] 2.16.84 0.1.669037.3.579.2.593 1961 Unknown [id number] 2.16.84 0.1.569338.3.579.2.593 1961 Unknown [id number] 2.16.84 0.1.560728.3.579.2.593 1961 Unknown [id number] 2.16.84 0.1.209307.3.579.2.593 1961 Unknown [id number] 2.16.84 0.1.825632.3.579.2.593 1961 Unknown [id number] 2.16.84 0.1.097053.3.579.2.593 1961 Unknown [id number] 2.16.84 0.1.002060.3.579.2.593 1961 Unknown [id number] 2.16.84 0.1.941784.3.579.2.593 1961 Unknown [id number] 2.16.84 0.1.436122.3.579.2.593 1961 Unknown [id number] 2.16.84 0.1.332483.3.579.2.593 1961 Unknown [id number] 2.16.84 0.1.243414.3.579.2.593 1961 Unknown [id number] 2.16.84 0.1.973127.3.579.2.593 1961 Unknown [id number] 2.16.84 0.1.799090.3.579.2.593 1961 Unknown [id number] 2.16.84 0.1.858492.3.579.2.593 1961 Unknown [id number] 2.16.84 0.1.944336.3.579.2.593 1961 Unknown [id number] 2.16.84 0.1.748155.3.579.2.593 1961 Unknown [id number] 2.16.84 0.1.511671.3.579.2.593 1961 Unknown [id number] 2.16.84 0.1.287510.3.579.2.593 1961 Unknown [id number] 2.16.84 0.1.913296.3.579.2.593 1961 Unknown [id number] 2.16.84 0.1.870682.3.579.2.593 1961 Unknown [id number] 2.16.84 0.1.687825.3.579.2.593 1961 Unknown [id number] 2.16.84 0.1.538364.3.579.2.593 1961 Unknown [id number] 2.16.84 0.1.152981.3.579.2.593 1961 Unknown [id number] 2.16.84 0.1.477765.3.579.2.593 1961 Unknown [id number] 2.16.84 0.1.711197.3.579.2.593 1961 Unknown [id number] 2.16.84 0.1.064649.3.579.2.593 1961 Unknown [id number] 2.16.84 0.1.312428.3.579.2.1259 1959 Unknown [id number] Unknown [id number] 2.16.8 40.1.306613.3.579.2.531 Unknown [id number] 2.16.8 40.1.049774.3.579.2.531 Social History Date Type Detail Facility Start: 08-05-2022 End: 08-05-2022 Tobacco smoking status NHIS Never smoked tobacco (finding) [facility] Start: 1960 Sex Assigned At Female F [facility] Start: 01-22-2025 Sex Female (finding) [facility] Progress note 08-05-2022 Note Date & Type Note Facility 08-05-2022 Progress note Note Date/Time August 05, 2022 8:36am [facility] [address] [place] [address] Wound Center Provider Note Signed Patient: Norberto Hernandez MR#: [id number] : 1960 Acct:[id number] Age/Sex: 62 / F Copies to: DO Nadege Cooper APRN~ HPI Date of Visit Date of Visit: Date of Service: 08/05/2022 Time of Service: 08:27 Narrative HPI: 08/05/22 Norberto is a 62 year old female presenting to [facility] wound care program for an initial visit for eval and treatment of a left ankle area ulcer that doesappear d/t venous stasis disease. She has a long standing history with venous issues and did have surgery about 10 years ago. She was seen by [facility] and was referred to Dr. 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 Overweight chronic Venous stasis dermatitis of left lower extremity chronic Venous stasis ulcer of ankle chronic [facility] Work Phone: Evaluation note Note Date & Type Note Facility Evaluation note No assessment information availa ble [facility] Work Phone: Evaluation note Note Date & Type Note Facility Evaluation note Diagnosis Onset Date Resolution Left anterior knee pain acute January 22 11:47am Strain of knee and leg, left acute January 22 11:47am [facility] Work Phone: Summary Purpose Family History Relationship [...] Date/ Time Advance Directives No February 02 11:11am Advance Directive Response Recorded Date/ Time Advance Directives No February 02 10:11am Chief Complaint and Reason for Visit Chief Complaint Open Wound Reason for Visit Edema of left lower leg Hemosiderin pigmentation of lower extremity due to varicose veins Overweight Venous stasis dermatitis of left lower extremity Venous stasis ulcer of ankle Chief Complaint L Knee Pain Chief Complaint Admit Date left knee pain January 22, 2025 11:47am Reason for Visit Admit Date Left anterior knee pain January 22 11:47am Strain of knee and leg, left January 222024 11:47am Additional Source Comments INFORMATION SOURCE (unrecogn ized section and content) DATE CREATED AUTHOR 02/26/2021 Aram Jones [facility] DATE CREATED AUTHOR AUTHOR'S ORGANIZ ATION 08/11/2022 [facility] DATE CREATED AUTHOR AUTHOR'S ORGANIZ ATION 10/04/2022 [facility] DATE CREATED AUTHOR AUTHOR'S ORGANIZ ATION 02/04/2023 [facility] DATE CREATED AUTHOR AUTHOR'S ORGANIZ ATION 01/31/2024 [facility] [employer] Care Teams (unrecognized sec [...] August 30, 2024 End: August 30, 2024 Team Status: Inactive Member Role Status Dates Jayy Cordoba , DO Primary Care Provide r, Attending Provider Active Start: January 22, 2025 End: January 22, 2025 Goals (unrecognized section and content) Goals may be documented in a n alternate sectionGoals may be documented in an alternate sectionGoals may be documented in an [...] BE BASED ON THE PRIMARY CLINICAL RECORDS. [employer] provides no warranty or guarantee of the accuracy or completeness of information in this document.
== END 2025-02-12 09:14 | disposition home or self-care (01) ==
LOC: MRI 09:13
PROVIDERS: PCP Internal Medicine; Visit Provider Internal Medicine
DX: M25.562 Pain in left knee (principal); S83.242D Other tear of medial meniscus, current injury, left knee, subsequent encounter; M25.462 Effusion, left knee; M71.22 Synovial cyst of popliteal space [Baker], left knee; S83.242A Other tear of medial meniscus, current injury, left knee, initial encounter
CPT/HCPCS: 73721

== ENCOUNTER 2025-02-26 14:57 | Outpatient (REF) | payer OTHER, SELFPAY ==
--- OUTSIDE RECORDS SUMMARY | 2025-02-26 15:28 | XMS_ITS | CCD ---
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 Name Role Phone Nadege Yeboah Attending Unavailable Obinna, Nadege Admitting Unavailable Adalid, Jayy Primary Care Unavailable TRINO Yeboah Attending Provider DO Jayy Cordoba Primary Care Provider [phone] RADHA BOOGIE Admitting Unavailable RADHA BOOGIE Attending [...] Unavailable WEST, DR ANNALISE Short Consulting Unavailable GERARDO ., DR GARCIA Admitting Unavailable GERARDO ., DR GARCIA Attending Unavailable BALL, DR IRAHETA Primary Care Unavailable WEST, DR ANNALISE Short Consulting Unavailable GERARDO ., DR GARCIA Consulting Unavailable PETE, ANNALISE Kim Unavailable ABDIAZIZ, DR ANNALISE Short Admlorna Unavailable WEST, DR ANNALISE Short Attending Unavailable BALL, DR IRAHETA Primary Care Unavailable WEST, DR ANNALISE Short Consulting Unavailable ALMITAEBPARISA, DR J CARLOS Ruiz Consulting Unavailable ABDIAZIZ, [...] ZIEBER, DR J CARLOS Ruiz Consulting Unavailable CHUYITA, RADHA Lucero Consulting Unavailable CHUYITA, RADHA Lucero Admitting Unavailable CHUYITA, RADHA Lucero Attending Unavailable ADALID, DR IRAHETA Primary Care Unavailable GERARDO ., DR GARCIA Admitting Unavailable GERARDO ., DR GARCIA Attending Unavailable BALL, DR IRAHETA Primary Care Unavailable GERARDO ., DR GARCIA Consulting Unavailable WEST, DR [...] Unavailable WEST, DR ANNALISE Short Consulting Unavailable Jayy Cordoba MD Primary Care Provider Jayy Cordoba DO Primary Care Provider Roger Pickett DO Attending Provider [phone] RADHA CARRILLO Attending Unavailable Allergies Allergy Classification Reported Allergen(s) Allergy Type Date of Onset Reaction(s) Facility (3 sources) Sulfonamides (Antibiotic) Drug allergy (disorder) 2 [facility] (1 source) Sulfonamides (Antibiotic) Drug allergy (disorder) 4 [facility] (3 sources) Sulfamethoxazole / Trimethoprim Drug Allergy 4 [facility] (3 sources) Sulfonamides (Antibiotic) Drug Allergy 4 [facility] Healthcare Work Phone: Medications Current Medications Medication Drug Class(es) Dates Sig (Normalized) Sig (Original) glucosamine sulfate 500 mg oral tablet (1 source) Start: 02-26-2025 take 1 tablet by mouth once daily Glucosamine Sulfate (Glucosamine) 500 mg tablet Active 500 MG PO Daily February 26, 2025 12:00am administer with a meal Completed/Discontinued Medications Medication Drug Class(es) Dates Sig (Normalized) Sig (Original) clobetasol propionate 0.0005 mg/mg topical ointment (6 sources) Corticosteroid Start: 08-30-2024 End: 02-26-2025 Clobetasol 0.05 % ointment Discontinued 1 [facility] TOPICAL Twice daily as needed for rash August 30, 2024 12:00am February 26, 2025 10:43am Start: 01-31-2024 clobetasol (Te movate) 0.05 % cream Indications: Vaginal itching , Yeast infection Apply pea size amount to affected area twice a day for 2 weeks and as needed after 2 weeks. 45 g 01/31/2024 Active Problems Active Problems Problem Classification Problem Date [...] [ENC SCREENING HUMAN PAPILLOMAVIRUS] Onset: 3 Episodic Joint disorders and dislocations; trauma-related (4 sources) Acute meniscal tear, medial; Translations: [Other tear of medial meniscus, current injury, left knee, initial encounter] 02-26-2025 Episodic Osteoporosis (1 source) Age-related osteoporosis without [...] Episodic Other diseases of veins and lymphatics (3 sources) Venous insufficiency of leg; Translations: [Venous insufficiency (chronic) (peripheral)] 02-03-2024 Episodic Other non-traumatic joint disorders (2 sources) Anterior knee pain; Translations: [Pain in left knee] 08-30-2024 Episodic Other non-traumatic joint disorders (3 sources) Pain in left knee; Translations: [Pain in joint, lower leg] 01-22-2025 Episodic Other nutritional; endocrine; and metabolic disorders (1 source) Obesity, unspecified; Translations: [OBESITY UNSPECIFIED] Onset: 2 Chronic Other nutritional; endocrine; and metabolic disorders (3 sources) Overweight; Translations: [Overweight] Onset: 2 08-05-2022 Episodic Other nutritional; endocrine; and metabolic disorders (4 sources) Overweight; Translations: [Overweight] 08-20-2022 Episodic Other screening for suspected conditions (not mental disorders or infectious disease) (10 sources) Encounter for screening for malignant neoplasm of cervix; Translations: [Encounter for screening mammogram for malignant neoplasm of breast] Onset: 2 Episodic Other skin disorders (3 sources) Other specified disorders of pigmentation; Translations: [Dyschromia, unspecified] Onset: 2 08-05-2022 Episodic Other skin disorders (4 sources) Hemosiderin pigmentation of lower limb due to varicose veins of lower limb; Translations: [Other specified disorders of pigmentation] 08-20-2022 Episodic Other skin disorders (4 sources) Corns and callosities; Translations: [CORNS AND CALLOSITIES] Onset: 2 Episodic Other skin disorders (3 sources) Vesicular eczema; Translations: [Dyshidrosis [pompholyx]] 08-30-2024 [...] lower leg; Translations: [Localized edema] 08-20-2022 Episodic Residual codes; unclassified (2 sources) Postmenopausal state; Translations: [Asymptomatic menopausal state] 02-26-2025 Episodic Sprains and strains (4 sources) Strain of muscle of lower limb; [...] Test Name Value Interpretation Reference Range Facility Cytology Cervical or vaginal smear or scraping studyOrdered By: Radha Bobo on 01-31-2024 [facility] PAP ACOG PANEL 2: 30 to 65on 02-02-2023 . . Normal [facility] Comment on above: Result Comment: Perf ormed at: WB Performed By: #### [id number] ####[facility] [address] [place], [place] [address]TiRoxie Link Age Gdln ACOG Testing 30-65 [facility] Comment on above: Performed By: #### 4 [id number] ####[facility] [address] [place] [address]DrRoxie Link DIAGNOSIS: Comment Normal [facility] Comment on above: Result Comment: NEGA TIVE FOR INTRAEPITHELIAL LESION OR MALIGNANCY. Performed at: WB Performed By: #### 4 [id number] ####[facility] [address] [place] [address]DrRoxie Link HPV Aptima Negative Normal Negative [facility] Comment on above: Result Comment: This nucleic acid amplification test detects fourteen high-risk HPV types (16,18,31,33,35,39,45,51,52,56,58,59,66,68) without differentiation. Performed at: =G Performed By: #### 4 [id number] ####[facility] [address] [place], [place] [address]DrRoxie Link HPV Genotype Reflex Comment Normal [facility] Comment on above: Result Comment: Crit eria not met, HPV Genotype not performed. Performed at: WB Performed By: #### 4 [id number] ####[facility] [address] [place], [place] [address]DrRoxie Link Methodology: Comment Normal [facility] Comment on above: Result Comment: This liquid based ThinPrep(R) pap test was screened with the use of an image guided system. Performed at: WB Performed By: #### 4 [id number] ####[facility] [address] [place], [place] [address]DrRoxie Link Note: Comment Normal [facility] Comment on above: Result Comment: The Pap smear is a screening test designed to aid in the detection of premalignant and malignant conditions of the uterine cervix. It is not a diagnostic procedure and should not be used as the sole means of detecting cervical cancer. Both false-positive and false-negative reports do occur. . Performed at: WB Performed By: #### 4 [id number] ####[facility] [address] [place] [id number] Link Performed by: Comment Normal [facility] Comment on above: Result Comment: Maritza ica LuKacs, Farm Management Agent (ASCP) Performed at: WB Performed By: #### 4 [id number] ####[facility] [address] [place] [id number]. Edy Link Specimen adequacy: Comment Normal [facility] Comment on above: Result Comment: Sati sfactory for evaluation. Endocervical and/or squamous metaplastic cells (endocervical component) are present. Performed at: WB Performed By: #### 4 [id number] ####[facility] [address] [place], [place] [address]Cf. Edy Link VC INJ SCL MARYBETH SCUBA DIVING INSTRUCTOR VEINSon 1 VC INJ SCL MARYBETH SCUBA DIVING INSTRUCTOR VEINS Patient: NORBERTO HERNANDEZ Exam Date: 11/27/2022 : 1960 Gender:F Ordering : DR ANNALISE FREED M.D. Admission #: [id number] Family : Order #: [id number] CLICK HERE TO VIEW EXAM RADIOLOGY REPORT PROCEDURE: VEIN CENTER INJECTION SCLEROSING SOLUTION MULTIPLE VEINS SAME COMPARISON: VC INJ SCL MARYBETH SCUBA DIVING INSTRUCTOR VEINS, 11/26/2022. VC INJ SCL MARYBETH SCUBA DIVING INSTRUCTOR VEINS, 11/24/2022. INDICATIONS: Pain co-occurrent and due [...] Freed MD on 11/27/2022 at 10:34 Normal [facility] VC INJ SCL MARYBETH SCUBA DIVING INSTRUCTOR VEINSon 1 VC INJ SCL MARYBETH SCUBA DIVING INSTRUCTOR VEINS Patient: NORBERTO HERNANDEZ Exam Date: 11/26/2022 : 1960 Gender:F Ordering : DR ANNALISE FREED M.D. Admission #: [id number] Family : Order #: [id number] CLICK HERE TO VIEW EXAM RADIOLOGY REPORT PROCEDURE: VEIN CENTER INJECTION SCLEROSING SOLUTION MULTIPLE VEINS SAME COMPARISON: VC INJ SCL MARYBETH SCUBA DIVING INSTRUCTOR VEINS, 11/24/2022. INDICATIONS: Pain co-occurrent and due [...] Freed MD on 11/26/2022 at 10:04 Normal [facility] VC CONSULT FOLLOWUPon 2021 VC CONSULT FOLLOWUP Patient: PEDRO HERNANDEZ Exam Date: 11/25/2022 : 1960 Gender:F Ordering : DR ANNALISE FREED M.D. Admission #: [id number] Family : Order #: [id number] CLICK HERE TO VIEW EXAM RADIOLOGY REPORT [...] Freed MD on 11/25/2022 at 15:34 Normal [facility] VC EXT VENOUS RT LIMITEDon 1 01-26-2022 VC EXT VENOUS RT LIMITED Patient: NORBERTO HERNANDEZ. Exam Date: 11/25/2022 : 1960 Gender:F Ordering : DR ANNALISE FREED M.D. Admission #: [id number] Family : Order #: [id number] CLICK HERE TO VIEW EXAM RADIOLOGY REPORT [...] right leg. *Exam performed in accordance with [facility] practice guidelines- Peripheral venous ultrasound, February 22, 2010. CONCLUSION: Post ablation occlusion treated right leg varicose veins. No residual incompetent varicose veins are observed Dictated by: Annalise Freed MD on 11/25/2022 at 09:51 Approved by: Annalise Freed MD on 11/25/2022 at 09:51 Normal [facility] VC INJ SCL MARYBETH SCUBA DIVING INSTRUCTOR VEINSon 1 01-25-2022 VC INJ SCL MARYBETH SCUBA DIVING INSTRUCTOR VEINS Patient: NORBERTO HERNANDEZ. Exam Date: 11/24/2022 : 1960 Gender:F Ordering : DR ANNALISE FREED M.D. Admission #: [id number] Family : Order #: [id number] CLICK HERE TO VIEW EXAM RADIOLOGY REPORT [...] Annalise Freed MD on 11/24/2022 at 11:04 [facility] VC INJ FOAM SCLERO W US MLTI on 11-19-2022 VC INJ FOAM SCLERO W US MLTI Patient: NORBERTO HERNANDEZ Exam Date: 11/19/2022 : 1960 Gender:F Ordering : DR ANNALISE FREED M.D. Admission #: [id number] Family : Order #: [id number] CLICK HERE TO VIEW EXAM RADIOLOGY REPORT [...] Schwartz M.D. on 11/19/2022 at 10:04 Normal [facility] VC CONSULT FOLLOWUPon 2021 VC CONSULT FOLLOWUP Patient: PEDRO HERNANDEZ Exam Date: 11/16/2022 : 1960 Gender:F Ordering : DR ANNALISE FREED M.D. Admission #: [id number] Family : Order #: [id number] CLICK HERE TO VIEW EXAM RADIOLOGY REPORT [...] Schwartz M.D. on 11/16/2022 at 11:21 Normal [facility] VC EXT VENOUS LT LIMITEDon 1 01-17-2022 VC EXT VENOUS LT LIMITED Patient: NORBERTO HERNANDEZ Exam Date: 11/16/2022 : 1960 Gender:F Ordering : DR ANNALISE FREED M.D. Admission #: [id number] Family : Order #: [id number] CLICK HERE TO VIEW EXAM RADIOLOGY REPORT [...] Schwartz M.D. on 11/16/2022 at 11:17 Normal [facility] VC INJ FOAM SCLERO W US MLTI on 11-13-2022 VC INJ FOAM SCLERO W US MLTI Patient: NORBERTO HERNANDEZ Exam Date: 11/13/2022 : 1960 Gender:F Ordering : DR ANNALISE FREED M.D. Admission #: [id number] Family : Order #: [id number] CLICK HERE TO VIEW EXAM RADIOLOGY REPORT [...] pat (more content not included)... Normal [facility] VC CONSULT FOLLOWUPon 2021 VC CONSULT FOLLOWUP Patient: PEDRO HERNANDEZ Exam Date: 11/12/2022 : 1960 Gender:F Ordering : DR ANNALISE FREED M.D. Admission #: [id number] Family : Order #: [id number] CLICK HERE [...] MD on 11/12/2022 at 12:40 Normal [facility] VC EXT VENOUS GREG LIMITEDon 11-12-2022 VC EXT VENOUS GREG LIMITED Patient: NORBERTO HERNANDEZ Exam Date: 11/12/2022 : 1960 Gender:F Ordering : DR ANNALISE FREED M.D. Admission #: [id number] Family : Order #: [id number] CLICK HERE TO VIEW EXAM RADIOLOGY REPORT [...] Freed MD on 11/12/2022 at 12:38 Normal [facility] VC INJ FOAM SCLERO W US MLTI on 11-09-2022 VC INJ FOAM SCLERO W US MLTI Patient: NORBERTO HERNANDEZ Exam Date: 11/09/2022 : 1960 Gender:F Ordering : DR ANNALISE FREED M.D. Admission #: [id number] Family : Order #: [id number] CLICK HERE TO VIEW EXAM RADIOLOGY REPORT [...] o (more content not included)... Normal [facility] VC INJ FOAM SCLERO W US MLTI on 11-06-2022 VC INJ FOAM SCLERO W US MLTI Patient: NORBERTO HERNANDEZ Exam Date: 11/06/2022 : 1960 Gender:F Ordering : DR ANNALISE FREED M.D. Admission #: [id number] Family : Order #: [id number] CLICK HERE TO VIEW EXAM RADIOLOGY REPORT [...] right lower leg above a patent incompetent field contractor vein. 8 mL aliquot of Varithena(r) was [...] adjacent (more content not included)... Normal [facility] VC CONSULT FOLLOWUPon 2021 VC CONSULT FOLLOWUP Patient: PEDRO HERNANDEZ Exam Date: 11/02/2022 : 1960 Gender:F Ordering : DR ANNALISE FREED M.D. Admission #: [id number] Family : Order #: [id number] CLICK HERE TO VIEW EXAM RADIOLOGY REPORT [...] Annalise Freed MD on 11/02/2022 at 10:28 [facility] VC EXT VENOUS LT LIMITEDon 1 01-03-2022 VC EXT VENOUS LT LIMITED Patient: NORBERTO HERNANDEZ Exam Date: 11/02/2022 : 1960 Gender:F Ordering : DR ANNALISE FREED M.D. Admission #: [id number] Family : Order #: [id number] CLICK HERE TO VIEW EXAM RADIOLOGY REPORT [...] Freed MD on 11/02/2022 at 10:05 Normal [facility] VC INJ FOAM SCLERO W US MLTI on 10-28-2022 VC INJ FOAM SCLERO W US MLTI Patient: NORBERTO HERNANDEZ Exam Date: 10/28/2022 : 1960 Gender:F Ordering : DR ANNALISE FREED M.D. Admission #: [id number] Family : Order #: [id number] CLICK HERE TO VIEW EXAM RADIOLOGY REPORT [...] Schwartz M.D. on 10/28/2022 at 13:22 Normal [facility] VC CONSULT FOLLOWUPon 2021 VC CONSULT FOLLOWUP Patient: PEDRO HERNANDEZ Exam Date: 10/26/2022 : 1960 Gender:F Ordering : DR ANNALISE FREED M.D. Admission #: [id number] Family : Order #: [id number] CLICK HERE TO VIEW EXAM RADIOLOGY REPORT [...] Schwartz M.D. on 10/26/2022 at 10:33 Normal [facility] VC EXT VENOUS LT LIMITEDon 1 12-26-2021 VC EXT VENOUS LT LIMITED Patient: NORBERTO HERNANDEZ Exam Date: 10/26/2022 : 1960 Gender:F Ordering : DR ANNALISE FREED M.D. Admission #: [id number] Family : Order #: [id number] CLICK HERE TO VIEW EXAM RADIOLOGY REPORT [...] Schwartz M.D. on 10/26/2022 at 09:59 Normal [facility] VC INJ FOAM SCLERO W US MLTI on 10-19-2022 VC INJ FOAM SCLERO W US MLTI Patient: NORBERTO HERNANDEZ Exam Date: 10/19/2022 : 1960 Gender:F Ordering : DR ANNALISE FREED M.D. Admission #: [id number] Family : Order #: [id number] CLICK HERE TO VIEW EXAM RADIOLOGY REPORT [...] varic (more content not included)... Normal [facility] VC CONSULT FOLLOWUPon 2021 VC CONSULT FOLLOWUP Patient: PEDRO HERNANDEZ Exam Date: 10/12/2022 : 1960 Gender:F Ordering : DR ANNALISE FREED M.D. Admission #: [id number] Family : Order #: [id number] CLICK HERE TO VIEW EXAM RADIOLOGY REPORT [...] Freed MD on 10/12/2022 at 09:15 Normal [facility] VC EXT VENOUS LT LIMITEDon 1 12-12-2021 VC EXT VENOUS LT LIMITED Patient: NORBERTO HERNANDEZ Exam Date: 10/12/2022 : 1960 Gender:F Ordering : DR ANNALISE FREED M.D. Admission #: [id number] Family : Order #: [id number] CLICK HERE TO VIEW EXAM RADIOLOGY REPORT [...] Freed MD on 10/12/2022 at 09:14 Normal [facility] VC INJ FOAM SCLERO W US MLTI on 10-09-2022 VC INJ FOAM SCLERO W US MLTI Patient: NORBERTO HERNANDEZ. Exam Date: 10/09/2022 : 1960 Gender:F Ordering : DR ANNALISE FREED M.D. Admission #: [id number] Family : Order #: [id number] CLICK HERE TO VIEW EXAM RADIOLOGY REPORT [...] to (more content not included)... Normal [facility] VC CONSULT FOLLOWUPon 2021 VC CONSULT FOLLOWUP Patient: PEDRO HERNANDEZ Exam Date: 09/30/2022 : 1960 Gender:F Ordering : DR ANNALISE FREED M.D. Admission #: [id number] Family : Order #: [id number] CLICK HERE TO VIEW EXAM RADIOLOGY REPORT [...] Freed MD on 09/30/2022 at 12:34 Normal [facility] VC EXT VENOUS LT LIMITEDon 1 11-30-2021 VC EXT VENOUS LT LIMITED Patient: NORBERTO HERNANDEZ Exam Date: 09/30/2022 : 1960 Gender:F Ordering : DR ANNALISE FREED M.D. Admission #: [id number] Family : Order #: [id number] CLICK HERE TO VIEW EXAM RADIOLOGY REPORT [...] Freed MD on 09/30/2022 at 11:55 Normal [facility] VC ENDOVENOUS ABL PERFORATIN G LTon 09-25-2022 VC ENDOVENOUS ABL PERFORATING LT Patient: NORBERTO HERNANDEZ Exam Date: 09/25/2022 : 1960 Gender:F Ordering : DR ANNALISE FREED M.D. Admission #: [id number] Family : Order #: [id number] CLICK HERE TO VIEW EXAM RADIOLOGY REPORT PROCEDURE: VEIN MELBETA ENDOVENOUS ABLATION FOR VEIN LEFT ANTERIOR ACCESSORY SAPHENOUS VEIN COMPARISON: None. INDICATIONS: Phlebitis of superficial veins of lower extremity I83.813 OPERATIVE REPORT: Diagnosis: Superficial venous reflux, incompetent perforating veins Procedure: Endovenous laser ablation of the left field contractor(s) Procedure: The patient was positioned supine on [...] percutaneously, with a 21-gauge needle, into the field contractor vein under ultrasound guidance. The needle was [...] percutaneously, with a 21-gauge needle, into the field contractor vein under ultrasound guidance. The needle was [...] percutaneously, with a 21-gauge needle, into the field contractor vein under ultrasound guidance. The needle was [...] Freed MD on 09/25/2022 at 10:14 Normal [facility] VC CONSULT FOLLOWUPon 2021 VC CONSULT FOLLOWUP Patient: PEDRO HERNANDEZ Exam Date: 09/09/2022 : 1960 Gender:F Ordering : DR ANNALISE FREED M.D. Admission #: [id number] Family : Order #: [id number] CLICK HERE TO VIEW EXAM RADIOLOGY REPORT [...] Freed MD on 09/09/2022 at 10:50 Normal [facility] VC EXT VENOUS RT LIMITEDon 1 VC EXT VENOUS RT LIMITED Patient: NORBERTO HERNANDEZ Exam Date: 09/09/2022 : 1960 Gender:F Ordering : DR ANNALISE FREED M.D. Admission #: [id number] Family : Order #: [id number] CLICK HERE TO VIEW EXAM RADIOLOGY REPORT [...] Freed MD on 09/09/2022 at 10:02 Normal [facility] VC ENDOVENOUS ABL 1ST V RTon 09-04-2022 VC ENDOVENOUS ABL 1ST V RT Patient: NORBERTO HERNANDEZ Exam Date: 09/04/2022 : 1960 Gender:F Ordering : DR ANNALISE FREED M.D. Admission #: [id number] Family : Order #: [id number] CLICK HERE TO VIEW EXAM RADIOLOGY REPORT [...] MD on 09/04/2022 at 10:24 Normal [facility] RSVon 08-14-2022 RSV AG Negative Normal NEGATIVE [facility] Comment on above: Performed By: #### R SV ####[facility] [address] [place], [place] [address]Xv. Edy Link MG MAMM SCREEN 3D GREG CADon 05-29-2022 MG MAMM SCREEN 3D GREG CAD Patient: NORBERTO HERNANDEZ Exam Date: 05/29/2022 : 1960 Gender:F Ordering : DR RADHA CARRILLO . Admission #: [id number] Family : Order #: [id number] CLICK HERE TO VIEW EXAM RADIOLOGY REPORT [...] uterine cancer at age 61. LOCATION: [facility] BREAST COMPOSITION: Heterogeneously dense,which may obscure [...] Freed MD on 05/29/2022 at 08:51 Normal [facility] XR DEXA BONE DENSITYon 05-29 XR DEXA BONE DENSITY DEXA Bone Density Study CLINICAL: Evaluate bone mineral density. Postmenopausal COMPARISON: None FINDINGS: The bone density study was assessed by dual-energy x-ray absorptiometry with the [employer] scanner. The test results are expressed in [...] by: ANNALISE HERNANDEZ Date: 2022-05-29 08:47 Normal [facility] VC COMP CONSULTATIONon 05-22 VC COMP CONSULTATION Patient: NORBERTO HERNANDEZ Exam Date: 05/22/2022 : 1960 Gender:F Ordering : DR ANNALISE FREED M.D. Admission #: [id number] Family : Order #: [id number] CLICK HERE TO VIEW EXAM RADIOLOGY REPORT [...] arterial disease 5. CEAP: C4a, EC, AP, [place] PLAN: 1. Continued use of compression stockings [...] Schwartz M.D. on 05/22/2022 at 15:27 Normal [facility] VC VENOUS REFLUX GREG LMTon 0 05-22-2022 VC VENOUS REFLUX GREG LMT Patient: NORBERTO HERNANDEZ Exam Date: 05/22/2022 : 1960 Gender:F Ordering : DR ANNALISE FREED M.D. 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 on 05/22/2022 at 14:54 Normal [facility] Coding Summary.on 02-25-2021 Coding Summary. CODING DATE: [facility] STATUS: Home (Routine DC) PAYOR: [facility] [place] [employer] DESCRIPTION 5523 Level 3 Imaging without [...] CphT Date Saved: 02/25/2021 12:07 pm Normal [facility] LE Venous Duplex Insuffic iency Bilaton [...] None. Mid calf: Diameter not visualized Normal [facility] Consent for Treatmenton 01-27 Consent for Treatment [id number]#1.00C D:127 Normal [facility] RAD - Ultrasound Impressiono n 02-14-2021 RAD - Ultrasound Impression [id number]#1.00C D:127 Normal [facility] Screenson 02-06-2021 Screens [id number]#1.00C D:127 Normal [facility] Ambulatory Clinical Summaryo n 02-05-2021 Ambulatory Clinical Summary {[id number]- 7c}CD:[id number] Normal [facility] General Surgery Office/Clini c Noteon 02-05-2021 [...] lower extremity with inflammation) As above. Ordered: LE Venous Duplex Insufficiency Bilat Follow-up With When Contact Information Vaishali ESCOBEDO MD Additional Instructions: [facility] GREG STUDY CALL RESULTS HOSE RX GIVEN [...] Family History Aneurysm: Mother. COPD: Father. Normal [facility] Comment on above: Result Comment: Elec tronically Signed By: FANNY FUENTES, Vaishali Patrick\.br\Date and Time Signed: 02/05/21 12:06 EST Retail - Clinical Noteon Retail - Clinical Note [id number]#1.00C D:127 Normal [facility] Vital Signs Date Time Vital Sign Value Performing Clinician Facility 02-26-2025 10:47-0400 Diastolic blood pressure 92 mm[Hg] VivaRay DO Work Phone: [facility] 02-26-2025 10:47-0400 Systolic blood pressure 178 mm[Hg] Jayy Ball DO Work Phone: [facility] 02-26-2025 10:44-0400 Body height 165.1 cm VivaRay DO Work Phone: [facility] 02-26-2025 10:44-0400 Body mass index (BMI) [Ratio] 34.1 kg/m2 Jayy Ball DO Work Phone: [facility] 02-26-2025 10:44-0400 Body weight 92.98 kg Jayy Ball DO Work Phone: [facility] [facility] 02-26-2025 08:41-0400 Body mass index (BMI) [Ratio] 33.22 kg/m2 Radha Carrillo DO Work Phone: [facility] 02-26-2025 08:41-0400 Body weight 93.35 kg Radha Gerardo DO Work Phone: [facility] 02-26-2025 08:41-0400 Diastolic blood pressure 110 mm[Hg] Radha Gerardo DO Work Phone: [facility] 02-26-2025 08:41-0400 Systolic blood pressure 130 mm[Hg] Radha Gerardo DO Work Phone: [facility] 01-22-2025 12:00-0500 Body height 165.1 cm [facility] 01-22-2025 12:00-0500 Body mass index (BMI) [Ratio] 34.1 kg/m2 [facility] 01-22-2025 12:00-0500 Body weight 93.04 kg [facility] 01-22-2025 12:00-0500 Diastolic blood pressure 92 mm[Hg] [facility] 01-22-2025 12:00-0500 Heart rate 68 /min [facility] 01-22-2025 12:00-0500 Respiratory rate 12 /min [facility] 01-22-2025 12:00-0500 Systolic blood pressure 161 mm[Hg] [facility] 08-30-2024 10:53-0400 Body mass index (BMI) [Ratio] 33.4 kg/m2 [facility] 08-30-2024 10:53-0400 Diastolic blood pressure 80 mm[Hg] [facility] 08-30-2024 10:53-0400 Systolic blood pressure 130 mm[Hg] [facility] 08-30-2024 10:33-0400 Body height 165.1 cm [facility] 08-30-2024 10:33-0400 Body weight 91.17 kg [facility] 08-30-2024 10:33-0400 Heart rate 61 /min [facility] 08-30-2024 10:33-0400 Respiratory rate 12 /min [facility] 08-05-2022 08:36-0400 Body height 165.1 cm DO Jayy Ball Work Phone: [facility] 08-05-2022 08:36-0400 Body mass index (BMI) [Ratio] 29.9 kg/m2 DO Jayy Ball Work Phone: [facility] 08-05-2022 08:36-0400 Body weight 81.64 kg DO Jayy Ball Work Phone: [facility] 08-05-2022 08:10-0400 Body temperature 97.9 [degF] DO Jayy Ball Work Phone: [facility] 08-05-2022 08:10-0400 Diastolic blood pressure 90 mm[Hg] DO Jayy Ball Work Phone: [facility] 08-05-2022 08:10-0400 Heart rate 68 /min DO Jayy Ball Work Phone: [facility] 08-05-2022 08:10-0400 Respiratory rate 20 /min DO Jayy Ball Work Phone: [facility] 08-05-2022 08:10-0400 Systolic blood pressure 150 mm[Hg] DO Jayy Ball Work Phone: [facility] Encounters Encounter Date Encounter Type Care Provider Facility Start: 02-26-2025 End: 02-26-2025 Bamboo flowsheet Radha Gerardo DO Work Phone: [facility] Start: 02-26-2025 End: 02-26-2025 Bamboo flowsheet Radha Gerardo DO Work Phone: [facility] Start: 02-26-2025 End: 02-26-2025 ambulatory Jayy Ball DO Work Phone: [facility] Work Phone: Start: 02-26-2025 End: 02-26-2025 Patient encounter procedure Jayy Ball DO Work Phone: [facility] Work Phone: Start: 02-26-2025 End: 02-26-2025 Patient encounter procedure Radha Gerardo DO Work Phone: [facility] Start: 02-26-2025 End: 02-26-2025 Periodic preventive med est patient 40-64yrs Radha Carrillo DO Work Phone: [facility] Comment on above: Well woman exam with routine gynecological exam; Encounter for screening mammogram for malignant neoplasm of breast; Postmenopausal state Start: 02-26-2025 End: 02-26-2025 ambulatory RADHA CARIRLLO Not Available Start: 01-22-2025 End: 01-22-2025 ambulatory [facility] Work Phone: Start: 01-22-2025 End: 01-22-2025 Patient encounter procedure [facility] Work Phone: Start: 08-30-2024 End: 08-30-2024 ambulatory [facility] Work Phone: Start: 08-30-2024 End: 08-30-2024 Patient encounter procedure [facility] Work Phone: Start: 01-25-2023 End: 01-25-[address] RADHA CARRILLO . Facility:[facility] Start: 11-27-2022 End: 11-28-2022 ambulatory [...] Facility:[facility] Start: 08-10-2022 End: 08-11-2022 ambulatory RADHA Lucero [facility] Facility:[facility]1 Start: 08-05-2022 End: 08-06-2022 ambulatory Nadege Yeboah Facility:[facility] Start: 08-05-2022 End: 08-05-2022 ambulatory DO Jayy Cordoba Work Phone: [facility] Work Phone: Start: 08-05-2022 End: 08-05-2022 Discharged Recurring DO Jayy Cordoba Work Phone: [facility] Start: 07-13-2022 End: 07-14-2022 ambulatory RADHA Lucero [facility] Facility:[facility] Start: 06-12-2022 End: 06-13-2022 ambulatory RADHA Jazmine [facility] Facility:[facility]1 Start: 05-29-2022 End: 05-30-[address] RADHA CARRILLO . Facility:[facility] Start: 05-22-2022 End: 05-23-[address] ANNALISE FREED Facility:[facility] Start: 05-11-2022 End: 05-12-2022 ambulatory RADHA Jazmine [facility] Facility:[facility]1 Procedures Date Procedure Procedure Detail Performing Clinician Start: 10-16-2024 Mammography Radha fink DO Work Phone: Start: 01-31-2024 Microscopic observat ion [Identifier] in Cervix by Cyto stain Radha Carrillo DO Work Phone: Start: 01-31-2024 Cytp cerv/vag auto t hin layer prep mnl screen Radha Carrillo DO Work Phone: Plan of Treatment Date Care Activity Detail Author Start: 01-30-2029 Screening for malignant neoplasm of cervix [facility] Start: 03-08-2027 Screening for malignant neoplasm of colon [facility] Start: 03-04-2026 End: 03-04-2026 Patient encounter procedure 03/04/2026 9:00 AM EDT Office Visit [facility] [address] [place] [id number] Radha Carrillo, DO [address] [place] [address] [facility] Start: 10-16-2025 Screening for malignant neoplasm of breast Mammogram [facility] Start: 02-26-2025 End: 02-26-2026 DXA Skeletal system Views for bone density DEXA bone density Imaging Routine Postmenopausal state Expected: 02/26/2025 (Approximate), Expires: 02/26/2026 [facility] Comment on above: Expected: 02/26/2025 (Approximate), Expires: 02/26/2026 Start: 02-26-2025 End: 04-28-2026 MG Breast - bilateral Screening Bilateral screening mammogram Imaging Routine Encounter for screening mammogram for malignant neoplasm of breast Expected: 02/26/2025, Expires: 04/28/2026 [facility] Work Phone: Comment on above: Expected: 02/26/2025 , Expires: 04/28/2026 Start: 02-26-2025 X-ray of both knees, three views XR knee BI 3V - NOT FOR ER USE [facility] Start: 02-26-2025 XR Knee - bilateral 3 Views [facility] Start: 02-26-2025 End: 02-26-2025 Patient encounter procedure 02/26/2025 8:40 AM EDT Office Visit [facility] [address] [place] [address] Radha Carrillo, DO [address] [place] [address] Arrived [facility] Comment on above: Arrived Start: 07-30-2024 Influenza vaccination Influenza Vacc ine (#1) [facility] Start: 1960 Screening for malignant neoplasm of colon [facility] MR Knee - left WO contrast [facility] THIN PREP TIS PAP AN D HR HPV DNA THIN PREP TIS PAP AND HR HPV DNA Pathology and Cytology Routine Well woman exam with routine gynecological exam Ordered: 02/26/2025 [facility] Comment on above: Ordered: 02/26/2025 Immunizations Immunization Date Immunization Notes Care Provider Mary bedolla 02-21-2022 COVID-19 mRNA, Comir bolivar (Pfizer) [facility] 08-26-2020 influenza virus vacc ine, unspecified formulation [facility] Payers Date Payer Category Payer Private Health Insurance [employer] [id number] 2022 Self-pay 1960 Unknown [id number] 2.16.840.1.549118.3.579.2. 593 1960 Unknown [id number] 2.16.840.1.588080.3.579.2. 593 1960 Unknown [id number] 2.16.840.1.688841.3.579.2. 593 1960 Unknown [id number] 2.16.840.1.479291.3.579.2. 593 1961 Unknown [id number] 2.16.840.1.634008.3.579.2. 593 1961 Unknown [id number] 2.16.840.1.423575.3.579.2. 593 1960 Unknown [id number] 2.16.840.1.553952.3.579.2. 593 1961 Unknown [id number] 2.16.840.1.760954.3.579.2. 593 1961 Unknown [id number] 2.16.840.1.739538.3.579.2. 593 1961 Unknown [id number] 2.16.840.1.055040.3.579.2. 593 1961 Unknown [id number] 2.16.840.1.802514.3.579.2. 593 1961 Unknown [id number] 2.16.840.1.166002.3.579.2. 593 1961 Unknown [id number] 2.16.840.1.207402.3.579.2. 593 1961 Unknown [id number] 2.16.840.1.014850.3.579.2. 593 1961 Unknown [id number] 2.16.840.1.576272.3.579.2. 593 1961 Unknown [id number] 2.16.840.1.487342.3.579.2. 593 1961 Unknown [id number] 2.16.840.1.364791.3.579.2. 593 1961 Unknown [id number] 2.16.840.1.224717.3.579.2. 593 1961 Unknown [id number] 2.16.840.1.321421.3.579.2. 593 1961 Unknown [id number] 2.16.840.1.307735.3.579.2. 593 1961 Unknown [id number] 2.16.840.1.927242.3.579.2. 593 1961 Unknown [id number] 2.16.840.1.491999.3.579.2. 593 1961 Unknown [id number] 2.16.840.1.281504.3.579.2. 593 1961 Unknown [id number] 2.16.840.1.337239.3.579.2. 593 1961 Unknown [id number] 2.16.840.1.533576.3.579.2. 593 1961 Unknown [id number] 2.16.840.1.916755.3.579.2. 593 1961 Unknown [id number] 2.16.840.1.064136.3.579.2. 593 1961 Unknown [id number] 2.16.840.1.661030.3.579.2. 593 1961 Unknown [id number] 2.16.840.1.999108.3.579.2. 593 1961 Unknown [id number] 2.16.840.1.590378.3.579.2. 593 1961 Unknown [id number] 2.16.840.1.279687.3.579.2. 593 1961 Unknown [id number] 2.16.840.1.809777.3.579.2. 593 1961 Unknown [id number] 2.16.840.1.058446.3.579.2. 593 1961 Unknown [id number] 2.16.840.1.134467.3.579.2. 1259 1959 Unknown [id number] Unknown [id number] 2.16.840.1.523605.3.579.2. 531 Unknown [id number] 2.16.840.1.666350.3.579.2. 531 Social History Date Type Detail Facility Start: 08-05-2022 End: 08-05-2022 Tobacco smoking status NHIS Never smoked tobacco (finding) [facility] Start: 1960 Sex Assigned At Female [facility] Start: 01-22-2025 End: 02-26-2025 Sex Female (finding) [facility] Start: 01-10-2024 Tobacco use and exposure Smokeless tobacco non-user [facility] Start: 01-31-2024 End: 02-26-2025 Alcoholic beverage intake Current drinker of alcohol (finding) [facility] Start: 01-10-2024 End: 02-26-2025 History of Social function [facility] Start: 01-10-2024 End: 02-26-2025 Tobacco use panel [facility] Start: 01-10-2024 Alcohol Comment occasional [facility] Start: 1960 Sex assigned at Not on file [facility] History of Present illness Narrative 02-26-2025 Flor Kingston NP - 02/26/2025 8:40 AM EDT Note Date & Type Note Facility 02-26-2025 History of Presen t illness Narrative Reason for Appointment: Patient ID: Norberto Hernandez is a 64 y.o. female who presents for Well Women Visit Patient presents today for Annual Exam. MEDICATIONS Current Outpatient Medications Medication Instructions clobetasol (Temovate) 0.05 % cream Apply pea size amount to affected area twice a day for 2 weeks and as needed after 2 weeks. ALLERGIES Allergies Allergen Reactions Sulfa Antibiotics Other Reaction(s): Unknown Sulfamethoxazole-Trimethoprim Other Reaction(s): Unknown PROBLEMS Active Ambulatory Problems Diagnosis Date Noted No Active Ambulatory Problems Resolved Ambulatory Problems Diagnosis Date Noted No Resolved Ambulatory Problems Past Medical History: Diagnosis Date Osteopenia Osteoporosis (CMS/HCC) HISTORY PAST MEDICAL HISTORY SOCIAL HISTORY Past Medical History: Diagnosis Date Osteopenia Osteoporosis (CMS/HCC) Social History Tobacco Use Smoking status: Never Smokeless tobacco: Never Substance Use Topics Alcohol use: Yes Comment: occasional Drug use: Never FAMILY HISTORY Family History Problem Relation Name Age of Onset Diabetes Mother Heart disease Father Hypertension Father Stroke Maternal Grandmother Melanoma Neg Hx SURGICAL HISTORY Past Surgical History: Procedure Laterality Date BREAST BIOPSY 2013 SECTION, LOW TRANSVERSE TOTAL ABDOMINAL HYSTERECTOMY W/ BILATERAL SALPINGOOPHORECTOMY VEIN SURGERY REVIEW OF SYSTEMS Review of Systems: Review of Systems Constitutional: Negative. HENT: Negative. Eyes: Negative. Respiratory: Negative. Cardiovascular: Negative. Gastrointestinal: Negative. Genitourinary: Negative. Musculoskeletal: Negative. Skin: Negative. Neurological: Negative. Psychiatric/Behavioral: Negative. Hematological: Negative. Endocrine: Negative. Allergic/Immunologic: Negative. OBJECTIVE Objective: Physical Exam Constitutional: Appearance: Normal appearance. She is well-developed. Genitourinary: Vulva normal. Cardiovascular: Rate and Rhythm: Normal rate and regular rhythm. Pulmonary: Effort: Pulmonary effort is normal. Breath sounds: Normal breath sounds. Abdominal: General: Bowel sounds are normal. There is no distension. Palpations: Abdomen is soft. Tenderness: There is no abdominal tenderness. There is no guarding or rebound. Musculoskeletal: General: No swelling. Normal range of motion. Right lower leg: No edema. Left lower leg: No edema. Neurological: Mental Status: She is alert and oriented to person, place, and time. Skin: General: Skin is warm and dry. Psychiatric: Mood and Affect: Mood normal. Behavior: Behavior normal. Vitals and nursing note reviewed. Exam conducted with a agricultural economics professor present. Vitals: Estimated body mass index is 33.22 kg/m as calculated from the following: Height as of 01/25/23: 5' 6 . Weight as of this encounter: 205 lb 12.8 oz. BP: (!) 130/110 No LMP recorded. Patient has had a hysterectomy. ASSESSMENT & PLAN ICD-10-CM 1. Well woman exam with routine gynecological exam Z01.419 THIN PREP TIS PAP AND HR HPV DNA 2. Encounter for screening mammogram for malignant neoplasm of breast Z12.31 Bilateral screening mammogram Bilateral screening mammogram 3. Postmenopausal state Z78.0 DEXA bone density Annual Exam: Patient presents today for an annual exam. Patient states she is doing well and has no complaints. Pap was obtained without difficulty. Orders Placed This Encounter Procedures Bilateral screening mammogram DEXA bone density Follow Up: Patient is to return in one year for annual unless needed otherwise. Documented by Flor Kingston NP on behalf of: Radha Carrillo DO documented in this encounter [facility] Evaluation note 01-22-2025 Note Date & Type Note Facility 01-22-2025 Evaluation note Diagnosis Onset Date Resolution Acute medial meniscus tear of left knee acute January 22, 2025 11:47am Left knee pain acute December 312024 11:47am Complex tear of medial meniscus of left knee acute February 26, 2025 10:21am [facility] Work Phone: Progress note 08-05-2022 Note Date & Type Note Facility 08-05-2022 Progress note Note Date/Time August 05, 2022 8:36am [facility] [address] [place] [address] Wound Center Provider Note Signed Patient: Norberto Hernandez MR#: [id number] : 1960 Acct:[id number] Age/Sex: 62 / F Copies to: DO Nadege Cooper APRN~ HPI Date of Visit Date of Visit: Date of Service: 08/05/2022 Time of Service: 08:27 Narrative HPI: 08/05/22 Norberto is a 62 year old female presenting to [facility] wound care program for an initial visit for eval and treatment of a left ankle area ulcer that doesappear d/t venous stasis disease. She has a long standing history with venous issues and did have surgery about 10 years ago. She was seen by [facility] and was referred to Dr. 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 Overweight chronic Venous stasis dermatitis of left lower extremity chronic Venous stasis ulcer of ankle chronic [facility] Work Phone: Evaluation note Note Date & Type Note Facility Evaluation note No assessment information availa ble [facility] Work Phone: Evaluation note Note Date & Type Note Facility Evaluation note Diagnosis Onset Date Resolution Left anterior knee pain acute January 22 11:47am Strain of knee and leg, left acute January 22 11:47am [facility] Work Phone: Evaluation note Note Date & Type Note Facility Evaluation note Diagnosis Well woman exam with routine gynecological exam Routine gynecological examination Encounter for screening mammogram for malignant neoplasm of breast Postmenopausal state Asymptomatic postmenopausal status (age-related) (natural) documented in this encounter [facility] Summary Purpose Family History No Family History [...] Unknown Advance Directives No Advanced Directives Records Found Advance Directive Response Recorded Date/ Time Advance [...] knee and leg, left January 222024 11:47am Chief Complaint Admit Date left knee pain January 22, 2025 11:47am CONSULT DR. CORDOBA LT KNEE PAIN, WX February 26, 2025 10:21am S83.232A - Complex tear of medial menisc [place] February 26, 2025 11:00am Reason for Visit Admit Date Acute medial meniscus tear of left knee January 22, 2025 11:47am Left knee pain January 22, 2025 11:47am Complex tear of medial meniscus of left knee February 26, 2025 10:21am Additional Source Comments INFORMATION SOURCE (unrecogn ized section and content) DATE CREATED AUTHOR 02/26/2021 Chiu Robert [facility] DATE CREATED AUTHOR AUTHOR'S ORGANIZ ATION 08/11/2022 [facility] DATE CREATED AUTHOR AUTHOR'S ORGANIZ ATION 10/04/2022 [facility] DATE CREATED AUTHOR AUTHOR'S ORGANIZ ATION 02/04/2023 [facility] DATE CREATED AUTHOR AUTHOR'S ORGANIZ ATION 02/26/2025 [facility] EPIC Care Teams (unrecognized sec tion and content) Team Status: Inactive Member Role Status Dates Nadege Yeboah APRN Attending Provider Active Jayy Cordoba DO Primary Care Provider Active Team Status: Active Member Role Status Dates Jayy Cordoba DO Primary Care Provider Active Team Status: Inactive Member Role Status Dates Jayy Cordoba DO Primary Care Provide r, Attending Provider Active Start: August 30, 2024 End: August 30, 2024 Team Status: Inactive Member Role Status Dates Jayy Cordoba DO Primary Care Provide r, Attending Provider Active Start: January 22, 2025 End: January 22, 2025 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 Relationship Specialty Start Date End Date Jayy Cordoba MD [address] [place] [address] PCP - General Internal Medicine 01/31/24 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 Relationship Specialty Start Date End Date Jayy Cordoba MD [address] [place] [address] PCP - General Internal Medicine 01/31/24 Team Status: Inactive Member Role Status Dates Jayy Cordoba DO Primary Care Provider Active Start: February 26, 2025 End: February 26, 2025 Roger Pickett DO Attending Provider Active St art: February 26, 2025 End: February 26, 2025 Team Status: Active Member Role Status Dates Jayy Cordoba DO Primary Care Provider Active Start: February 26, 2025 Roger Pickett DO Attending Provider Active St art: February 26, 2025 Goals (unrecognized section and content) Goals may be documented in a n alternate sectionGoals may be documented in an alternate sectionGoals may be documented in an alternate sectionGoals may be documented in an alternate section Reason for Visit (unrecogniz ed section and content) Reason Comments Well Women Visit FOR RECORDS PERTAINING TO PATIENTS WHO ARE [...] BE BASED ON THE PRIMARY CLINICAL RECORDS. [employer] provides no warranty or guarantee of the accuracy or completeness of information in this document.
[2025-02-28 19:09] LABS: Age Gdln ACOG Testing Note (.); HPV Aptima Negative (Negative); IGP, Aptima HPV, rfx 16/18,45 Note (.)
== END 2025-02-26 14:58 | disposition home or self-care (01) ==
LOC: LAB 14:57
PROVIDERS: PCP Internal Medicine; Visit Provider Obstetrics & Gynecology
DX: Z01.419 Encounter for gynecological examination (general) (routine) without abnormal findings (principal)
CPT/HCPCS: 88175

== ENCOUNTER 2025-10-31 09:28 | Outpatient (OUT) | payer OTHER, SELFPAY ==
--- NOTE | 2025-10-31 09:31 | MM_ITS ---
Patient Name: NORBERTO FREEMAN MR#: [id number] : 1960 Exam Date: 10/31/2025 Ordering Doctor: DR RADHA BATES . RADIOLOGY REPORT PROCEDURE: MM TOMOSYNTHESIS SCREENING BI COMPARISON: MM TOMOSYNTHESIS SCREENING BI, 10/16/2024. MM TOMOSYNTHESIS SCREENING BI, 09/01/2023. MG MAMM SCREEN 3D GREG CAD, 05/29/2022. MG MAMM GREG SCRN W CAD DIG, 05/29/2013. INDICATIONS: Screening Calculator Name NCI Breast Cancer Risk Assessment Tool 5 Year Breast Cancer Risk 1.90% Lifetime Breast Cancer Risk 7.70% Personal Breast Cancer No Personal Ovarian Cancer No Treatments None Family Cancers Grandmother-maternal with uterine cancer at age ~60. LOCATION: [facility] BREAST COMPOSITION: The breasts are heterogeneously dense, which may obscure small masses. FINDINGS: RIGHT BREAST: No significant suspicious finding. LEFT BREAST: No significant suspicious finding. Benign appearing calcifications are present. There is a similar focal asymmetry. DIAGNOSTIC CATEGORY 2--BENIGN FINDING. NO CHANGE FROM COMPARISON. RECOMMENDATIONS: ROUTINE MAMMOGRAM AND CLINICAL EVALUATION IN 12 MONTHS. Dictated by: Demar Varela MD on 10/31/2025 at 14:19 Approved by: Demar Varela MD on 10/31/2025 at 14:23
--- OUTSIDE RECORDS SUMMARY | 2025-10-31 09:31 | XMS_ITS | CCD ---
Author Organization [facility] Care Team Providers Care Scheduling Manager Name Role Phone Nadege Yeboah Attending Unavailable Obinna, Nadege Admitting Unavailable Adalid, Jayy Primary Care Unavailable TRINO Yeboah Attending Provider DO Jayy Cordoba Primary Care Provider RADHA [...] Care Provider Roger Pickett DO Attending Provider RADHA CARRILLO Attending Unavailable Jayy Cordoba Primary Care Unavailable Roger Pickett Attending Roger Schneider Admitting Unavailable Jayy Cordoba DO Primary Care Provider Allergies Allergy ClassificationReported Allergen(s)Allergy TypeDate of OnsetReaction(s) Facility (3 sources)Sulfonamides (Antibiotic)Drug allergy (disorder)16-48-9898Hnlqs[facility] (1 source)Sulfonamides (Antibiotic)Drug allergy (disorder)49-68-3981KsnTri[facility] Repository (5 sources)Sulfamethoxazole / TrimethoprimDrug Lstisdk94-25-8617AW[facility] (5 sources)Sulfonamides (Antibiotic)Drug Dqjdepu20-92-8034W[facility] Work Phone: Medications Current Medications MedicationDrug Class(es)DatesSig (Normalized)Sig (Original)glucosamine sulfate 500 mg oral tablet (2 sources)Start: 79-80-4180rvac 1 tablet by mouth once dailyGlucosamine Sulfate (Glucosamine) 500 mg tablet Active 500 MG PO Daily February 26, 2025 12:00am admi nister with a meal Completed/Discontinued Medications MedicationDrug Class(es)DatesSig (Normalized)Sig (Original)clobetasol propionate 0.0005 mg/mg topical ointment (9 sources)CorticosteroidStart: 08-30-2024 End: 48-48-1747Gzolrnlgkt 0.05 % ointment Discontinued 1 APPLIC TOPICAL Twice daily as needed for rash August 30, 2024 12:00am February 26, 2025 10:43amStart: 02-30-2306zhpjmqcdej (Temovate) 0.05 % cream Indications: Vaginal itching , Yeast infection Apply pea size amount to affected area twice a day for 2 weeks and as needed after 2 weeks. 45 g 01/31/2024 Active Problems Active Problems Problem ClassificationProblemDateDocumented DateEpisodic/ChronicAsthma (1 source)Mild intermittent asthma with (acute) exacerbation; Translations: [MILD INTERMIT ASTHMA W/AC EXACERBAT]Onset: 41-59-2464YbgktduOlejwbm ulcer of skin (2 sources)Non-pressure chronic ulcer of unspecified ankle with unspecified severity; Translations: [Non-pressure chronic ulcer of left ankle limited to breakdown of skin]Onset: 27-28-1594TqzmakhMxpxpwcep of lipid metabolism (1 source)Familial hypercholesterolemia; Translations: [FAMILIAL HYPERCHOLESTEROLEMIA]Onset: 82-74-1654BffaglbQwmogvxde hypertension (1 source)Essential (primary) hypertension; Translations: [ESSENTIAL PRIMARY HYPERTENSION]Onset: 68-56-6575RqeamdqVwvpidnpcmqzw and screening for infectious disease (1 source)Encounter for screening for human papillomavirus (HPV); Translations: [ENC SCREENING HUMAN PAPILLOMAVIRUS]Onset: 57-38-9787GndhmzhwYyikg disorders and dislocations; trauma-related (9 sources)Acute meniscal tear, medial; Translations: [Other tear of medial meniscus, current injury, left knee, initial encounter]Onset: 02-26-2025 99-45-3988DqsdsaxvOgvnqbishczg (1 source)Age-related osteoporosis without current pathological fracture; Translations: [AGE-REL OSTEOPOR W/OCURR PATH FX]Onset: 26-32-4389FtbiwhwSyqve diseases of veins and lymphatics (5 sources)Chronic venous hypertension (idiopathic) with ulcer of left lower extremity; Translations: [CHRON VENOUS HTN W/ULCER LT LW EXT]Onset: 10-08-2022 ChronicOther diseases of veins and lymphatics (1 source)Stasis dermatitis; Translations: [Venous insufficiency (chronic) (peripheral)]56-97-4861ButrmxzhXkgjr diseases of veins and lymphatics (4 sources)Venous insufficiency of leg; Translations: [Venous insufficiency (chronic) (peripheral)]32-03-8732LbpvcwxgKmhqc non-traumatic joint disorders (3 sources)Anterior knee pain; Translations: [Pain in left knee]08-30-2024 EpisodicOther non-traumatic joint disorders (5 sources)Pain in left knee; Translations: [Pain in joint, lower leg]01-22-2025 EpisodicOther nutritional; endocrine; and metabolic disorders (1 source)Obesity, unspecified; Translations: [OBESITY UNSPECIFIED]Onset: 70-36-7858LptctrfHbenw nutritional; endocrine; and metabolic disorders (2 sources)Overweight; Translations: [Overweight]Onset: EpisodicOther nutritional; endocrine; and metabolic disorders (5 sources)Overweight; Translations: [Overweight]69-10-8994WyilzeimLjrxa screening for suspected conditions (not mental disorders or infectious disease) (10 sources)Encounter for screening for malignant neoplasm of cervix; Translations: [Encounter for screening mammogram for malignant neoplasm of breast]Onset: 63-65-3892RbghdmckQbtgq skin disorders (2 sources)Other specified disorders of pigmentation; Translations: [Dyschromia, unspecified]Onset: 499361-11-3852ZjbiknpcGvhyr skin disorders (5 sources)Hemosiderin pigmentation of lower limb due to varicose veins of lower limb; Translations: [Other specified disorders of pigmentation]08-20-2022 EpisodicOther skin disorders (4 sources)Corns and callosities; Translations: [CORNS AND CALLOSITIES]Onset: 34-14-7802HjaxzagxKsizt skin disorders (4 sources)Vesicular eczema; Translations: [Dyshidrosis [pompholyx]]08-30-2024 EpisodicPhlebitis; thrombophlebitis and thromboembolism (14 sources)Phlebitis and thrombophlebitis of superficial vessels of right lower extremity; Translations: [Phlebitis and thrombophlebitis of superficial vessels of left lower extremity]Onset: 56-42-8114McqclxptAfttqxxg codes; unclassified (3 sources)Localized edema; Translations: [Edema]Onset: 973155-94-8205 EpisodicResidual codes; unclassified (1 source)Edema of left lower leg; Translations: [Localized edema]08-20-2022 EpisodicResidual codes; unclassified (2 sources)Postmenopausal state; Translations: [Asymptomatic menopausal state] 43-81-3640GuokbceoVcjkjwm and strains (5 sources)Strain of muscle of lower limb; Translations: [Strain of unspecified muscle(s) and tendon(s) at lower leg level, left leg, initial encounter] 33-69-2965VgwvcxdfHgawlbybyfpl (1 source)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; Translations: [Varicose veins ofunspecified lower extremity with ulcer of ankle] Onset: 91-21-5922Cllewbmy veins of lower extremity (8 sources)Varicose veins of unspecified lower extremity with other complications; Translations: [Ankle ulcer]Onset: 774262-76-4005Wjmijfbh Past or Other Problems Problem ClassificationProblemDateDocumented DateEpisodic/ChronicOther diseases of veins and lymphatics (7 sources)Venous insufficiency (chronic) (peripheral); Translations: [Varicose veins of lower extremities with inflammation]Onset: 115699-65-9828Larxqeqd Other non-traumatic joint disorders (1 source)Pain in left ankle and joints of left foot; Translations: [PAIN IN LEFT ANKLE]Onset: 43-98-3698WewullpdLvsel upper respiratory infections (4 sources)Acute upper respiratory infection, unspecified; Translations: [ACUTE UP RESPIRATORY INFECTION UNS]Onset: 25-01-1514BejmvqgrBdhppogl codes; unclassified (1 source)Asymptomatic menopausal state; Translations: [ASYMPTOMATIC MENOPAUSAL STATE]Onset: 48-87-2971MbbqndonKgwgkeoj codes; unclassified (1 source)Family history of malignant neoplasm of other genital organs; Translations: [FAM HX MALIG NEOPLSM OTH GENIT ORGN]Onset: 85-66-2673Wpfgbkcc Results Test NameValueInterpretationReference RangeFacilityIGP,APTIMA HPV,AGE GDLNon 85-37-3979HQD GDLN ACOG TESTINGNote.NOMS HealthcareComment on above:TESTS RESULT FLAG UNITS REF RANGE LAB Clinician Provided Cytology Information Source.............Vagina No. of containers..01 ThinPrep Vial Age Algo [facility]... FLAG LEGEND: L-Low Normal,H-High Normal,LL-Alert Low,HH-Alert High <-Panic Low,>-Panic High,A-Abnormal,AA-Critical Abnormal Performed at: 01 =G [address] [address] Frieda Bowser MD, HPV APTIMANegativeNegativeNOMS HealthcareComment on above:This nucleic acid amplification test detects fourteen high- risk HPV types (16,18,31,33,35,39,45,51,52,56,58,59,66,68) without differentiation. Performed at: =[address] [id number] Director Of Religious Life: Frieda Bowser MD, Phone: [phone] Performed at: [facility] [address] [place] [id number] Director Of Religious Life: Patrick Chen MD, Phone: [phone] IGP, APTIMA HPV, RFX 16/18,45Note.NOMS HealthcareComment on above:TESTS RESULT FLAG UNITS REF RANGE LAB DIAGNOSIS: 02 NEGATIVE FOR INTRAEPITHELIAL LESION OR MALIGNANCY. Specimen adequacy: 02 Satisfactory for evaluation. Performed by: 02 Oksana Santiago, Special Agent In Charge ([facility]) . 02 Note: Note 03 The Pap smear is a screening test designed to aid in the detection of premalignant and malignant conditions of the uterine cervix. It is not a diagnostic procedure and should not be used as the sole means of detecting cervical cancer. Both false-positive and false-negative reports do occur. Test Methodology: Note 03 This liquid based ThinPrep(R) pap test was screened with the use of an image guided system. HPV Genotype Reflex Note 02 Criteria not met, HPV Genotype not performed. FLAG LEGEND: L-Low Normal,H-High Normal,LL-Alert Low,HH-Alert High <-Panic Low,>-Panic High,A-Abnormal,AA-Critical Abnormal Performed at: 02 KWCYT [facility] [address] [place] [address] Patrick Chen MD, 03 WB [facility] [address] [address] Frieda Bowser MD, SPATULA-ALONE VAGINA CLINISYNCNOMS HealthcareX-ray reportOrdered By: Xavier Romano on 02-26-2025 Study reportAD[facility] [address] [place] [address] XRay Report Signed Patient: Norberto Hernandez MR#: [id number] : 1960 Acct:[id number] Age/Sex: 64 / F ADM Date: 5 Loc: [facility] [place] Room: Type: [facility] CLI Attending Dr: Roger Pickett DO Copies to: Roger Pickett DO~ Ordering Provider: Roger Pickett DO Date of Service: 02/26/25 XR/XR knee BI 3V - NOT FOR ER USE: S83.232A - Complextear of medial meniscus, current injur... BILATERAL KNEES - 4 views each CLINICAL HISTORY: Left knee pain for 9 months. No known injury. COMPARISON: Left knee series 10/10/2024 FINDINGS: No knee joint effusions. No acute bony process. Joint spaces appear maintained. XR/XR knee BI 3V - NOT FOR ER USE IMPRESSION: NO ACUTE BONY PROCESS OR SIGNIFICANT DEGENERATIVE CHANGE. Impression dictated by: Xavier Romano Jr., DRoxieORoxie02/26/2025 4:46 PM Dictation Location: [place] [address] Transcribed By: [facility] 02/26/251645 Dictated By: Xavier Romano Jr, DO 02/26/251644 Signed By: 02/26/25 164 [facility] HospitalXR [facility] BI 3V - NOT FOR ER USEon 25-11-2643UU knee BI 3V - NOT FOR ER USEADAMS [facility] [address] [place] [address] XRay Report Signed Patient: Norberto Hernandez MR#: [id number] : 1960 Acct:[id number] Age/Sex: 64 / F ADM Date: 02/26/25 Loc: [facility] [facility] Room: Type: [facility] CLI Attending Dr: Roger Pickett DO Copies to: Roger Pickett DO Ordering Provider: Roger Pickett DO Date of Service: 02/26/25 XR/XR knee BI 3V - NOT FOR ER USE: S83.232A - Complex tear of medial meniscus, current injur... BILATERAL KNEES - 4 views each CLINICAL HISTORY: Left knee pain for 9 months. No known injury. COMPARISON: Left knee series 10/10/2024 FINDINGS: No knee joint effusions. No acute bony process. Joint spaces appear maintained. XR/XR knee BI 3V - NOT FOR ER USE IMPRESSION: NO ACUTE BONY PROCESS OR SIGNIFICANT DEGENERATIVE CHANGE. Impression dictated by: Primitivo Kaur Jr.ORoxie02/26/2025 4:46 PM Dictation Location: [place] [address] Transcribed By: [facility] 02/26/251645 Dictated By: Xavier Romano Jr, DO 02/26/251644 Signed By: 02/26/251645[facility] TOMOSYNTHESIS SCREENING BIon 23-48[place], [place] [address] Mammography Report Signed Patient: NORBERTO HERNANDEZ MR#: [id number] : 1960 Acct:[id number] Age/Sex: 64 / F ADM Date: 10/16/24 Loc: MAMMO Attending Dr: Radha Carrillo D.O. Ordering Physician: Radha Carrillo D.O. Results: Date of Service: 10/16/24 Follow Up: Procedure(s): MM tomosynthesis screening BI Accession Number(s): [id number] cc: Jayy Cordoba D.O.; Radha Carrillo D.O. Patient Name: NORBERTO HERNANDEZ MR#: [id number] : 1960 Exam Date: 10/16/2024 Ordering Doctor: DR Radha Carrillo . RADIOLOGY REPORT PROCEDURE: MM TOMOSYNTHESIS SCREENING BI COMPARISON: MM TOMOSYNTHESIS SCREENING BI, 09/01/2023. MG MAMM SCREEN 3D GREG CAD, 05/29/2022. MG MAMM SCREEN 3D GREG CAD, 03/26/2021. MG MAMM GREG SCRN W CAD DIG, 05/29/2013. INDICATIONS: Screening Calculator Name NCI Breast Cancer Risk Assessment Tool 5 Year Breast Cancer Risk 1.90% Lifetime Breast Cancer Risk 8.00% Personal Breast Cancer No Personal Ovarian Cancer No Treatments None Family Cancers Grandmother-maternal with uterine cancer at age 60. LOCATION: [facility] BREAST COMPOSITION: The breasts are heterogeneously dense,which may obscure small masses. FINDINGS: DIAGNOSTIC CATEGORY 2--BENIGN FINDING: RIGHT BREAST: No significant suspicious finding. No significant change has occurred. LEFT BREAST: No significant suspicious finding. Scattered benign-appearing lymph nodes are present. No significant change has occurred. RECOMMENDATIONS: ROUTINE MAMMOGRAM AND CLINICAL EVALUATION IN 12 MONTHS. PLEASE NOTE: A NORMAL MAMMOGRAM DOES NOT EXCLUDE THE POSSIBILITY OF BREAST CANCER. A CLINICALLY SUSPICIOUS PALPABLE LUMP SHOULD BE BIOPSIED. Dictated by: J Carlos Schwartz M.D. on 10/16/2024 at 12:46 Approved by: J Carlos Schwartz M.D. on 10/16/2024 at 12:48 Dictated By: J Carlos Schwartz M.D. Signed By: 10/16/24 1249 DD/ 1248 TD/TT: Computer Programming Manager:TBHRadiology, Radiologist, MD - 10/16/2024 [place] [address] Mammography Report Signed Patient: NORBERTO HERNANDEZ MR#: [id number] : 1960 Acct:[id number] Age/Sex: 64 / F ADM Date: 10/16/24 Loc: MAMMO Attending Dr: Radha Carrillo D.O. Ordering Physician: Radha Carrillo D.O. Results: Date of Service: 10/16/24 Follow Up: Procedure(s): MM tomosynthesis screening BI Accession Number(s): [id number] cc: Jayy Cordoba D.O.; Radha Carrillo D.O. Patient Name: NORBERTO HERNANDEZ MR#: [id number] : 1960 Exam Date: 10/16/2024 Ordering Doctor: DR Radha Carrillo . RADIOLOGY REPORT PROCEDURE: MM TOMOSYNTHESIS SCREENING BI COMPARISON: MM TOMOSYNTHESIS SCREENING BI, 09/01/2023. MG MAMM SCREEN 3D GREG CAD, 05/29/2022. MG MAMM SCREEN 3D GREG CAD, 03/26/2021. MG MAMM GREG SCRN W CAD DIG, 05/29/2013. INDICATIONS: Screening Calculator Name NCI Breast Cancer Risk Assessment Tool 5 Year Breast Cancer Risk 1.90% Lifetime Breast Cancer Risk 8.00% Personal Breast Cancer No Personal Ovarian Cancer No Treatments None Family Cancers Grandmother-maternal with uterine cancer at age 60. LOCATION: [facility] BREAST COMPOSITION: The breasts are heterogeneously dense,which may obscure small masses. FINDINGS: DIAGNOSTIC CATEGORY 2--BENIGN FINDING: RIGHT BREAST: No significant suspicious finding. No significant change has occurred. LEFT BREAST: No significant suspicious finding. Scattered benign-appearing lymph nodes are present. No significant change has occurred. RECOMMENDATIONS: ROUTINE MAMMOGRAM AND CLINICAL EVALUATION IN 12 MONTHS. PLEASE NOTE: A NORMAL MAMMOGRAM DOES NOT EXCLUDE THE POSSIBILITY OF BREAST CANCER. A CLINICALLY SUSPICIOUS PALPABLE LUMP SHOULD BE BIOPSIED. Dictated by: J Carlos Schwartz M.D. on 10/16/2024 at 12:46 Approved by: J Carlos Schwartz M.D. on 10/16/2024 at 12:48 Dictated By: J Carlos Schwartz M.D. Signed By: 10/16/24 1249 DD/ 1248 TD/TT: Computer Programming Manager: [facility] HospitalRadiology Study observation (narrative)[facility] TOMOSYNTHESIS SCREENING BIOrdered By: Radiologist Radiology on 93-50-3594DEVJGeneral [facility] Hospital Work Phone: cytology Cervical or vaginal smear or scraping study Ordered By: Radha Bobo on 56-07-0618WKUGCox [place] ACOG PANEL 2: 30 to 65on 02-02-2023..NormalThe Mansfield HospitalComment on above:Result Comment: Performed at: WBPerformed By: #### [id number] ####[facility] [address] [place] [address]DrRoxie Avila Gdln ACOG Gmirglj57-50 NormalTrihealth Good Samaritan HospitalComment on above:Performed By: #### [id number] ####[facility] [address] [place] [id number] LinkDIAGNOSIS:CommentNormalThe [facility]field HospitalComment on above:Result Comment: NEGATIVE FOR INTRAEPITHELIAL LESION OR MALIGNANCY. Performed at: WBPerformed By: #### [id number] ####[facility] A[address]ls[address] [place] [id number]. Edy LinkHPV AptimaNegativeNormal NegativeThe [facility] Hospital on above:Result Comment: This nucleic acid amplification test detects fourteen high-risk HPV types (16,18,31,33,35,39,45,51,52,56,58,59,66,68) without differentiation. Performed at: =GPerformed By: #### [id number] ####[facility] [address] [place], [place] [address]Dr. Edy LinkHPV Genotype ReflexComment NormalWilson Street Hospital on above:Result Comment: Criteria not met, HPV Genotype not performed. Performed at: WBPerformed By: #### [id number] ####[place] [address]Dr. Edy LinkMethodology:CommentWilson Health on above:Result Comment: This liquid based ThinPrep(R) pap test was screened with the use of an image guided system. Performed at: WBPerformed By: #### [id number] ####[facility] [address] [place], [place] [address]Dr. Edy LinkNote:CommentNoMagruder Hospital on above:Result Comment: The Pap smear is a screening test designed to aid in the detection of premalignant and malignant conditions of the uterine cervix. It is not a diagnostic procedure and should not be used as the sole means of detecting cervical cancer. Both false-positive and false-negative reports do occur. . Performed at: WBPerformed By: #### [id number] ####[facility] [address] [place], [place] [address]Dr. Edy ChangPerformed by:CommentWilson Health on above:Result Comment: Charline Zelaya, Special Agent In Charge (ASCP) Performed at: WBPerformed By: #### [id number] ####[facility] [address] [place], [place] [address]Dr. Edy LinkSpecimen adequacy:Comment NormalThe Fox HospitalComment on above:Result Comment: Satisfactory for evaluation. Endocervical and/or squamous metaplastic cells (endocervical component) are present. Performed at: WBPerformed By: #### [id number] ####[facility] [address] [place], [place] [address]OuRoxie LinkVC INJ SCL [facility] REP VEINSon 87-31-0149GU INJ SCL [facility]ARY[facility] SERVICES REP VEINSPatient: NORBERTO HERNANDEZ Exam Date: 11/27/2022 : 1960 Gender:F Ordering : DR ANNALISE FREED M.D. Admission #: [id number] Family : Order #: [id number] CLICK HERE TO VIEW EXAM RADIOLOGY REPORT PROCEDURE: VEIN CENTER INJECTION SCLEROSING SOLUTION MULTIPLE VEINS SAME COMPARISON: VC INJ SCL [facility] REP VEINS, 11/26/2022. VC INJ SCL [facility] REP VEINS, 11/24/2022. INDICATIONS: Pain co-occurrent and due [...] by: Annalise Freed MD on 11/27/2022 at 10:34[facility] HospitalVC IN[facility] SCL [facility] REP VEINSon [id number] INJ SCL [facility] REP VEINSPatient: NORBERTO HERNANDEZ. Exam Date: 11/26/2022 : 1960 Gender:F Ordering : DR ANNALISE FREED M.D. Admission #: [id number] Family : Order #: [id number] CLICK HERE TO VIEW EXAM RADIOLOGY REPORT PROCEDURE: VEIN CENTER INJECTION SCLEROSING SOLUTION MULTIPLE VEINS SAME COMPARISON: VC INJ SCL [facility] REP VEINS, 11/24/2022. INDICATIONS: Pain co-occurrent and due [...] by: Annalise Freed MD on 11/26/2022 at 10:04[facility] HospitalVC CONSULT FOLLOWUPon 89-78-2651RM CONSULT FOLLOWUPPatient: NORBERTO HERNANDEZRoxie Exam Date: 11/25/2022 : 1960 Gender:F Ordering : DR ANNALISE FREED M.D. Admission #: [id number] Family : Order #: [id number] CLICK HERE TO VIEW EXAM RADIOLOGY REPORT [...] by: Annalise Freed MD on 11/25/2022 at 15:34[facility] HospitalVC EXT VENOUS RT LIMITEDon 59-76-0964RK EXT VENOUS RT LIMITEDPatient: NORBERTO HERNANDEZ. Exam Date: 11/25/2022 : 1960 Gender:F Ordering : DR ANNALISE FREED M.D. Admission #: [id number] Family : Order #: [id number] CLICK HERE TO VIEW EXAM RADIOLOGY REPORT [...] by: Annalise Freed MD on 11/25/2022 at 09:51[facility] HospitalVC INJ SCL [facility] REP VEINSon 54-01-4475ZS INJ SCL [facility] REP VEINSPatient: NORBERTO HERNANDEZ. Exam Date: 11/24/2022 : 1960 Gender:F Ordering : DR ANNALISE RFEED M.D. Admission #: [id number] Family : Order #: [id number] CLICK HERE TO VIEW EXAM RADIOLOGY REPORT [...] by: Annalise Freed MD on 11/24/2022 at 11:04[facility] HospitalVC INJ FOAM SCLERO W US MLTIon 26-71-6509FQ INJ FOAM SCLERO W US MLTIPatient: NORBERTO HERNANDEZ Exam Date: 11/19/2022 : 1960 Gender:F Ordering : DR ANNALISE FREED M.D. Admission #: [id number] Family : Order #: [id number] CLICK HERE TO VIEW EXAM RADIOLOGY REPORT [...] J Carlos Schwartz M.D. on 11/19/2022 at 10:04[facility] HospitalVC CONSULT FOLLOWUPon 76-89-0049QY CONSULT FOLLOWUPPatient: NORBERTO HERNANDEZ Exam Date: 11/16/2022 : 1960 Gender:F Ordering : DR ANNALISE FREED M.D. Admission #: [id number] Family : Order #: [id number] CLICK HERE TO VIEW EXAM RADIOLOGY REPORT [...] J Carlos Schwartz M.D. on 11/16/2022 at 11:21[facility] HospitalVC EXT VENOUS LT LIMITEDon 20-62-4311KH EXT VENOUS LT LIMITEDPatient: NORBERTO HERNANDEZ Exam Date: 11/16/2022 : 1960 Gender:F Ordering : DR ANNALISE FREED M.D. Admission #: [id number] Family : Order #: [id number] CLICK HERE TO VIEW EXAM RADIOLOGY REPORT [...] J Carlos Schwartz M.D. on 11/16/2022 at 11:17[facility] HospitalVC INJ FOAM SCLERO W US MLTIon 87-64-3894DA INJ FOAM SCLERO W US MLTI Patient: NORBERTO HERNANDEZ Exam Date: 11/13/2022 : 1960 Gender:F Ordering : DR ANNALISE FREED M.D. Admission #: [id number] Family : Order #: [id number] CLICK HERE TO VIEW EXAM RADIOLOGY REPORT [...] immediately ambulatory. The pat (more content not included)...NormalTrihealth Good Samaritan HospitalVC CONSULT FOLLOWUPon 95-47-6853UP CONSULT FOLLOWUPPatient: NORBERTO HERNANDEZRoxie Exam Date: 11/12/2022 : 1960 Gender:F Ordering : DR ANNALISE FREED M.D. Admission #: [id number] Family : Order #: [id number] CLICK HERE [...] by: Annalise Freed MD on 11/12/2022 at 12:40[facility]VC EXT VENOUS GREG LIMITEDon 70-80-5773UZ EXT VENOUS GREG LIMITEDPatient: NORBERTO HERNANDEZ Exam Date: 11/12/2022 : 1960 Gender:F Ordering : DR ANNALISE FREED M.D. Admission #: [id number] Family : Order #: [id number] CLICK HERE TO VIEW EXAM RADIOLOGY REPORT [...] by: Annalise Freed MD on 11/12/2022 at 12:38[facility] HospitalVC INJ FOAM SCLERO W US MLTIon 60-38-8807RG INJ FOAM SCLERO W US MLTIPatient: NORBERTO HERNANDEZ Exam Date: 11/09/2022 : 1960 Gender:F Ordering : DR ANNALISE FREED M.D. Admission #: [id number] Family : Order #: [id number] CLICK HERE TO VIEW EXAM RADIOLOGY REPORT [...] wear compression stockings o (more content not included)...[facility]VC INJ FOAM SCLERO W US MLTIon 63-65-7655JD INJ FOAM SCLERO W US MLTIPatient: NORBERTO HERNANDEZ Exam Date: 11/06/2022 : 1960 Gender:F Ordering : DR ANNALISE FREED M.D. 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 8 mL aliquot of Varithena(r) was [...] superficial varices, the adjacent (more content not included)...NormalTrihealth Good Samaritan HospitalVC CONSULT FOLLOWUPon 91-23-2802TF CONSULT FOLLOWUPPatient: NORBERTO HERNANDEZ Exam Date: 11/02/2022 : 1960 Gender:F Ordering : DR ANNALISE FREED M.D. Admission #: [id number] Family : Order #: [id number] CLICK HERE TO VIEW EXAM RADIOLOGY REPORT [...] by: Annalise Freed MD on 11/02/2022 at 10:28[facility]VC EXT VENOUS LT LIMITEDon [id number] EXT VENOUS LT LIMITEDPatient: NORBERTO HERNANDEZ Exam Date: 11/02/2022 : 1960 Gender:F Ordering : DR ANNALISE FREED M.D. Admission #: [id number] Family : Order #: [id number] CLICK HERE TO VIEW EXAM RADIOLOGY REPORT [...] by: Annalise Freed MD on 11/02/2022 at 10:05[facility] IN[facility] FOAM SCLERO W US MLTIon 47-79-8607SB INJ FOAM SCLERO W US MLTIPatient: NORBERTO HERNANDEZ Exam Date: 10/28/2022 : 1960 Gender:F Ordering : DR ANNALISE FREED M.D. Admission #: [id number] Family : Order #: [id number] CLICK HERE TO VIEW EXAM RADIOLOGY REPORT PROCEDURE: VEIN CENTER INJECTION FOAM SCLEROSING SOLUTION WITH ULTRASOUND MULTIPLE VEINS COMPARISON: VC INJ FOAM SCLERO W US ML, 10/19/2022. Pre-operative Diagnosis: CEAP class C4a venous [...] J Carlos Schwartz M.D. on 10/28/2022 at 13:22[facility] CONSULT FOLLOWUPon 07-24-5148AS CONSULT FOLLOWUPPatient: NORBERTO HERNANDEZ Exam Date: 10/26/2022 : 1960 Gender:F Ordering : DR ANNALISE FREED M.D. Admission #: [id number] Family : Order #: [id number] CLICK HERE TO VIEW EXAM RADIOLOGY REPORT [...] J Carlos Schwartz M.D. on 10/26/2022 at 10:33[facility]VC EXT VENOUS LT LIMITEDon 55-23-9631YL EXT VENOUS LT LIMITEDPatient: NORBERTO HERNANDEZRoxie Exam Date: 10/26/2022 : 1960 Gender:F Ordering : DR ANNALISE FREED M.D. Admission #: [id number] Family : Order #: [id number] CLICK HERE TO VIEW EXAM RADIOLOGY REPORT [...] J Carlos Schwartz M.D. on 10/26/2022 at 09:59[facility] INJ FOAM SCLERO W US MLTIon 21-04-9662NT INJ FOAM SCLERO W US MLTI Patient: NORBERTO HERNANDEZ Exam Date: 10/19/2022 : 1960 Gender:F Ordering : DR ANNALISE FREED M.D. Admission #: [id number] Family : Order #: [id number] CLICK HERE TO VIEW EXAM RADIOLOGY REPORT [...] the treated superficial varic (more content not included)...[facility] CONSULT FOLLOWUPon 03-34-8830EJ CONSULT FOLLOWUPPatient: NORBERTO HERNANDEZ Exam Date: 10/12/2022 : 1960 Gender:F Ordering : DR ANNALISE FREED M.D. Admission #: [id number] Family : Order #: [id number] CLICK HERE TO VIEW EXAM RADIOLOGY REPORT [...] by: Annalise Freed MD on 10/12/2022 at 09:15NR[facility] InstituteVC EXT VENOUS LT LIMITEDon 43-40-4698IM EXT VENOUS LT LIMITEDPatient: PETE NORBERTO BergRoxie Exam Date: 10/12/2022 : 1960 Gender:F Ordering : DR ANNALISE FREED M.D. Admission #: [id number] Family : Order #: [id number] CLICK HERE TO VIEW EXAM RADIOLOGY REPORT [...] by: Annalise Freed MD on 10/12/2022 at 09:14[facility]VC INJ FOAM SCLERO W US MLTIon 82-15-7513YS INJ FOAM SCLERO W US MLTIPatient: NORBERTO HERNANDEZ Exam Date: 10/09/2022 : 1960 Gender:F Ordering : DR ANNALISE FREED M.D. Admission #: [id number] Family : Order #: [id number] CLICK HERE TO VIEW EXAM RADIOLOGY REPORT [...] for two weeks, to (more content not included)...[facility] CONSULT FOLLOWUPon 13-51-4537TU CONSULT FOLLOWUPPatient: NORBERTO HERNANDEZRoxie Exam Date: 09/30/2022 : 1960 Gender:F Ordering : DR ANNALISE FREED M.D. Admission #: [id number] Family : Order #: [id number] CLICK HERE TO VIEW EXAM RADIOLOGY REPORT [...] by: Annalise Freed MD on 09/30/2022 at 12:34[facility]VC EXT VENOUS LT LIMITEDon 65-07-6815HK EXT VENOUS LT LIMITEDPatient: NORBERTO HERNANDEZ Exam Date: 09/30/2022 : 1960 Gender:F Ordering : DR ANNALISE FREED M.D. Admission #: [id number] Family : Order #: [id number] CLICK HERE TO VIEW EXAM RADIOLOGY REPORT [...] by: Annalise Freed MD on 09/30/2022 at 11:55[facility]VC ENDOVENOUS ABL PERFORATING LTon 25-75-2781BQ ENDOVENOUS ABL PERFORATING LT Patient: NORBERTO HERNANDEZ Exam Date: 09/25/2022 : 1960 Gender:F Ordering : DR ANNALISE FREED M.D. Admission #: [id number] Family : Order #: [id number] CLICK HERE TO VIEW EXAM RADIOLOGY REPORT PROCEDURE: VEIN CENTER ENDOVENOUS ABLATION FOR VEIN LEFT ANTERIOR ACCESSORY SAPHENOUS VEIN COMPARISON: None. INDICATIONS: Phlebitis of superficial veins of lower extremity I83.813 OPERATIVE REPORT: Diagnosis: Superficial venous reflux, incompetent perforating veins Procedure: Endovenous laser ablation of the left bacteriologist industrial(s) Procedure: The patient was positioned supine on [...] percutaneously, with a 21-gauge needle, into the bacteriologist industrial vein under ultrasound guidance. The needle was [...] percutaneously, with a 21-gauge needle, into the bacteriologist industrial vein under ultrasound guidance. The needle was [...] percutaneously, with a 21-gauge needle, into the bacteriologist industrial vein under ultrasound guidance. The needle was [...] by: Annalise Freed MD on 09/25/2022 at 10:14[facility]VC CONSULT FOLLOWUPon 23-93-4062IY CONSULT FOLLOWUPPatient: PETE NORBERTO BergRoxie Exam Date: 09/09/2022 : 1960 Gender:F Ordering : DR ANNALISE FREED M.D. Admission #: [id number] Family : Order #: [id number] CLICK HERE TO VIEW EXAM RADIOLOGY REPORT [...] by: Annalise Freed MD on 09/09/2022 at 10:50[facility]VC EXT VENOUS RT LIMITEDon 84-90-8600LE EXT VENOUS RT LIMITEDPatient: NORBERTO HERNANDEZ. Exam Date: 09/09/2022 : 1960 Gender:F Ordering : DR ANNALISE FREED M.D. Admission #: [id number] Family : Order #: [id number] CLICK HERE TO VIEW EXAM RADIOLOGY REPORT [...] by: Annalise Freed MD on 09/09/2022 at 10:02[facility]VC ENDOVENOUS ABL 1ST V RTon 31-97-3323XP ENDOVENOUS ABL 1ST V RTPatient: NORBERTO HERNANDEZ. Exam Date: 09/04/2022 : 1960 Gender:F Ordering : DR ANNALISE FREED M.D. Admission #: [id number] Family : Order #: [id number] CLICK HERE TO VIEW EXAM RADIOLOGY REPORT [...] by: Annalise Freed MD on 09/04/2022 at 10:24[facility] HospitalRSV on 68-62-7624WRA AGNegativeNormalNEGATIVEThe Mansfield HospitalComment on above: Performed By: #### RSV ####[facility] [address] [place], [place] [address]Ip.Yilan ChangMG MAMM SCREEN 3D GREG CADon 07-50-8053MS MAMM SCREEN 3D GREG CADPatient: NORBERTO HERNANDEZ Exam Date: 05/29/2022 : 1960 Gender:F Ordering : DR RADHA CARRILLO . Admission #: [id number] Family : Order #: [id number] CLICK HERE TO VIEW EXAM RADIOLOGY REPORT [...] uterine cancer at age 61. LOCATION: [facility] BREAST COMPOSITION: Heterogeneously dense,which may obscure [...] by: Annalise Freed MD on 05/29/2022 at 08:51[facility] HospitalXR DEXA BONE DENSITYon 50-58-0588FM DEXA BONE DENSITYDEXA Bone Density Study CLINICAL: Evaluate bone mineral density. Postmenopausal COMPARISON: None FINDINGS: The bone density study was assessed by dual-energy x-ray absorptiometry with the [employer] scanner. The test results are expressed in [...] Electronically authenticated by: ANNALISE HERNANDEZ Date: 2022-05-29 08:[address] [place], [place] [address]VC COMP CONSULTATIONon 71-71-4499MI COMP CONSULTATIONPatient: NORBERTO HERNANDEZRoxie Exam Date: 05/22/2022 : 1960 Gender:F Ordering : DR ANNALISE FREED M.D. Admission #: [id number] Family : Order #: [id number] CLICK HERE TO VIEW EXAM RADIOLOGY REPORT [...] arterial disease 5. CEAP: C4a, EC, AP, CT PLAN: 1. Continued use of compression stockings [...] J Carlos Schwartz M.D. on 05/22/2022 at 15:27[facility]VC VENOUS REFLUX GREG [facility] 09-72-8746IV VENOUS REFLUX GREG TPatient: NORBERTO HERNANDEZ Exam Date: 05/22/2022 : 1960 Gender:F Ordering : DR ANNALISE FREED M.D. 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 on 05/22/2022 at 14:54[facility] HospitalCoding Summary.on 79-16-2687Atzlwu Summary.CODING DATE: 02/25/2021 FINAL [facility] STATUS: Home (Routine DC) PAYOR: Medical Melvin APC DESCRIPTION 5523 Level 3 Imaging without [...] Renita Ureña CphT Date Saved: 02/25/2021 12:07 pmNchristaAdams County Regional Medical CenterUS LE Venous Duplex Insufficiency Bilaton 51-80-8002JA LE Venous Duplex Insufficiency Bilat Exam Date/Time: [...] Reflux (sec): None. Mid calf: Diameter not visualizedGrand Lake Joint Township District Memorial HospitalConsent for Treatmenton 38-37-3539Sevnnbg for Treatment [id number]#1.00CD:[address] [place], [place] [address]RAD - Ultrasound Impressionon 82-56-0653SSF - Ultrasound Impression [id number]#1.00CD:[address] [place], [place] [address]creenson 55-77-1726Akbfixx [id number]#1.00CD:[address] [place], [place] [address]Ambulatory Clinical Summaryon 08-09-9766Tkmfyhftkz Clinical Summary {y6-u3-15-e9-73-61-09-80-qj-k6-d7-0f-85-45-d8-7c}CD:[id number] Lake Joint Township District Memorial HospitalGeneral Surgery Office/Clinic Noteon 97-41-4042Eknnlif Surgery Office/Clinic NoteHPI Staff Est Varicose Vein patient , last seen for sclero 03/16/2016 . C/o venous ulcer left ankle pt had L/SLGSV and exc of mult vv left leg [...] on her feet for prolonged periods. She doesnot smoke and does not have diabetes. She has had venous treatment including ligation and strippingof the greater saphenous vein on the left [...] swallowing difficulties, no hearing loss, no ear infection(s),no nose bleeds. Cardiovascular: normal blood pressure, no [...] of the lower extremities when possible, avoidance ofprolonged standing, daily exercise, weight loss if indicated, and use of a prescription pressure gradient support stocking, not only to alleviate symptoms, but also to help prevent further formation of varicosities. I also recommend a bilateral venous insufficiency study. Based on the findings of that I will make recommendations. I expect EVLT of the right greater saphenous vein will be indicatedbased on physical exam and EVLT if possible based on the study on the left versus phlebectomy. 2. Varicose veins of right lower extremity with inflammation (I83.11: Varicose veins of right lowerextremity with inflammation) As above. Ordered: [facility] Venous Duplex Insufficiency Bilat Follow-up With When Contact Information Vaishali ESCOBEDO MD Additional Instructions: [facility] GREG STUDY CALL RESULTS HOSE RX GIVEN [...] Use, 02/05/2021 Family History Aneurysm: Mother. COPD: Father.[facility] Memorial HospitalComment on above:Result Comment: Electronically Signed By: FANNY FUENTES, Vaishali Mcgovern.br\Date and Time Signed: 02/05/21 12:06 ESTRetail - Clinical Noteon 69-93-8966Avzsqi - Clinical Note [id number]#1.00CD:127[facility] Vital Signs Date TimeVital SignValuePerforming OlusbdjwaMjaxjwzf28-23-3887 10:47-0400 Diastolic blood schbxsih23 mm[Hg]Jayy Ball DO Work Phone: [facility]03-31-2025 10:47-0400 Systolic blood mubgwaun667 mm[Hg]Jayy Ball DO Work Phone: [facility]03-31-2025 10:44-0400 Body aafrbj716.1 cmBenjamin Ball DO Work Phone: [facility]03-31-2025 10:44-0400 Body mass index (BMI) [Ratio]34.1 kg/z3Kmsdccsn Ball DO Work Phone: [facility]03-31-2025 10:44-0400 Body clujcr36.98 kgBenjamin Ball DO Work Phone: [facility]03-31-2025 08:41-0400 Body mass index (BMI) [Ratio]33.22 kg/m6Chykw Gerardo DO Work Phone: [facility] HospitalXkvrgvzbcq23-10-4067 08:41-0400Body oluetn93.35 kgCorey Gerardo DO Work Phone: [facility] HospitalBucbbqrryi14-63-4455 08:41-0400Diastolic blood juvtgyjh463 mm[Hg]Radha Gerardo DO Work Phone: [facility] HospitalHinbnjoyxb68-27-4736 08:41-0400Systolic blood mm[Hg]Radha Gerardo DO Work Phone: [facility] HospitalPapkrcxont37-98-2211 12:00-0500Body .1 cmBarn[facility]ville Hospital02-24-2025 12:00-0500Body mass index (BMI) [Ratio]34.1 kg/s5AuspwxprdBarnesville Hospital02-24-2025 12:00-0500Body acgpfi65.04 [facility]02-24-2025 12:00-0500Diastolic blood itirjhdc89 mm[Hg][facility]02-24-2025 12:00-0500 Heart rate68 /[facility]02-24-2025 12:00-0500 Respiratory rate12 /[facility]02-24-2025 12:00-0500 Systolic blood ejmhnyyd698 mm[Hg][facility]10-02-2024 10:53-0400Body mass index (BMI) [Ratio]33.4 kg/w4HgaacznfkBarnesville Hospital10-02-2024 10:53-0400Diastolic blood mm[Hg][facility]10-02-2024 10:53-0400Systolic blood lipxumcv492 mm[Hg][facility]10-02-2024 10:33-0400Body .1 cmBarnesville Hospital10-02-2024 10:33-0400Body lcvevh29.17 kgBarnesville Hospital10-02-2024 10:33-0400Heart rate61 /[facility]10-02-2024 10:33-0400Respiratory rate12 /[facility]09-07-2022 08:36-0400Body ilgvwx854.1 cmDO Jayy Ball Work Phone: [facility]09-07-2022 08:36-0400 Body mass index (BMI) [Ratio]29.9 kg/m2DO Jayy Ball Work Phone: [facility]09-07-2022 08:36-0400 Body nnbidi90.64 kgDO Jayy Ball Work Phone: [phone]09-07-2022 08:10-0400 Body vqnfkcmempu39.9 [degF]DO Jayy Ball Work Phone: [phone]09-07-2022 08:10-0400 Diastolic blood atcxweaw73 mm[Hg]DO Jayy Ball Work Phone: [phone]09-07-2022 08:10-0400 Heart rate68 /minDO Jayy Ball Work Phone: [phone] [place], [place] 6292209-07-2022 08:10-0400 Respiratory rate20 /minDO Jayy Ball Work Phone: [phone]09-07-2022 08:10-0400 Systolic blood lwfwhoao319 mm[Hg]DO Jayy Ball Work Phone: [phone] Encounters Encounter DateEncounter TypeCare ProviderFacilityStart: 02-26-2025 End: 93-25-3649Jgaeln flowsheetCorey Gerardo DO Work Phone: [facility] BCP OBStart: 02-26-2025 End: 94-02-7143Bdtldh flowsheetCorey Gerardo DO Work Phone: [facility] BCP OBStart: 02-26-2025 End: 54-26-9694Xckqgrtdg Result EncounterCorey Gerardo DO Work Phone: n[facility] External Department UnsolicitedStart: 02-26-2025 End: 79-28-0529satfirrdxeErrnwxsr Ball DO Work Phone: [phone] Work Phone: Start: 02-26-2025 End: 39-83-3942Srtxsgm encounter procedureBenjamin Adalid DO Work Phone: [facility] GroupFormerly [facility] Work Phone: Start: 02-26-2025 End: 61-47-7366Sjfoxew encounter procedureCorey Gerardo DO Work Phone: noms HealthcareStart: 02-26-2025 End: 59-10-2386Usyzomjm preventive med est patient 40-64yrsCorey Gerardo DO Work Phone: [facility] BCP OBComment on above:Well woman exam with routine gynecological exam; Encounter for screening mammogram for malignant neoplasm of breast; Postmenopausal stateStart: 02-26-2025 End: 54-00-9383vnzrhgleilWGAYE FAZIONot AvailableStart: 01-22-2025 End: 96-91-6110qeqtmiqjgvSqyohofguOhio [facility] Hospital Work Phone: Start: 01-22-2025 End: 04-93-4463Sadwowc encounter procedureFormerly [facility] Work Phone: Start: 10-16-2024 End: 69-34-8139Tngbmpqgv Result EncounterCorey Gerardo DO Work Phone: noms External Department UnsolicitedStart: 10-16-2024 End: 45-69-7276Gfadcazbn Result EncounterCorey Gerardo DO Work Phone: n[facility] External Department UnsolicitedStart: 08-30-2024 End: 34-27-3846czhdomjytxBjvjiloxcOhio Valley Surgical Hospital Work Phone: Start: 08-30-2024 End: 98-74-3703Wvywhir encounter procedureFormerly [facility] Work Phone: Start: 01-25-2023 End: 02-34-9530iimchjriarST RADHA GERARDO .Facility:K7Mfdwb: 11-27-2022 End: 54-92-9765hvpdrcxzklNY ANNALISE Short [facility] Centercility:B3Anhof: 11-26-2022 End: 89-31-2670aeqhurngxaEP ANNALISE V WESTFacility:F6Xeksa: 11-25-2022 End: 08-97-5177dsemodhpfbWZ ANNALISE V WESTFacility:Z5Ymlyz: 11-24-2022 End: 96-93-8947jfwbofrqedKP ANNALISE V WESTFacility:O1Amgea: 11-19-2022 End: 68-62-3926mjuyyqbxbbJH ANNALISE V WESTFacility:C8Hcohs: 11-16-2022 End: 13-41-7776oxyustlpadCJ ANNALISE V WESTFacility:L6Nkvci: 11-13-2022 End: 00-97-3163vqxdhbapdaPQ ANNALISE V WESTFacility:M4Cibwb: 11-12-2022 End: 94-61-1119mxfpnyjvqoBW ANNALISE V WESTFacility:C7Ghwce: 11-09-2022 End: 86-97-8309vyzgrhiddfSZ ANNALISE V WESTFacility:Y2Rbbvh: 11-06-2022 End: 60-55-8753lvsnvbrcjgEI ANNALISE V WESTFacility:P3Ipmqh: 11-02-2022 End: 83-60-1368pyoldtrjppXR ANNALISE V WESTFacility:X4Xeocb: 10-28-2022 End: 70-06-1874eqjuziamcfUZ ANNALISE V WESTFacility:G9Kfgnt: 10-26-2022 End: 80-02-7562xmnhlackzwCJOOR D HIGHLANDERFacility:U1Uvmhl: 10-26-2022 End: 11-34-7665fzjfzcoyisQO ANNALISE V WESTFacility:U0Dvwvl: 10-19-2022 End: 43-75-6132qjpnmmavwyEM ANNALISE V WESTFacility:S6Kztgj: 10-12-2022 End: 80-22-9395itucznyoabJL ANNALISE V WESTFacility:A5Kczih: 10-09-2022 End: 29-18-9420ziafoxyohuUO ANNALISE V WESTFacility:Q1Qqghz: 09-30-2022 End: 63-68-1654npymgpyggfYO ANNALISE V WESTFacility:T1Lkats: 09-28-2022 End: 20-98-0405zvgdefnugrOKRNE D HIGHLANDERFacility:M9Lulof: 09-25-2022 End: 53-90-6285tdjaqdvkrlIF ANNALISE Short WESTFacility:Q6Fjdwh: 09-09-2022 End: 37-36-6118bcctctdhewNA ANNALISE Short WESTFacility:F3Gdhfb: 09-04-2022 End: 82-08-7727llqwyfwrhdBI ANNALISE Short WESTFacility:Q4Ttvex: 08-31-2022 End: 95-82-2473vnbemqesrjKMLFO D HIGHLANDERFacility:L5Crzyy: 08-14-2022 End: 97-91-1400uiywpphemfMD JAYY BALLFacility:D7Sgzvd: 08-10-2022 End: 82-09-7178zhykjcbnxmPAPOS D HIGHLANDERFacility:D8Temen: 08-05-2022 ambulatoryTonia CopseyFacility:[facility] City Hospitaltart: 08-05-2022 End: 60-49-1796qreztplaqeON Jayy Cordoba Work Phone: [facility] Work Phone: Start: 08-05-2022 End: 05-53-0503Rgiuhhmupc RecurringDO Jayy Cordoba Work Phone: [facility] Will Start: 07-13-2022 End: 55-81-8807ydupptowpwWJADW D [facility] NORTHANDERFacility:R8Hxfba: 06-12-2022 End: 07-30-6505shyrbwuxbfZWPIU D HIGHLANDERFacility:Y7Asqjm: 05-29-2022 End: 56-02-0734ehtuvrikxtGD RADHA CARRILLO .Facility:C9Npipy: 05-22-2022 End: 49-02-8842vtcawzbflmLA ANNALISE Short WESTFacility:F8Azaom: 05-11-2022 End: 60-36-1307lorienwdarZUAUY D [facility] NORTHANDERFacility:H1 Procedures DateProcedureProcedure DetailPerforming ClinicianStart: 28-04-6336U-ray of both knees, three viewsBenjamin Ball DO Work Phone: Start: 76-37-6087JPW,APTIMA HPV,AGE GDLNCorey Gerardo DO Work Phone: Start: 52-89-3593Gdbkaqkioyg observation [Identifier] in Cervix by Cyto stainCorey [employer] Work Phone: Start: 58-82-5886WB TOMOSYNTHESIS SCREENING BICorey [employer] Work Phone: Start: 12-30-4767DsnnqdzgywsPddnf [employer] Work Phone: Start: 60-22-9206Ddhhqkroqre observation [Identifier] in Cervix by Cyto stainCorey [employer] Work Phone: Start: 67-25-6049Hnzh cerv/vag auto thin layer prep mnl screenCorey [employer] Work Phone: Plan of Treatment DateCare ActivityDetailAuthorStart: 02-41-3414Xmrsmexsy for malignant neoplasm of cervixNOMS HealthcareStart: 21-87-5282Rfpxauwzw for malignant neoplasm of cervixPap SmearNOMS HealthcareStart: 23-15-6701Jdyemltnq for malignant neoplasm of colonNOMS HealthcareStart: 03-04-2026 End: 54-75-2917Nnczhln encounter procedureNOMS BCP OBStart: 42-80-0709Ixhfajfae for malignant neoplasm of breastMammogramNOMS HealthcareStart: 07-30-2025 Influenza vaccinationNOMS HealthcareStart: 02-26-2025 End: 43-99-1304YBB Skeletal system Views for bone densityDEXA bone density Imaging Routine Postmenopausal state Expected: 02/26/2025 (Approximate), Expires:02/26/2026NOMS HealthcareComment on above:Expected: 02/26/2025 (Approximate), Expires: 02/26/2026Start: 02-26-2025 End: 55-57-0513TD Breast - bilateral ScreeningBilateral screening mammogram Imaging Routine Encounter for screening mammogram for malignant neoplasm of breast Expected: 02/26/2025, Expires: 04/28/2026[facility] Work Phone: comment on above:Expected: 02/26/2025, Expires: 04/28/2026Start: 35-23-7231Q-ray of both knees, three viewsXR knee BI 3V - NOT FOR ER USETwin City Hospitaltart: 94-56-7309QB Knee - bilateral 3 ViewsTwin City Hospitaltart: 02-26-2025 End: 64-24-3076Mnnsxsl encounter oubofcbqx60/31/2025 8:40 AM EDT Office Visit [facility] [address] [place] [id number] Radha Carrillo, DO [address] [place] [address] ArrivedPACIFIC ALLIANCE [facility] OBComment on above:ArrivedStart: 75-44-1546Ngpfbmqxk vaccinationInfluenza Vaccine (#1)[facility] HospitalStart: 96-94-7525Fwcnjnosp for malignant neoplasm of colonGeneral [facility] Army Community HospitalMR Knee - left WO contrastBarnesville HospitalTHIN PREP TIS PAP AND HR HPV DNA THIN PREP TIS PAP AND HR HPV DNA Pathology and Cytology Routine Well woman exam with routine gynecological exam Ordered: 02/26/2025[facility] HospitalComment on above:Ordered: 02/26/2025 Immunizations Immunization DateImmunizationNotesCare LwkcbwijNduueucr32-85-4788WDHUH-36 mRNA, Comirnaty (Pfizer)[facility]09-28-2020influenza virus vaccine, unspecified formulationBarnesville Hospital Payers DatePayer CategoryPayerPolicy [id number] Health InsuranceMEDICAL MUTUAL [id number]-[id number] [id number] 2.16.840.1.677192.3.57[id number] 2.16.840.1.413129.3.57[id number] 2.16.840.1.351402.3.579.2.3[id number] 2.16.840.1.842871.3.579.2.32782-07-9644Vhiygib7305870 2.16.840.1.905155.3.579.2.36157-55-9475Evdkxqd2146106 2.16.840.1.980909.3.579.2.64546-21-8836Aukducp1527571 2.16.840.1.470622.3.579.[id number] 2.16.840.1.462853.3.579.2.13640-71-9329Zckdsyc6618634 2.16.840.1.860840.3.579.2.11358-40-2991Hpjjgsk5769405 2.16.840.1.198604.3.579.2.73458-66-8569Gkftbub4906856 2.16.840.1.617737.3.579.2.71716-62-6154Zzmigxx2997897 2.16.840.1.597007.3.579.2.71806-50-9446Cwtmpmn1480679 2.16.840.1.428227.3.579.2.18330-12-6652Wnieceo6671215 2.16.840.1.376888.3.579.[id number] 2.16.840.1.111715.3.57[id number] 2.16.840.1.344017.3.579.[id number] 2.16.840.1.154871.3.579.2.51750-10-2347Ireujxf2208214 2.16.840.1.193414.3.579.2.53249-41-6123Vbgeden1793370 2.16.840.1.990315.3.579.2.10635-80-4608Xuohons0474674 2.16.840.1.521851.3.579.2.24595-44-8432Kzucciv9625654 2.16.840.1.897587.3.579.2.83968-58-2008Yzjtfok7002383 2.16.840.1.314073.3.579.2.04738-31-1305Aayveqy2009867 2.16.840.1.218004.3.579.2.65744-21-5958Auhkhmp9833411 2.16.840.1.784015.3.579.2.17326-35-6586Nseifuo2504397 2.16.840.1.895818.3.579.2.93753-61-6419Xnaoijp1921911 2.16.840.1.710220.3.579.[id number] 2.16.840.1.234104.3.57[id number] 2.16.840.1.739284.3.579.2.19361-25-3552Dafdiiw9188415 2.16.840.1.190634.3.579.[id number] 2.16.840.1.230590.3.579.2.66022-74-4322Pmsjvmw9388209 2.16.840.1.004163.3.579.2.88893-94-7189Vhumymi9370302 2.16.840.1.970086.3.579.2.50927-74-7751Pgzifxw2670781 2.16.840.1.173322.3.579.2.56286-83-2945Txqncdw8888555 2.16.840.1.377702.3.579.[id number] 2.16.840.1.465345.3.579.2.451Yqpjucb59184742 2.840.1.230207.3.579.2.531 Social History DateTypeDetailFacilityStart: 08-05-2022 End: 84-72-7504Gztdass smoking status NHISNever smoked tobacco (finding) [facility]1600Wle Assigned At BirthFemale [facility] End: 58-03-3504FcdYtrtjq (finding)[facility]: 03-70-2600Bsywngj use and exposureSmokeless tobacco non-userNOMS Healthcare Start: 01-31-2024 End: 35-10-7908Peplttfxi beverage intakeCurrent drinker of alcohol (finding)[facility]Start: 01-10-2024 End: 90-33-5652Uvruifz of Social functionNOMS HealthcareStart: 01-10-2024 End: 69-56-3541Pyjedah use panelNOMS HealthcareStart: 24-62-3683Freujka Comment occasionalNOMS HealthcareStart: 74-80-6980Vio assigned at birthNot on fileNOMS HealthcareStart: 94-34-6610XisEjezebYDRUCarolina Center for [facility] Health History of Present illness Narrative 02-26-2025 Note Date & JsmbXkktRtwhkgpw13-26-5811 History of Present illness Narrative* Flor Kingston NP - 02/26/2025 8:40 AM EDT Reason for Appointment: Patient ID: Norberto Hernandez [...] nursing note reviewed. Exam conducted with a associate software application engineer present. Vitals: Estimated body mass index is [...] of: Radha Carrillo DO documented in [facility] 01-22-2025 Note Date & [id number] Evaluation note* Diagnosis Onset Date Resolution Status Admit Date Acute medial meniscus tear of left knee acuteFebruary 2024 11:47amLeft knee painacuteFebruary 2024 11:47am Complex tear of medial meniscus of left kneeacuteMarch 2024 10:21am [facility] Work Phone: Progress note 08-05-2022 Note Date & [id number] Progress note Author Nadege Yeboah [facility] August 05, 2022 8:36amNote Date/TimeSept2021 8:36[place] [address] Wound Center Provider Note Signed Patient: Norberto Hernandez MR#: [id number] : 1960 Acct:[id number] Age/Sex: 62 / F Copies to: DO Nadege Cooper APRN~ HPI Date of Visit Date of Visit: Date of Service: 08/05/2022 Time of Service: 08:27 Narrative HPI: 08/05/22 Norberto is a 62 year old female presenting to [facility] wound care program for an initial visit for eval and treatment of a left ankle area ulcer that doesappear d/t venous stasis disease. She has a long standing history with venous issues and did have surgery about 10 years ago. She was seen by [facility] and was referred to Dr. Freed in vascular and she is scheduled for a procedurein August. 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 FINDINGS: BONES:No fracture, acute abnormality, or significant arthropathy. SOFT TISSUES:No radiopaque foreign body. EFFUSION:None visible. OTHER: Negative. IMPRESSION: 1. No acute bone abnormality or findings to suggest osteomyelitis. Electronically authenticated by: J CARLOS SCHWARTZ Date: 2022-05-12 13:04[facility] Evaluation note Note Date & TypeNoteFacilityEvaluation note* Diagnosis Onset Date Resolution Status Edema of left lower leg chronicHemosiderin pigmentation of lower extremity due to varicose veinschronic OverweightchronicVenous stasis dermatitis of left lower extremitychronicVenous stasis ulcer of anklechronic [facility] Work Phone: Evaluation note Note Date & TypeNoteFacilityEvaluation noteNo assessment information available [facility] Work Phone: Evaluation note Note Date & TypeNoteFacilityEvaluation note* Diagnosis Onset Date Resolution Status Admit Date Left anterior knee pain acuteFebruary 2024 11:47amStrain of knee and leg, leftacuteFebruary 2024 11:47am [facility] Work Phone: Evaluation note Note Date & TypeNoteFacilityEvaluation note* Diagnosis Well woman exam with routine gynecological exam Routine gynecological examination Encounter for screening mammogram for malignant neoplasm of breast Postmenopausal state Asymptomatic postmenopausal status (age-related) (natural) documented in this encounter [facility] Summary Purpose Family History Relationship Condition Age at Onset Recorded Date/T danika Not Specified Diabetes mellitus Unknown Varicose veins of lower extremityUnknownfatherHeart diseaseUnknownHypertension UnknownCerebrovascular accident (CVA)Unknown Relationship Condition Age at Onset Recorded Date/T danika mother Diabetes mellitus Unknown Varicose veins of lower extremityUnknownfatherHeart diseaseUnknownHypertension UnknownCerebrovascular accident (CVA)Unknown Advance Directives Advance Directive Response Recorded Date/ [...] S83.232A - Complex tear of medial menisc , katia February 26, 2025 11:00am Reason for Visit Admit Date Acute medial meniscus tear of left knee January 22, 2025 11:47am Left knee pain January 22, 2025 11:47am Complex tear of medial meniscus of left knee February 26, 2025 10:21am Chief Complaint Admit Date left knee pain January 22, 2025 11:47am CONSULT DR. CORDOBA LT KNEE PAIN, WX February 26, 2025 10:21am S83.232A February 26, 2025 11: 00am Additional Source Comments INFORMATION SOURCE (unrecogn ized section and content) DATE CREATED AUTHOR 02/26/2021 [facility] DATE CREATED AUTHOR AUTHOR'S ORGANIZ ATION 08/11/2022 [facility] DATE CREATED AUTHOR AUTHOR'S ORGANIZ ATION 02/04/2023 [facility] DATE CREATED AUTHOR AUTHOR'S ORGANIZ ATION 02/26/2025 [facility] DATE CREATED AUTHOR AUTHOR'S ORGANIZ ATION 02/27/2025 [facility] Care Teams (unrecognized sec tion and content) Team Status: Inactive Member Role Status Dates Nadege Yeboah APRN Attending Provider Active Delma Cooper ProviderActive Team Status: Active Member Role Status Dates Jayy Cordoba DO Primary Care Provider Active Team Status: Inactive Member Role Status Dates Jayy Cordoba DO Primary Care Provide r, Attending Provider Active Start: August 30, 2024 End: August 30, 2024 Team Status: Inactive Member Role Status Dates Jayy Cordoba DO Primary Care Provide r, Attending Provider Active Start: January 22, 2025 End: January 22, 2025Team MemberRelationshipSpecialtyStart DateEnd Date Jayy Cordoba MD [address] [place] [id number] [facility] - [facility]01/31/24Team MemberRelationshipSpecialtyStart Date End Date Jayy Cordoba MD [address] [place] [id number] PCP - [facility]01/31/24 Team Status: Inactive Member Role Status Dates Jayy Cordoba DO Primary Care Provider Active Start: February 26, 2025 End: February 26, 2025Roger Pickett DOAttending ProviderActiveStart: February 26, 2025 End: February 26, 2025 Team Status: Active Member Role Status Dates Jayy Cordoba DO Primary Care Provider Active Start: February 26, 2025 Roger Pickett DOAttending ProviderActiveStart: February 26, 2025 Team MemberRelationshipSpecialtyStart DateEnd Date Jayy Cordoba DO [facility]CP - [facility]01/31/24 Goals (unrecognized section and content) Goals may be documented in a n alternate sectionGoals may be documented in an alternate sectionGoals may be documented in an alternate sectionGoals may be documented in an alternate sectionGoals may be documented in an alternate section Reason for Visit (unrecogniz ed section and content) ReasonCommentsWell Women Visit FOR RECORDS PERTAINING TO PATIENTS [...] BE BASED ON THE PRIMARY CLINICAL RECORDS. [facility]. provides no warranty or guarantee of the accuracy or completeness of information in this document.
--- OUTSIDE RECORDS SUMMARY | 2025-10-31 09:32 | XMS_ITS | Clinical Summary ---
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 45 g 01/31/2024ctive Family History Medical HistoryRelationNameCommentsHeart diseaseFatherHypertensionFatherStroke Maternal GrandmotherDiabetesMotherMelanomaNeg HxRelationNameStatusCommentsFather Maternal GrandmotherMother Social History Tobacco UseTypesPacks/DayYears UsedDateSmoking Tobacco: NeverSmokeless Tobacco: Never Tobacco Cessation:Counseling Given: Not Answered Alcohol UseStandard Drinks/WeekCommentsYes0 (1 standard drink = 0.6 oz pure alcohol)occasionalCommentsNoSex and Gender InformationValueDate Recorded Sex Assigned at BirthNot on fileLegal PtfJvopua08/15/2023 7:01 PM EDTGender IdentityNot on fileSexual OrientationNot on file Last Filed Vital Signs Vital SignReadingTime TakenCommentsBlood Svlucmci396/71499/ 8:41 AM EDT Pulse--Temperature--Respiratory Rate--Oxygen Saturation--Inhaled Oxygen Concentration--Axnqve70.4 kg (205 lb 12.8 oz)02/26/2025 8:41 AM AFGPadrqf346.6 cm (5' 6 )01/25/2023 12:00 PM ESTBody Mass Index33. 12:00 PM EST Plan of Treatment DateTypeDepartmentCare Team (Latest Contact Info)Ykizvynbfkf50/06/2026 9:00 AM EDTOffice Visit [facility] [address] [place] [address] Madhu Carrillo, [address] [place] [address] Health MaintenanceDue DateLast DoneCommentsCT Foaqfufprzmq1960Colonoscopy 1960FIT1960FOBT03/03/19617671Qnrtydgyiuzve1960OVID-19 Vaccine ( season), 06/29/2021, 06/08/2021Influenza Vaccine (#1)/1051Pgcopmhmr20, 09/01/2023, 01/25/2023 Colorectal Cancer Uyfwwzijk67/10/2027FIT-DNA, 12/12/2018Pap Smear, 01/31/2024ervical Cancer Vuxudmhqf47/04/2029 HPV/Ecndog5401/30/2029Pneumococcal Vaccine: Pediatrics (0 to 5 Years) and At-Risk Patients (6 to 64 Years)Aged OutNo longer eligible based on patient's age to complete this topic Procedures Procedure NamePriorityDate/TimeAssociated DiagnosisCommentsPAP SMEARRoutine 02/26/2025 12:00 AM EDTMM TOMOSYNTHESIS SCREENING BI10/16/2024 12:48 PM EST from Last 3 Months or Most Recently Relevant to Health Maintenance Results * Pap Smear (02/26/2025 12:00 AM EDT)Specimen (Source)Anatomical Location / LateralityCollection Method / VolumeCollection TimeReceived TimeSwabCervical swab / Unknown Narrative Authorizing ProviderResult TypeResult StatusFazio Nurse [facility] ObLAB CYTOLOGY ORDERABLESFinal ResultPerforming OrganizationAddressCity/State/ZIP CodePhone Number EXTERNAL LAB * MM TOMOSYNTHESIS SCREENING BI (10/16/2024 12:48 PM EST)Anatomical Region LateralityModalityOtherSpecimen (Source)Anatomical Location / Laterality Collection Method / VolumeCollection TimeReceived Time10/16/2024 12:48 PM EST Narrative 10/16/2024 12:49 PM EST [facility] ?[address] ? [place], [facility] ? Mammography Report ? Signed ? Patient: PETENORBERTO M ? MR#: [id number] ?? : 1960 ?Acct:[id number] ?? Age/Sex: 64 / F ?ADM Date: 10/16/24 ?? Loc: MAMMO ? Attending Dr: Madhu Carrillo D.O. ? Ordering Physician: Madhu Carrillo D.O. ?Results: ? Date of Service: 10/16/24 ?Follow Up: ? Procedure(s): MM tomosynthesis screening BI ?? Accession Number(s): [id number] ? cc: Jayy Cordoba D.O.; Madhu Carrillo D.O. ? Patient Name: ? NORBERTO HERNANDEZ ? MR#: [id number] ? : 1960 ? Exam Date: 10/16/2024 ?? Ordering Doctor: DR Madhu Carrillo . ? RADIOLOGY REPORT ? PROCEDURE: ? MM TOMOSYNTHESIS SCREENING BI ? COMPARISON: ? MM TOMOSYNTHESIS SCREENING BI, 09/01/2023. ??MG MAMM SCREEN 3D ?? GREG CAD, 05/29/2022. ??MG MAMM SCREEN 3D GREG CAD, 03/26/2021. ??MG MAMM GREG SCRN W ?? CAD DIG, 05/29/2013. ? INDICATIONS: ? Screening ? Calculator Name ? NCI Breast Cancer Risk Assessment Tool ?? 5 Year Breast Cancer Risk ? 1.90% ?? Lifetime Breast Cancer Risk ? 8.00% ?? Personal Breast Cancer ?No ?? Personal Ovarian Cancer ? No ?? Treatments ? None ?? Family Cancers ? Grandmother-maternal with uterine cancer at age ??60. ? LOCATION: ? [facility] ? BREAST COMPOSITION: ? The breasts are heterogeneously dense,which may ?? obscure small masses. ? FINDINGS: ? DIAGNOSTIC CATEGORY 2--BENIGN FINDING: ? RIGHT BREAST: ??No significant suspicious finding. ??No significant change has ?? occurred. ? LEFT BREAST: ??No significant suspicious finding. ??Scattered benign-appearing ?? lymph nodes are present. ??No significant change has occurred. ? RECOMMENDATIONS: ? ROUTINE MAMMOGRAM AND CLINICAL EVALUATION IN 12 MONTHS. ? PLEASE NOTE: ??A NORMAL MAMMOGRAM DOES NOT EXCLUDE THE POSSIBILITY OF BREAST ?? CANCER. ??A CLINICALLY SUSPICIOUS PALPABLE LUMP SHOULD BE BIOPSIED. ? Dictated by: J Carlos Schwartz M.D. on 10/16/2024 at 12:46 ? Approved by: J Carlos Schwartz M.D. on 10/16/2024 at 12:48 ? Dictated By: ?J Carlos Schwartz M.D. ? Signed By: ?10/16/24 1249 ? DD/ 1248 ? TD/TT: ? Dress Cutter: Procedure Note Radiology, Radiologist, MD - 10/16/2024 [facility] [address] [place] [address] Mammography Report Signed Patient: NORBERTO HERNANDEZ MMR#: [id number] : 1960cct:[id number] Age/Sex: 64 / FADM Date: 10/16/24 Loc: MAMMO Attending Dr: Madhu Carrillo D.O. Ordering Physician: Madhu Carrillo D.O.Results: Date of Service: 10/16/24Follow Up: Procedure(s): MM tomosynthesis screening BI Accession Number(s): [id number] cc: Jayy Cordoba D.O.; Madhu Carrillo D.O. Patient Name: NORBERTO HERNANDEZ MR#: [id number] : 1960 Exam Date: 10/16/2024 Ordering Doctor: DR Madhu Carrillo . RADIOLOGY REPORT PROCEDURE: MM TOMOSYNTHESIS SCREENING BI COMPARISON: MM TOMOSYNTHESIS SCREENING BI, 09/01/2023. MG MAMM OBQXBD0N GREG CAD, 05/29/2022. MG MAMM SCREEN 3D GREG CAD, 03/26/2021. MG MAMM BILSCRN W CAD DIG, 05/29/2013. INDICATIONS: Screening Calculator Name NCI Breast Cancer Risk Assessment Tool 5 Year Breast Cancer Risk 1.90% Lifetime Breast Cancer Risk 8.00% Personal Breast Cancer No Personal Ovarian Cancer No Treatments None Family Cancers Grandmother-maternal with uterine cancer at age 60. LOCATION: [facility] BREAST COMPOSITION: The breasts are heterogeneously dense,which may obscure small masses. FINDINGS: DIAGNOSTIC CATEGORY 2--BENIGN FINDING: RIGHT BREAST: No significant suspicious finding. No significant changehas occurred. LEFT BREAST: No significant suspicious finding. Scatteredbenign-appearing lymph nodes are present. No significant change has occurred. RECOMMENDATIONS: ROUTINE MAMMOGRAM AND CLINICAL EVALUATION IN 12 MONTHS. PLEASE NOTE: A NORMAL MAMMOGRAM DOES NOT EXCLUDE THE POSSIBILITY OFBREAST CANCER. A CLINICALLY SUSPICIOUS PALPABLE LUMP SHOULD BE BIOPSIED. Dictated by: J Carlos Schwartz M.D. on 10/16/2024 at 12:46 Approved by: J Carlos Schwartz M.D. on 10/16/2024 at 12:48 Dictated By: J Carlos Schwartz M.D. Signed By:10/16/24 1249 DD/ 1248 TD/TT: Dress Cutter: Authorizing ProviderResult TypeResult StatusCorey Gerardo DOCLINISYNC IMAGINGFinal Result from Last 3 Months or Most Recently Relevant to Health Maintenance [place] [address] Care Teams Team MemberRelationshipSpecialtyStart DateEnd Date Jayy Cordoba DO PCP - GeneralInternal Medicine01/31/24
== END 2025-10-31 09:29 | disposition home or self-care (01) ==
LOC: MAMMO 09:28
PROVIDERS: PCP Internal Medicine; Visit Provider Obstetrics & Gynecology
DX: Z12.31 Encounter for screening mammogram for malignant neoplasm of breast (principal); Z80.8 Family history of malignant neoplasm of other organs or systems
CPT/HCPCS: 77063; 77067